=== PATIENT | female | born 1995 | race Caucasian/White ===

== ENCOUNTER 2016-08-13 14:22 | Emergency (ER) | payer OTHER, SELFPAY ==
[~2016-08-13 14:22] MED LIST: /ACETCOD2T PO; ACET50TA PO; ANUS2.5C2 EXT; BACT800T5 PO; DOCU100C PO; IBUP200T2 PO; IRON325T3 PO; MOM30SS PO; PRENTAB74 PO
[2016-08-13 17:35] LABS: BASO % 0.2 % (0.0-1.0); EOS # 0.1 K/mm3 (0.0-0.50); EOS % 2.1 % (0.0-3.0); LARGE UNSTAINED CELL # 0.1 K/mm3 (0.0-0.4); LARGE UNSTAINED CELL % 2.4 % (0.0-4.0); LYMPH # 2.3 K/mm3 (1.5-6.5); MEAN CORPUSCULAR HEMOGLOBIN 26.9 pg (27.0-33.0); MEAN CORPUSCULAR HGB CONC 32.3 g/dl (32.0-36.5); MEAN CORPUSCULAR VOLUME 83.1 fl (80.0-96.0); MONO # 0.2 K/mm3 (0.0-0.8); MONO % 4.2 % (0.0-5.0); NEUTROPHILS # 2.5 K/mm3 (1.8-7.7); PLATELET COUNT, AUTOMATED 227 k/mm3 (150-450); RED CELL DISTRIBUTION WIDTH 13.7 % (11.5-14.5); WHITE BLOOD COUNT 5.2 K/mm3 (4.0-10.0)
--- NOTE | 2016-08-13 18:15 | REP ---
Clinical: Vaginal bleeding and pelvic pain for dating and viability. Technique: Transabdominal first trimester obstetrical ultrasound with color Doppler evaluation. Findings: Single live early intrauterine is appreciated. Gestational sac with yolk sac and pole identified. [place]-rump length of 7 mm corresponds to 6 weeks 4 days gestational age with estimated date of delivery 04/04/2017 . heart rate equals 121 beats per minute. Small subchorionic hemorrhage identified to the right of the gestational sac measuring 29 x 18 x 9 mm. Impression: Single live early intrauterine at 6 weeks 4 days gestational age. Small subchorionic hemorrhage. Complete anatomical assessment should be performed and 19-20 weeks. Signed by Luis A Paniagua MD 08/13/2016 06:07 P
--- NOTE | 2016-08-13 18:52 | EDDOCDS ---
Nurse's Notes [facility] Name: Anne-Marie Williamson Age: 20 yrs Sex: Female : 1995 Arrival Date: 08/13/2016 Time: 14:22 Bed I4 / M4 Private MD: [facility] Diagnosis: Threatened Presentation: 08/13 14:34 Presenting complaint: Patient states: abdominal cramps with vaginal spotting for 3 kr3 days. Home test was positive. Risk factors: The patient reports no loss of conciousness prior to arrival. This patient has not had a hysterectomy. This patient has not begun menopause. Adult Sepsis Screening: The patient does not have new or worsening altered mentation. Patient's respiratory rate is less than 22. Systolic blood pressure is greater than 100. Patient has a qSOFA score of 0- Negative Sepsis Screen. Suicide/Homicide risk assessment- the patient denies having any suicidal and/or homicidal ideations and does not present with any other emotional, behavioral or mental health complaints. Status: Patient is not a pharmacy services representative or dependent. Transition of care: patient was not received from another setting of care. 14:34 Acuity: CHELE Level 3 kr3 14:34 Method Of Arrival: Walkin/Carried/Asstd kr3 Triage Assessment: 14:35 General: Appears in no apparent distress, comfortable, Behavior is cooperative. Pain: kr3 Pain currently is 6 out of 10 on a pain scale. Quality of pain is described as crampy. HIV screening NA for this visit Offered previously. Respiratory: Respiratory effort is even, unlabored. : Reports vaginal bleeding that is spotty. 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 none - PMHx: Anemia; - PSHx: Adenoidectomy; - Social history: Smoking status: Patient uses tobacco products, current every day smoker. No barriers to communication noted, The patient speaks fluent Swedish, Speaks appropriately for age. - Family history: Not pertinent. - : The pt / caregiver states he / she is not on anticoagulants. Home medication list is obtained from the patient. - Exposure Risk Screening:: None identified. Screenin:20 Screening information is obtained from the patient. Fall risk: No risks identified. mcp Assistance ADL's: requires no assistance with activities of daily living. Abuse/DV Screen: The patient / caregiver reports he/she is: not in a situation that causes fear, pain or injury. Nutritional screening: No deficits noted. Advance Directives: Currently, there is no health care proxy. There is no active DNR order. There is no Power of Printing Screen Assembler. home support is adequate. Assessment: 17:19 General: Appears uncomfortable, Behavior is cooperative. Pain: Location: left lower mcp quadrant Pain currently is 4 out of 10 on a pain scale. Quality of pain is described as crampy. Neurological: No deficits noted. Respiratory: Airway is patent Respiratory effort is even, unlabored. : Reports cramping in left lower quadrant(s) vaginal bleeding that is spotty. Derm: Skin is pink, warm & dry. 18:50 General: Appears in no apparent distress, Behavior is cooperative. Pain: Denies pain. mcp Neurological: No deficits noted. Respiratory: Airway is patent Respiratory effort is even, unlabored. Derm: Skin is pink, warm & dry. Vital Signs: 14:24 BP 108 / 60; Pulse 107; Resp 18; Temp 97.2(O); Pulse Ox 100% on R/A; Weight 54.88 kg; ct3 Height 5 ft. 0 in. (152.40 cm) (R); Pain 8/10; 18:51 BP 99 / 57; Pulse 76; Resp 18; Temp 96.9(T); Pulse Ox 100% on R/A; Pain 0/10; mcp 14:24 Body Mass Index 23.63 (54.88 kg, 152.40 cm) ct3 Vitals: 14:24 Log In Time: August 13, 2016 at 14:21. ct3 ED Course: 14:23 Patient visited by Nelsy Merida PCA. ct3 14:23 [facility] is Private Physician. ct3 14:23 Patient moved to Waiting ct3 14:25 Patient moved to Pre RCE ct3 14:35 Triage Initiated kr3 16:13 [facility] Payment Agreement was scanned into [employer] and attached to record. lg 16:26 Lo Mukherjee,RN is Primary Nurse. srm 16:26 Pretty Juarez,PATTIE is Primary Nurse. srm 16:26 Patient moved to Triage 2 srm 16:46 Brad Lemus PA-C is PHCP. ar2 16:46 Zhang Elliott MD is Attending Physician. ar2 16:46 Patient visited by Brad Lemus PA-C. ar2 16:51 Patient moved to I5 / M5 kr3 16:53 Patient moved to I4 / M4 jam1 16:58 Urine Culture Sent. kr3 16:58 UA Sent. kr3 17:11 Rh Only Sent. jam1 17:11 CBC with Diff Sent. jam1 17:17 GC & Chlamydia Amplification Sent. jam1 17:17 Wet Prep Sent. jam1 17:21 The patient / caregiver is instructed regarding the plan of care and ED course. Patient mcp has correct armband on for positive identification. Placed in gown. Bed in low position. Call light in reach. 17:22 Patient visited by Jannet Adamson RN. mcp 17:22 Assist provider with pelvic exam: Set up pelvic tray. Specimens sent to lab. Performed mcp by Brad Lemus PA-C Patient tolerated well. 17:35 Patient moved to Ultrasound br3 17:54 Patient moved to I4 / M4 br3 18:08 PHCP role handed off by Brad Lemus PA-C btw 18:08 Kalpesh Goff PA is PHCP. btw 18:30 US 1st trimester Returned. EDMS 18:43 Prince Vazquez is Referral Physician. btw 18:50 No IV's were initiated during this patient's visit. mcp Point of Care Testing: Urine : 14:45 hCG Reading: Positive; Control Reading: Positive; ar3 Ranges: Order Results: Lab Order: UA; SPEC'M 08/13/16 16:54 Test: APPEARANCE, URINE; Value: CLOUDY; Range: CLEAR; Abnormal: Above high normal; Status: F Test: COLOR, URINE; Value: YELLOW; Range: YELLOW; Status: F Test: PH,URINE; Value: 6.0; Range: 5.0-9.0; Units: UNITS; Status: F Test: SPECIFIC GRAVITY URINE AUTO; Value: 1.017; Range: 1.002-1.035; Status: F Test: PROTEIN, URINE AUTO; Value: NEGATIVE; Range: NEGATIVE; Units: mg/dL; Status: F Test: GLUCOSE, URINE (UA) AUTO; Value: NEGATIVE; Range: NEGATIVE; Units: mg/dL; Status: F Test: KETONE, URINE AUTO; Value: NEGATIVE; Range: NEGATIVE; Units: mg/dL; Status: F Test: UROBILINOGEN, URINE AUTO; Value: 0.2; Range: 0.0-2.0; Units: mg/dL; Status: F Test: BILIRUBIN, URINE AUTO; Value: NEGATIVE; Range: NEGATIVE; Status: F Test: NITRITE, URINE AUTO; Value: NEGATIVE; Range: NEGATIVE; Status: F Test: LEUKOCYTE ESTERASE, URINE AUTO; Value: NEGATIVE; Range: NEGATIVE; Status: F Test: BLOOD, URINE BLOOD; Value: 1+; Range: NEGATIVE; Abnormal: Above high normal; Status: F Test: WBC, URINE AUTO; Value: 1; Range: 0-3; Units: /HPF; Status: F Test: RBC, URINE AUTO; Value: 4; Range: 0-3; Abnormal: Above high normal; Units: /HPF; Status: F Test: BACTERIA, URINE AUTO; Value: 3+; Range: NEGATIVE; Abnormal: Above high normal; Status: F Test: SQUAMOUS EPITHELIAL CELL UR AU; Value: 1; Range: 0-6; Units: /HPF; Status: F Test: MUCUS, URINE; Value: SMALL; Range: NEGATIVE; Status: F Test: HYALINE CAST, URINE AUTO; Value: 0; Range: 0-1; Units: /LPF; Status: F Lab Order: CBC with Diff; SPEC'M 08/13/16 17:06 Test: WHITE BLOOD COUNT; Value: 5.2; Range: 4.0-10.0; Units: K/mm3; Status: F Test: RED BLOOD COUNT; Value: 4.41; Range: 4.00-5.40; Units: M/mm3; Status: F Test: HEMOGLOBIN; Value: 11.8; Range: 12.0-16.0; Abnormal: Below low normal; Units: g/dl; Status: F Test: HEMATOCRIT; Value: 36.6; Range: 36.0-47.0; Units: %; Status: F Test: MEAN CORPUSCULAR VOLUME; Value: 83.1; Range: 80.0-96.0; Units: fl; Status: F Test: MEAN CORPUSCULAR HEMOGLOBIN; Value: 26.9; Range: 27.0-33.0; Abnormal: Below low normal; Units: pg; Status: F Test: MEAN CORPUSCULAR HGB CONC; Value: 32.3; Range: 32.0-36.5; Units: g/dl; Status: F Test: RED CELL DISTRIBUTION WIDTH; Value: 13.7; Range: 11.5-14.5; Units: %; Status: F Test: PLATELET COUNT, AUTOMATED; Value: 227; Range: 150-450; Units: k/mm3; Status: F Test: NEUTROPHILS %; Value: 48.0; Range: 36.0-66.0; Units: %; Status: F Test: LYMPH %; Value: 43.0; Range: 24.0-44.0; Units: %; Status: F Test: MONO %; Value: 4.2; Range: 0.0-5.0; Units: %; Status: F Test: EOS %; Value: 2.1; Range: 0.0-3.0; Units: %; Status: F Test: BASO %; Value: 0.2; Range: 0.0-1.0; Units: %; Status: F Test: LARGE UNSTAINED CELL %; Value: 2.4; Range: 0.0-4.0; Units: %; Status: F Test: NEUTROPHILS #; Value: 2.5; Range: 1.8-7.7; Units: K/mm3; Status: F Test: LYMPH #; Value: 2.3; Range: 1.5-6.5; Units: K/mm3; Status: F Test: MONO #; Value: 0.2; Range: 0.0-0.8; Units: K/mm3; Status: F Test: EOS #; Value: 0.1; Range: 0.0-0.50; Units: K/mm3; Status: F Test: BASO #; Value: 0.0; Range: 0.0-0.2; Units: K/mm3; Status: F Test: LARGE UNSTAINED CELL #; Value: 0.1; Range: 0.0-0.4; Units: K/mm3; Status: F Lab Order: Rh Only; SPEC'M 08/13/16 17:06 Test: RH; Value: POSITIVE; Status: F Lab Order: Wet Prep; SPEC'M 08/13/16 17:06 Test: WET PREP; Value: WET PREP RESULT; Status: F Test: WET PREP; Value: FEW WBC; Status: F Test: WET PREP; Value: FEW RBC; Status: F Test: WET PREP; Value: MODERATE CLUE CELLS PRESENT; Status: F Test: WET PREP; Value: MODERATE SHORT RODS PRESENT; Status: F Test: WET PREP; Value: MANY LONG RODS PRESENT; Status: F Radiology Order: US 1st trimester Test: US 1st trimester REASON FOR EXAMINATION: Bleeding; Clinical: Vaginal bleeding and pelvic pain for dating and viability.; ; Technique: Transabdominal first trimester obstetrical ultrasound with color; Doppler evaluation.; ; Findings:; Single live early intrauterine is appreciated. Gestational sac with; yolk sac and pole identified. [place]-rump length of 7 mm corresponds to 6; weeks 4 days gestational age with estimated date of delivery 04/04/2017 . ; heart rate equals 121 beats per minute. Small subchorionic hemorrhage identified; to the right of the gestational sac measuring 29 x 18 x 9 mm.; ; Impression:; Single live early intrauterine at 6 weeks 4 days gestational age. Small; subchorionic hemorrhage.; Complete anatomical assessment should be performed and 19-20 weeks.; ; ; Signed by; Luis A Paniagua MD 08/13/2016 06:07 P; Outcome: 18:43 Discharge ordered by Provider. btw 18:51 Discharge Assessment: patient administered narcotics - no. The following High Risk [facility] Discharge criteria are identified: None. Discharged to home ambulatory. Condition: stable. Discharge instructions given to patient, Instructed on discharge instructions, follow up and referral plans. Demonstrated understanding of instructions, Pt was receptive of discharge instructions/ teaching. Ultrasound Study completed. Property sent home with patient. 18:52 Patient left the ED. [facility] Signatures: Dispatcher [employer] EDMS Imelda Bello RN RN srm Peters, Mary, RN RN mcp Murphy, Jane, DRAMA PROFESSOR DRAMA PROFESSOR radha1 Сергей Perez Reg Reg lg Robie, Kathleen, RN RN kr3 Brad Lemus, PA-C PA-C ar2 Kylee Patrick br3 Renetta Johns, DRAMA PROFESSOR DRAMA PROFESSOR ar3 Kalpesh Goff PA PA btw Merida, Nelsy, DRAMA PROFESSOR DRAMA PROFESSOR ct3 MTDD
--- NOTE | 2016-08-13 18:52 | EDDOCDS ---
Physician Documentation [facility] Name: Anne-Marie Williamson Age: 20 yrs Sex: Female : 1995 Arrival Date: 08/13/2016 Time: 14:22 Bed I4 / M4 Private MD: [facility] Disposition: 08/13/16 18:43 Discharged to Home/Self Care. Impression: Threatened . - Condition is Stable. - Discharge Instructions: Threatened Miscarriage, [id number]. - Medication Reconciliation, Local Pharmacy Hours form. - Follow up: Prince Vazquez; When: Call to arrange an appointment; Reason: Further diagnostic work-up, Recheck today's complaints, Continuance of care, To establish care. - Problem is new. - Symptoms are unchanged. Historical: - Allergies: no known allergies; - Home Meds: 1. none - PMHx: Anemia; - PSHx: Adenoidectomy; - Social history: Smoking status: Patient uses tobacco products, current every day smoker. No barriers to communication noted, The patient speaks fluent [place], Speaks appropriately for age. - Family history: Not pertinent. - : The pt / caregiver states he / she is not on anticoagulants. Home medication list is obtained from the patient. - Exposure Risk Screening:: None identified. 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 0 in. (152.40 cm) (R); Pain 8/10; 18:51 BP 99 / 57; Pulse 76; Resp 18; Temp 96.9(T); Pulse Ox 100% on R/A; Pain 0/10; mcp 14:24 Body Mass Index 23.63 (54.88 kg, 152.40 cm) ct3 MDM: 14:36 UCG by Nursing ordered. kr3 16:13 [facility] Payment Agreement was scanned into [employer] and attached to record. lg 16:52 Set up pelvic ordered. ar2 16:52 Undress patient appropriately for examination ordered. ar2 16:52 UA Ordered. EDMS 16:52 Urine Culture Ordered. EDMS 16:52 CBC with Diff Ordered. EDMS 16:52 Rh Only Ordered. EDMS 16:52 Wet Prep Ordered. EDMS 16:52 GC & Chlamydia Amplification Ordered. EDMS 16:54 US 1st trimester Ordered. EDMS 17:41 Financial registration complete. gjb 18:36 UA Reviewed. btw 18:36 CBC with Diff Reviewed. btw 18:36 Rh Only Reviewed. btw 18:36 Wet Prep Reviewed. btw 18:36 US 1st trimester Reviewed. btw Point of Care Testing: Urine : 14:45 hCG Reading: Positive; Control Reading: Positive; ar3 Ranges: Signatures: Dispatcher [employer] Jannet Lopez RN RN mcp Сергей Perez Reg Reg lg Pretty Juarez,PATTIE RN kr3 Brad Lemus, PA-Gurjit PA-C ar2 Kalpesh Goff PA PA btw Beck, Gabriela gjb The chart was reviewed and I authenticate all verbal orders and agree with the evaluation and treatment provided.Attachments: 16:13 [facility] Payment Agreement lg MTDD
--- NOTE | 2016-08-15 19:53 | EDDOCDS ---
Physician Documentation [facility] Name: Anne-Marie Williamson Age: 20 yrs Sex: Female : 1995 Arrival Date: 08/13/2016 Time: 14:22 Bed I4 / M4 Private MD: [facility] - [facility] Disposition: 08/13/16 18:43 Discharged to Home/Self Care. Impression: Threatened . - Condition is Stable. - Discharge Instructions: Threatened Miscarriage, Xnkh-[id number]. - Medication Reconciliation, Local Pharmacy Hours form. - Follow up: Prince Vazquez; When: Call to arrange an appointment; Reason: Further diagnostic work-up, Recheck today's complaints, Continuance of care, To establish care. - Problem is new. - Symptoms are unchanged. Historical: - Allergies: no known allergies; - Home Meds: 1. none - PMHx: Anemia; - PSHx: Adenoidectomy; - Social history: Smoking status: Patient uses tobacco products, current every day smoker. No barriers to communication noted, The patient speaks fluent Moldovan, Speaks appropriately for age. - Family history: Not pertinent. - : The pt / caregiver states he / she is not on anticoagulants. Home medication list is obtained from the patient. - Exposure Risk Screening:: None identified. 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 0 in. (152.40 cm) (R); Pain 8/10; 18:51 BP 99 / 57; Pulse 76; Resp 18; Temp 96.9(T); Pulse Ox 100% on R/A; Pain 0/10; mcp 14:24 Body Mass Index 23.63 (54.88 kg, 152.40 cm) ct3 MDM: 14:36 UCG by Nursing ordered. kr3 16:13 [facility] [place] Agreement was scanned into [employer] and attached to record. lg 16:52 Set up pelvic ordered. ar2 16:52 Undress patient appropriately for examination ordered. ar2 16:52 UA Ordered. EDMS 16:52 Urine Culture Ordered. EDMS 16:52 CBC with Diff Ordered. EDMS 16:52 Rh Only Ordered. EDMS 16:52 Wet Prep Ordered. EDMS 16:52 GC & Chlamydia Amplification Ordered. EDMS 16:54 US 1st trimester Ordered. EDMS 17:41 Financial registration complete. gjb 18:36 UA Reviewed. btw 18:36 CBC with Diff Reviewed. btw 18:36 Rh Only Reviewed. btw 18:36 Wet Prep Reviewed. btw 18:36 US 1st trimester Reviewed. btw 08/14 10:17 T-Sheet-- Draft Copy was scanned into [employer] and attached to record. guido Point of Care Testing: Urine : 08/13 14:45 hCG Reading: Positive; Control Reading: Positive; ar3 Ranges: Signatures: Dispatcher [employer] Jannet Lopez, PATTIE BLANKENSHIP mcp Brigitte Robles, Reg Reg gb Сергей Perez, Reg Reg lg Pretty Juarez RN RN kr3 Brad Lemus PA-C PAEma ar2 Kalpesh Goff PA PA btw Beck, Gabriela gjb The chart was reviewed and I authenticate all verbal orders and agree with the evaluation and treatment provided.Attachments: 16:13 [facility] [place] Agreement lg 08/14 10:17 T-Sheet-- Draft Copy Chart Complete [facility]
--- NOTE | 2016-08-15 19:53 | EDDOCDS ---
Nurse's Notes [facility] Name: Anne-Marie Williamson Age: 20 yrs Sex: Female : 1995 Arrival Date: 08/13/2016 Time: 14:22 Bed I4 / M4 Private MD: [facility] Diagnosis: Threatened Presentation: 08/13 14:34 Presenting complaint: Patient states: abdominal cramps with vaginal spotting for 3 kr3 days. Home test was positive. Risk factors: The patient reports no loss of conciousness prior to arrival. This patient has not had a hysterectomy. This patient has not begun menopause. Adult Sepsis Screening: The patient does not have new or worsening altered mentation. Patient's respiratory rate is less than 22. Systolic blood pressure is greater than 100. Patient has a qSOFA score of 0- Negative Sepsis Screen. Suicide/Homicide risk assessment- the patient denies having any suicidal and/or homicidal ideations and does not present with any other emotional, behavioral or mental health complaints. 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 Transition of care: patient was not received from another setting of care. 14:34 Acuity: CHELE Level 3 kr3 14:34 Method Of Arrival: Walkin/Carried/Asstd kr3 Triage Assessment: 14:35 General: Appears in no apparent distress, comfortable, Behavior is cooperative. Pain: kr3 Pain currently is 6 out of 10 on a pain scale. Quality of pain is described as crampy. HIV screening NA for this visit Offered previously. Respiratory: Respiratory effort is even, unlabored. : Reports vaginal bleeding that is spotty. 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 none - PMHx: Anemia; - PSHx: Adenoidectomy; - Social history: Smoking status: Patient uses tobacco products, current every day smoker. No barriers to communication noted, The patient speaks fluent Bengali, Speaks appropriately for age. - Family history: Not pertinent. - : The pt / caregiver states he / she is not on anticoagulants. Home medication list is obtained from the patient. - Exposure Risk Screening:: None identified. Screenin:20 Screening information is obtained from the patient. Fall risk: No risks identified. mcp Assistance ADL's: requires no assistance with activities of daily living. Abuse/DV Screen: The patient / caregiver reports he/she is: not in a situation that causes fear, pain or injury. Nutritional screening: No deficits noted. Advance Directives: Currently, there is no health care proxy. There is no active DNR order. There is no Power of Dehydrogenation Operator. home support is adequate. Assessment: 17:19 General: Appears uncomfortable, Behavior is cooperative. Pain: Location: left lower mcp quadrant Pain currently is 4 out of 10 on a pain scale. Quality of pain is described as crampy. Neurological: No deficits noted. Respiratory: Airway is patent Respiratory effort is even, unlabored. : Reports cramping in left lower quadrant(s) vaginal bleeding that is spotty. Derm: Skin is pink, warm & dry. 18:50 General: Appears in no apparent distress, Behavior is cooperative. Pain: Denies pain. mcp Neurological: No deficits noted. Respiratory: Airway is patent Respiratory effort is even, unlabored. Derm: Skin is pink, warm & dry. Vital Signs: 14:24 BP 108 / 60; Pulse 107; Resp 18; Temp 97.2(O); Pulse Ox 100% on R/A; Weight 54.88 kg; ct3 Height 5 ft. 0 in. (152.40 cm) (R); Pain 8/10; 18:51 BP 99 / 57; Pulse 76; Resp 18; Temp 96.9(T); Pulse Ox 100% on R/A; Pain 0/10; mcp 14:24 Body Mass Index 23.63 (54.88 kg, 152.40 cm) ct3 Vitals: 14:24 Log In Time: August 13, 2016 at 14:21. ct3 ED Course: 14:23 Patient visited by Nelsy Merida PCA. ct3 14:23 [facility] is Private Physician. ct3 14:23 Patient moved to Waiting ct3 14:25 Patient moved to Pre RCE ct3 14:35 Triage Initiated kr3 16:13 [facility] Payment Agreement was scanned into GITR and attached to record. lg 16:26 Lo Mukherjee,RN is Primary Nurse. srm 16:26 Pretty Juarez,PATTIE is Primary Nurse. srm 16:26 Patient moved to Triage 2 srm 16:46 Brad Lemus PA-C is PHCP. ar2 16:46 Zhang Elliott MD is Attending Physician. ar2 16:46 Patient visited by Brad Lemus PA-C. ar2 16:51 Patient moved to I5 / M5 kr3 16:53 Patient moved to I4 / M4 jam1 16:58 Urine Culture Sent. kr3 16:58 UA Sent. kr3 17:11 Rh Only Sent. jam1 17:11 CBC with Diff Sent. jam1 17:17 GC & Chlamydia Amplification Sent. jam1 17:17 Wet Prep Sent. jam1 17:21 The patient / caregiver is instructed regarding the plan of care and ED course. Patient mcp has correct armband on for positive identification. Placed in gown. Bed in low position. Call light in reach. 17:22 Patient visited by Jannet Adamson RN. mcp 17:22 Assist provider with pelvic exam: Set up pelvic tray. Specimens sent to lab. Performed mcp by Brad Lemus PA-C Patient tolerated well. 17:35 Patient moved to Ultrasound br3 17:54 Patient moved to I4 / M4 br3 18:08 PHCP role handed off by Brad Lemus PA-C btw 18:08 Kalpesh Goff PA is PHCP. btw 18:30 US 1st trimester Returned. EDMS 18:43 Prince Vazquez is Referral Physician. btw 18:50 No IV's were initiated during this patient's visit. [facility] 08/14 10:17 T-Sheet-- Draft Copy was scanned into GITR and attached to record. Point of Care Testing: Urine : 08/13 14:45 hCG Reading: Positive; Control Reading: Positive; ar3 Ranges: Order Results: Lab Order: UA; SPEC'M 08/13/16 16:54 Test: APPEARANCE, URINE; Value: CLOUDY; Range: CLEAR; Abnormal: Above high normal; Status: F Test: COLOR, URINE; Value: YELLOW; Range: YELLOW; Status: F Test: PH,URINE; Value: 6.0; Range: 5.0-9.0; Units: UNITS; Status: F Test: SPECIFIC GRAVITY URINE AUTO; Value: 1.017; Range: 1.002-1.035; Status: F Test: PROTEIN, URINE AUTO; Value: NEGATIVE; Range: NEGATIVE; Units: mg/dL; Status: F Test: GLUCOSE, URINE (UA) AUTO; Value: NEGATIVE; Range: NEGATIVE; Units: mg/dL; Status: F Test: KETONE, URINE AUTO; Value: NEGATIVE; Range: NEGATIVE; Units: mg/dL; Status: F Test: UROBILINOGEN, URINE AUTO; Value: 0.2; Range: 0.0-2.0; Units: mg/dL; Status: F Test: BILIRUBIN, URINE AUTO; Value: NEGATIVE; Range: NEGATIVE; Status: F Test: NITRITE, URINE AUTO; Value: NEGATIVE; Range: NEGATIVE; Status: F Test: LEUKOCYTE ESTERASE, URINE AUTO; Value: NEGATIVE; Range: NEGATIVE; Status: F Test: BLOOD, URINE BLOOD; Value: 1+; Range: NEGATIVE; Abnormal: Above high normal; Status: F Test: WBC, URINE AUTO; Value: 1; Range: 0-3; Units: /HPF; Status: F Test: RBC, URINE AUTO; Value: 4; Range: 0-3; Abnormal: Above high normal; Units: /HPF; Status: F Test: BACTERIA, URINE AUTO; Value: 3+; Range: NEGATIVE; Abnormal: Above high normal; Status: F Test: SQUAMOUS EPITHELIAL CELL UR AU; Value: 1; Range: 0-6; Units: /HPF; Status: F Test: MUCUS, URINE; Value: SMALL; Range: NEGATIVE; Status: F Test: HYALINE CAST, URINE AUTO; Value: 0; Range: 0-1; Units: /LPF; Status: F Lab Order: Urine Culture; SPEC'M 08/13/16 16:54 Test: URINE CULTURE; Value: <EXTERNAL COMMENT eCWMed> FULL REPORT IN LAB NOTES (eCW and Medent).; Status: F Test: URINE CULTURE; Value: ORGANISM 1: ESCHERICHIA COLI; Status: F Test: URINE CULTURE; Value: ESCHERICHIA COLI; Status: F Test: URINE CULTURE; Value: COLONY COUNT CFU/ml >100,000; Status: F Test: URINE CULTURE; Value: GRAM NEG SENSI - VITEK 80; Status: F Test: URINE CULTURE; Value: Method: VIT2; Status: F Test: URINE CULTURE; Value: EXTD BRD SPCTRM BETA LACTAMASE -; Status: F Test: URINE CULTURE; Value: TRIMETHOPRIM/SULFAMETHOXAZOLE <=20 S; Status: F Test: URINE CULTURE; Value: AMPICILLIN 4 S; Status: F Test: URINE CULTURE; Value: GENTAMICIN <=1 S; Status: F Test: URINE CULTURE; Value: NITROFURANTOIN <=16 S; Status: F Test: URINE CULTURE; Value: CEFAZOLIN <=4 S; Status: F Test: URINE CULTURE; Value: LEVOFLOXACIN <=0.12 S; Status: F Test: URINE CULTURE; Value: TOBRAMYCIN <=1 S; Status: F Test: URINE CULTURE; Value: CEFTRIAXONE <=1 S; Status: F Test: URINE CULTURE; Value: CEFTAZIDIME <=1 S; Status: F Test: URINE CULTURE; Value: AMPICILLIN/SULBACTAM <=2 S; Status: F Test: URINE CULTURE; Value: PIPERACILLIN/TAZOBACTAM <=4 S; Status: F Test: URINE CULTURE; Value: AZTREONAM <=1 S; Status: F Test: URINE CULTURE; Value: ERTAPENEM <=0.5 S; Status: F Test: URINE CULTURE; Value: MEROPENEM <=0.25 S; Status: F Test: URINE CULTURE; Value: TIGECYCLINE <=0.5 S; Status: F Test: URINE CULTURE; Value: CEFEPIME <=1 S; Status: F Lab Order: CBC with Diff; SPEC'M 08/13/16 17:06 Test: WHITE BLOOD COUNT; Value: 5.2; Range: 4.0-10.0; Units: K/mm3; Status: F Test: RED BLOOD COUNT; Value: 4.41; Range: 4.00-5.40; Units: M/mm3; Status: F Test: HEMOGLOBIN; Value: 11.8; Range: 12.0-16.0; Abnormal: Below low normal; Units: g/dl; Status: F Test: HEMATOCRIT; Value: 36.6; Range: 36.0-47.0; Units: %; Status: F Test: MEAN CORPUSCULAR VOLUME; Value: 83.1; Range: 80.0-96.0; Units: fl; Status: F Test: MEAN CORPUSCULAR HEMOGLOBIN; Value: 26.9; Range: 27.0-33.0; Abnormal: Below low normal; Units: pg; Status: F Test: MEAN CORPUSCULAR HGB CONC; Value: 32.3; Range: 32.0-36.5; Units: g/dl; Status: F Test: RED CELL DISTRIBUTION WIDTH; Value: 13.7; Range: 11.5-14.5; Units: %; Status: F Test: PLATELET COUNT, AUTOMATED; Value: 227; Range: 150-450; Units: k/mm3; Status: F Test: NEUTROPHILS %; Value: 48.0; Range: 36.0-66.0; Units: %; Status: F Test: LYMPH %; Value: 43.0; Range: 24.0-44.0; Units: %; Status: F Test: MONO %; Value: 4.2; Range: 0.0-5.0; Units: %; Status: F Test: EOS %; Value: 2.1; Range: 0.0-3.0; Units: %; Status: F Test: BASO %; Value: 0.2; Range: 0.0-1.0; Units: %; Status: F Test: LARGE UNSTAINED CELL %; Value: 2.4; Range: 0.0-4.0; Units: %; Status: F Test: NEUTROPHILS #; Value: 2.5; Range: 1.8-7.7; Units: K/mm3; Status: F Test: LYMPH #; Value: 2.3; Range: 1.5-6.5; Units: K/mm3; Status: F Test: MONO #; Value: 0.2; Range: 0.0-0.8; Units: K/mm3; Status: F Test: EOS #; Value: 0.1; Range: 0.0-0.50; Units: K/mm3; Status: F Test: BASO #; Value: 0.0; Range: 0.0-0.2; Units: K/mm3; Status: F Test: LARGE UNSTAINED CELL #; Value: 0.1; Range: 0.0-0.4; Units: K/mm3; Status: F Lab Order: Rh Only; SPEC08/13/16 17:06 Test: RH; Value: POSITIVE; Status: F Lab Order: Wet Prep; SPEC'M 08/13/16 17:06 Test: WET PREP; Value: WET PREP RESULT; Status: F Test: WET PREP; Value: FEW WBC; Status: F Test: WET PREP; Value: FEW RBC; Status: F Test: WET PREP; Value: MODERATE CLUE CELLS PRESENT; Status: F Test: WET PREP; Value: MODERATE SHORT RODS PRESENT; Status: F Test: WET PREP; Value: MANY LONG RODS PRESENT; Status: F Lab Order: GC & Chlamydia Amplification; SPEC'M 08/13/16 17:06 Test: CHLAMYDIA DNA AMPLIFICATION; Value: NEGATIVE; Range: NEGATIVE; Status: F Test: GC DNA AMPLIFICATION; Value: NEGATIVE; Range: NEGATIVE; Status: F Radiology Order: US 1st trimester Test: US 1st trimester REASON FOR EXAMINATION: Bleeding; Clinical: Vaginal bleeding and pelvic pain for dating and viability.; ; Technique: Transabdominal first trimester obstetrical ultrasound with color; Doppler evaluation.; ; Findings:; Single live early intrauterine is appreciated. Gestational sac with; yolk sac and pole identified. [place]-rump length of 7 mm corresponds to 6; weeks 4 days gestational age with estimated date of delivery 04/04/2017 . ; heart rate equals 121 beats per minute. Small subchorionic hemorrhage identified; to the right of the gestational sac measuring 29 x 18 x 9 mm.; ; Impression:; Single live early intrauterine at 6 weeks 4 days gestational age. Small; subchorionic hemorrhage.; Complete anatomical assessment should be performed and 19-20 weeks.; ; ; Signed by; Luis A Paniagua MD 08/13/2016 06:07 P; Outcome: 18:43 Discharge ordered by Provider. btw 18:51 Discharge Assessment: patient administered narcotics - no. The following High Risk [facility] Discharge criteria are identified: None. Discharged to home ambulatory. Condition: stable. Discharge instructions given to patient, Instructed on discharge instructions, follow up and referral plans. Demonstrated understanding of instructions, Pt was receptive of discharge instructions/ teaching. Ultrasound Study completed. Property sent home with patient. 18:[address] [facility] Signatures: Dispatcher Med[employer] EDMS Imelda Bello, Jannet Burr RN, RN RN mcp Murphy, Jane, ADORE PROGRAM PLANNER jam1 Brigitte Robles, Reg Reg gb Сергей Perez, Reg Reg lg Pretty Juarez RN RN kr3 Brad Lemus, KIEL-C PA-C ar2 Kylee Patrick br3 Renetta Johns, PROGRAM PLANNER PROGRAM PLANNER ar3 Kalpesh Goff PA PA btw Nelsy Merida, PROGRAM PLANNER PROGRAM PLANNER ct3 Chart Complete MTDD
--- NOTE | 2016-08-15 19:53 | EDDOCDS ---
Physician Documentation [facility] Name: Anne-Marie Williamson Age: 20 yrs Sex: Female : 1995 Arrival Date: 08/13/2016 Time: 14:22 Bed I4 / M4 Private MD: [facility] Disposition: 08/13/16 18:43 Discharged to Home/Self Care. Impression: Threatened . - Condition is Stable. - Discharge Instructions: Threatened Miscarriage, [id number]. - Medication Reconciliation, Local Pharmacy Hours form. - Follow up: Prince Vazquez; When: Call to arrange an appointment; Reason: Further diagnostic work-up, Recheck today's complaints, Continuance of care, To establish care. - Problem is new. - Symptoms are unchanged. Historical: - Allergies: no known allergies; - Home Meds: 1. none - PMHx: Anemia; - PSHx: Adenoidectomy; - Social history: Smoking status: Patient uses tobacco products, current every day smoker. No barriers to communication noted, The patient speaks fluent Moroccan, Speaks appropriately for age. - Family history: Not pertinent. - : The pt / caregiver states he / she is not on anticoagulants. Home medication list is obtained from the patient. - Exposure Risk Screening:: None identified. 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 0 in. (152.40 cm) (R); Pain 8/10; 18:51 BP 99 / 57; Pulse 76; Resp 18; Temp 96.9(T); Pulse Ox 100% on R/A; Pain 0/10; mcp 14:24 Body Mass Index 23.63 (54.88 kg, 152.40 cm) ct3 MDM: 14:36 UCG by Nursing ordered. kr3 16:13 [facility] Payment Agreement was scanned into StormMQ and attached to record. lg 16:52 Set up pelvic ordered. ar2 16:52 Undress patient appropriately for examination ordered. ar2 16:52 UA Ordered. EDMS 16:52 Urine Culture Ordered. EDMS 16:52 CBC with Diff Ordered. EDMS 16:52 Rh Only Ordered. EDMS 16:52 Wet Prep Ordered. EDMS 16:52 GC & Chlamydia Amplification Ordered. EDMS 16:54 US 1st trimester Ordered. EDMS 17:41 Financial registration complete. gjb 18:36 UA Reviewed. btw 18:36 CBC with Diff Reviewed. btw 18:36 Rh Only Reviewed. btw 18:36 Wet Prep Reviewed. btw 18:36 US 1st trimester Reviewed. btw 08/14 10:17 T-Sheet-- Draft Copy was scanned into StormMQ and attached to record. guido Point of Care Testing: Urine : 08/13 14:45 hCG Reading: Positive; Control Reading: Positive; ar3 Ranges: Signatures: Dispatcher [employer]Host Jannet Lopez, PATTIE BLANKENSHIP mcp Brigitte Robles, Reg Reg gb Сергей Perez, Reg Reg lg Pretty Juarez RN RN kr3 Brad Lemus PA-C PAEma ar2 Kalpesh Goff PA PA btw Beck, Gabriela gjb The chart was reviewed and I authenticate all verbal orders and agree with the evaluation and treatment provided.Attachments: 16:13 [facility] Payment Agreement lg 08/14 10:17 T-Sheet-- Draft Copy Chart Complete [facility]
== END 2016-08-13 18:52 | disposition home or self-care (01) ==
LOC: M ED 14:22
DX: O20.0 Threatened abortion (principal); O99.011 Anemia complicating pregnancy, first trimester; O99.331 Smoking (tobacco) complicating pregnancy, first trimester; F17.210 Nicotine dependence, cigarettes, uncomplicated; Z3A.01 Less than 8 weeks gestation of pregnancy

== ENCOUNTER → 2016-08-15 | Outpatient (CLI) | payer OTHER, SELFPAY ==
[2016-08-15 16:41] LABS: BASO % 0.5 % (0.0-1.0); EOS # 0.1 K/mm3 (0.0-0.50); EOS % 2.4 % (0.0-3.0); LARGE UNSTAINED CELL # 0.2 K/mm3 (0.0-0.4); LARGE UNSTAINED CELL % 2.7 % (0.0-4.0); LYMPH # 2.3 K/mm3 (1.5-6.5); LYMPH % 41.6 % (24.0-44.0); MEAN CORPUSCULAR HEMOGLOBIN 27.3 pg (27.0-33.0); MEAN CORPUSCULAR HGB CONC 32.8 g/dl (32.0-36.5); MEAN CORPUSCULAR VOLUME 83.4 fl (80.0-96.0); MONO # 0.3 K/mm3 (0.0-0.8); MONO % 4.9 % (0.0-5.0); NEUTROPHILS # 2.6 K/mm3 (1.8-7.7); NEUTROPHILS % 47.8 % (36.0-66.0); PLATELET COUNT, AUTOMATED 237 k/mm3 (150-450); RED CELL DISTRIBUTION WIDTH 13.4 % (11.5-14.5); WHITE BLOOD COUNT 5.5 K/mm3 (4.0-10.0)
[2016-08-16 11:37] LABS: HBsAg Prenatal NEGATIVE (NEGATIVE)
[2016-08-16 11:43] LABS: CONTROL LINE INT CTR LINE PRESENT; HIV SCRN NEGATIVE (NEGATIVE); HIV SCRN1 NEGATIVE (NEGATIVE)
== END ==
LOC: M LAB 15:31
PROVIDERS: ATTEND Obstetrics & Gynecology
DX: Z34.81 Encounter for supervision of other normal pregnancy, first trimester (principal)

== ENCOUNTER → 2016-09-16 | Outpatient (CLI) | payer SELFPAY ==
[2016-09-16 18:42] LABS: ALBUMIN 3.1 GM/DL (3.2-5.2); ALBUMIN/GLOBULIN RATIO 0.97 (1.00-1.93); ALKALINE PHOSPHATASE 48 U/L (45-117); ALT/SGPT 93 U/L (12-78); AST/SGOT 56 U/L (15-37); BILIRUBIN,DIRECT < 0.1 MG/DL (0.0-0.2); BILIRUBIN,TOTAL 0.2 MG/DL (0.2-1.0); TOTAL PROTEIN 6.3 GM/DL (6.4-8.2)
== END ==
LOC: M SMT 14:19
PROVIDERS: ATTEND Obstetrics & Gynecology
DX: B18.2 Chronic viral hepatitis C (principal)

== ENCOUNTER → 2016-11-14 | Outpatient (CLI) | payer SELFPAY ==
[2016-11-14 17:54] LABS: ALBUMIN 2.7 GM/DL (3.2-5.2); ALBUMIN/GLOBULIN RATIO 0.77 (1.00-1.93); ALKALINE PHOSPHATASE 56 U/L (45-117); ALT/SGPT 69 U/L (12-78); AST/SGOT 42 U/L (15-37); BILIRUBIN,DIRECT < 0.1 MG/DL (0.0-0.2); BILIRUBIN,TOTAL 0.3 MG/DL (0.2-1.0); TOTAL PROTEIN 6.2 GM/DL (6.4-8.2)
== END ==
LOC: M SMT 14:56
PROVIDERS: ATTEND Advanced Practice Midwife
DX: O98.412 Viral hepatitis complicating pregnancy, second trimester (principal); Z3A.00 Weeks of gestation of pregnancy not specified

== ENCOUNTER → 2016-12-11 | Outpatient (CLI) | payer SELFPAY ==
--- NOTE | 2016-12-24 09:44 | REP ---
Clinical: Anatomical evaluation. Comparison: 08/13/2016 . Findings: Examination demonstrates a single live intrauterine in breech presentation. motion is identified by technologist. Placenta is noted posteriorly and grade zero without evidence for placenta previa or abruption. Amniotic fluid volume is normal. Cervix measures 3.9 cm in length and appears closed. No evidence for nuchal cord. Gestational age by LMP 27 weeks 2 days with JAGDISH 03/10/2017 . Gestational age by current measurements 24 weeks 1 day with JAGDISH 04/01/2017 . FHR equals 136 beats per minute. BPD 5.8 cm 23 weeks 6 days HC 21.8 cm 23 weeks 6 days AC 21.3 cm 25 weeks 6 days FL 4.5 cm 24 weeks 5 days HL 4.5 cm 26 weeks 5 days HC/AC ratio 1.02 Estimated weight 772 grams ( 86th percentile based on age by first ultrasound at 23 weeks 5 days ). Anatomical assessment demonstrates normal structures including cranium, choroid plexus, cavum, cerebellum/posterior fossa, facial features, lungs, four-chamber heart/ventricular outflow tracts, diaphragm, stomach, cord insertion/three-vessel cord, kidneys/bladder, spine, and extremities. Impression: 1. Single live intrauterine in breech presentation demonstrating appropriate interval growth compared to first ultrasound. 2. Anatomical assessment is complete and normal. Signed by Luis A Paniagua MD 12/12/2016 06:13 A
== END ==
LOC: M SMT 13:08
PROVIDERS: ATTEND Surgery
DX: Z34.82 Encounter for supervision of other normal pregnancy, second trimester (principal); Z3A.24 24 weeks gestation of pregnancy

== ENCOUNTER → 2016-12-17 | Outpatient (REF) | payer MEDICAID, OTHER ==
[2016-12-17 14:54] LABS: BASO % 0.2 % (0.0-1.0); EOS # 0.1 K/mm3 (0.0-0.50); EOS % 1.1 % (0.0-3.0); LARGE UNSTAINED CELL # 0.1 K/mm3 (0.0-0.4); LARGE UNSTAINED CELL % 1.2 % (0.0-4.0); LYMPH # 1.7 K/mm3 (1.5-6.5); LYMPH % 24.8 % (24.0-44.0); MEAN CORPUSCULAR HEMOGLOBIN 30.3 pg (27.0-33.0); MEAN CORPUSCULAR HGB CONC 33.6 g/dl (32.0-36.5); MONO # 0.4 K/mm3 (0.0-0.8); MONO % 6.5 % (0.0-5.0); NEUTROPHILS # 4.4 K/mm3 (1.8-7.7); NEUTROPHILS % 66.2 % (36.0-66.0); PLATELET COUNT, AUTOMATED 237 k/mm3 (150-450); RED CELL DISTRIBUTION WIDTH 13.4 % (11.5-14.5); WHITE BLOOD COUNT 6.7 K/mm3 (4.0-10.0)
[2016-12-17 15:27] LABS: ALBUMIN 2.9 GM/DL (3.2-5.2); ALBUMIN/GLOBULIN RATIO 0.81 (1.00-1.93); ALKALINE PHOSPHATASE 67 U/L (45-117); ALT/SGPT 42 U/L (12-78); ANION GAP 7 MEQ/L (8-16); AST/SGOT 33 U/L (15-37); BILIRUBIN,TOTAL 0.3 MG/DL (0.2-1.0); BLOOD UREA NITROGEN 8 MG/DL (7-18); CALCIUM LEVEL 8.5 MG/DL (8.5-10.1); CARBON DIOXIDE LEVEL 26 MEQ/L (21-32); CHLORIDE LEVEL 104 MEQ/L (98-107); CREATININE FOR GFR 0.28 MG/DL (0.55-1.02); GLOMERULAR FILTRATION RATE > 60.0 (>60); GLUCOSE, FASTING 52 MG/DL (70-105); POTASSIUM SERUM 4.1 MEQ/L (3.5-5.1); SODIUM LEVEL 137 MEQ/L (136-145); TOTAL PROTEIN 6.5 GM/DL (6.4-8.2)
== END ==
LOC: M SFHCPLAZ 11:03
PROVIDERS: ATTEND Internal Medicine Infectious Disease
DX: B19.20 Unspecified viral hepatitis C without hepatic coma (principal)

== ENCOUNTER → 2017-01-01 | Outpatient (CLI) | payer OTHER ==
[~2017-01-01] MED LIST changes: +IBUP-1114 PO; +PRENTAB9 PO
[2017-01-01 16:24] LABS: BASO % 0.1 % (0.0-1.0); EOS # 0.1 K/mm3 (0.0-0.50); LARGE UNSTAINED CELL # 0.1 K/mm3 (0.0-0.4); LARGE UNSTAINED CELL % 1.5 % (0.0-4.0); LYMPH # 1.7 K/mm3 (1.5-6.5); LYMPH % 26.3 % (24.0-44.0); MEAN CORPUSCULAR HEMOGLOBIN 30.4 pg (27.0-33.0); MEAN CORPUSCULAR HGB CONC 33.1 g/dl (32.0-36.5); MEAN CORPUSCULAR VOLUME 91.9 fl (80.0-96.0); MONO # 0.3 K/mm3 (0.0-0.8); NEUTROPHILS # 4.3 K/mm3 (1.8-7.7); PLATELET COUNT, AUTOMATED 260 k/mm3 (150-450); RED CELL DISTRIBUTION WIDTH 13.1 % (11.5-14.5); WHITE BLOOD COUNT 6.6 K/mm3 (4.0-10.0)
[2017-01-06 14:10] LABS: HEPATITIS C QUANTITATION 261450 IU/mL (.)
== END ==
LOC: M WUC 12:24
PROVIDERS: ATTEND Advanced Practice Midwife
DX: O98.412 Viral hepatitis complicating pregnancy, second trimester (principal)

== ENCOUNTER → 2017-02-20 | Outpatient (REF) | payer MEDICAID, OTHER ==
[2017-02-20 14:02] LABS: ALBUMIN 2.8 GM/DL (3.2-5.2); ALBUMIN/GLOBULIN RATIO 0.82 (1.00-1.93); ALKALINE PHOSPHATASE 93 U/L (45-117); ALT/SGPT 38 U/L (12-78); AST/SGOT 35 U/L (15-37); BILIRUBIN,DIRECT < 0.1 MG/DL (0.0-0.2); BILIRUBIN,TOTAL 0.3 MG/DL (0.2-1.0); TOTAL PROTEIN 6.2 GM/DL (6.4-8.2)
[2017-02-24 10:09] LABS: HEPATITIS C QUANTITATION 333090 IU/mL (.)
== END ==
LOC: M SFHCPLAZ 12:03
PROVIDERS: ATTEND Internal Medicine Infectious Disease
DX: B19.20 Unspecified viral hepatitis C without hepatic coma (principal)

== ENCOUNTER → 2017-02-21 | Outpatient (CLI) | payer OTHER, MEDICAID ==
[2017-02-21 17:12] LABS: AMYLASE 37 U/L (25-115)
== END ==
LOC: M SMT 14:56
PROVIDERS: ATTEND Advanced Practice Midwife
DX: R10.816 Epigastric abdominal tenderness (principal)

== ENCOUNTER → 2017-03-04 | Outpatient (CLI) | payer MEDICAID, OTHER ==
--- NOTE | 2017-03-04 08:40 | REP ---
Clinical: Epigastric and abdominal pain. Technique: Esquivel scale ultrasound using curved array transducer. Findings: The liver and pancreas are normal in contour, size, and echogenicity without focal hepatic or pancreatic lesions identified. The gallbladder is normal without gallstones, wall thickening or pericholecystic fluid. No biliary ductal dilatation is appreciated, and the common bile duct measures 1.7 mm diameter. The right kidney is normal in reniform shape without hydronephrosis and measures 11.1 x 5.9 x 5.1 cm. Rounded echogenic foci within the kidney measuring up to 9 mm suggest small benign angiomyolipomas. No ascites. Visualized portions of the abdominal aorta normal. Impression: Subcentimeter renal angiomyolipomas suggested. Otherwise, normal right upper quadrant and gallbladder abdominal ultrasound. Signed by Luis A Paniagua MD 03/04/2017 08:32 A
== END ==
LOC: M RAD 07:53
PROVIDERS: ATTEND Advanced Practice Midwife
DX: R10.816 Epigastric abdominal tenderness (principal)

== ENCOUNTER → 2017-03-11 | Outpatient (CLI) | payer MEDICAID, OTHER ==
[2017-03-11 20:03] LABS: BASO % 0.2 % (0.0-1.0); EOS # 0.1 K/mm3 (0.0-0.50); EOS % 1.4 % (0.0-3.0); LARGE UNSTAINED CELL # 0.1 K/mm3 (0.0-0.4); LARGE UNSTAINED CELL % 1.1 % (0.0-4.0); LYMPH # 2.5 K/mm3 (1.5-6.5); LYMPH % 27.8 % (24.0-44.0); MEAN CORPUSCULAR HEMOGLOBIN 29.5 pg (27.0-33.0); MEAN CORPUSCULAR HGB CONC 32.8 g/dl (32.0-36.5); MONO # 0.5 K/mm3 (0.0-0.8); MONO % 5.8 % (0.0-5.0); NEUTROPHILS # 5.4 K/mm3 (1.8-7.7); NEUTROPHILS % 63.7 % (36.0-66.0); PLATELET COUNT, AUTOMATED 269 k/mm3 (150-450); RED CELL DISTRIBUTION WIDTH 13.7 % (11.5-14.5); WHITE BLOOD COUNT 8.5 K/mm3 (4.0-10.0)
== END ==
LOC: M SMT 14:38
PROVIDERS: ATTEND Advanced Practice Midwife
DX: Z34.83 Encounter for supervision of other normal pregnancy, third trimester (principal)

== ENCOUNTER 2017-03-12 23:55 | Outpatient (CLI) | payer MEDICAID, OTHER ==
[~2017-03-12] VITALS: Ht 154.9 cm; Wt 71.6 kg
[~2017-03-12 23:55] MED LIST changes: -IBUP-1114 PO; -PRENTAB9 PO
[2017-03-13 00:05] VITALS: BP 116/68
== END 2017-03-13 00:55 | disposition home or self-care (01) ==
LOC: M LDO 23:55
PROVIDERS: ATTEND Specialist
DX: O26.893 Other specified pregnancy related conditions, third trimester (principal); M54.5 Low back pain; Z3A.36 36 weeks gestation of pregnancy

== ENCOUNTER 2017-03-17 11:29 | Emergency (ER) | payer OTHER ==
[~2017-03-17] VITALS: Ht 154.9 cm; Wt 73.6 kg
[2017-03-17 11:30] VITALS: BP 114/67
== END 2017-03-17 13:47 | disposition home or self-care (01) ==
LOC: M ED 11:29
DX: O99.513 Diseases of the respiratory system complicating pregnancy, third trimester (principal); J02.8 Acute pharyngitis due to other specified organisms; O98.513 Other viral diseases complicating pregnancy, third trimester; B34.9 Viral infection, unspecified; Z3A.37 37 weeks gestation of pregnancy; O99.343 Other mental disorders complicating pregnancy, third trimester; F43.10 Post-traumatic stress disorder, unspecified; O99.333 Smoking (tobacco) complicating pregnancy, third trimester; F17.210 Nicotine dependence, cigarettes, uncomplicated

== ENCOUNTER 2017-04-11 19:06 | Inpatient (IN) | payer OTHER ==
[~2017-04-11] VITALS: Ht 154.9 cm; Wt 74.8 kg
[2017-04-11] MEDS ORDERED: LACTATED RINGER'S 1000 ML IV STA (19:34)
[2017-04-11] MEDS: LR 1,000 ML IV SCH (19:34)
[2017-04-11] MEDS ORDERED: miSOPROStol 50 MCG 1/2 TAB (S0191) SL ONE (19:45)
[2017-04-11 20:04] VITALS: BP 105/65
[2017-04-11 20:14] VITALS: BP 97/56
[2017-04-11 20:26] LABS: MEAN CORPUSCULAR HEMOGLOBIN 29.3 pg (27.0-33.0); MEAN CORPUSCULAR VOLUME 86.1 fl (80.0-96.0); RED CELL DISTRIBUTION WIDTH 14.1 % (11.5-14.5); WHITE BLOOD COUNT 9.8 10^3/uL (4.0-10.0)
[2017-04-11 20:44] VITALS: BP 96/57
[2017-04-11 20:58] LABS: ALBUMIN/GLOBULIN RATIO 0.83 (1.00-1.93); ALKALINE PHOSPHATASE 208 U/L (45-117); ALT/SGPT 31 U/L (12-78); ANION GAP 12 MEQ/L (8-16); AST/SGOT 32 U/L (15-37); BILIRUBIN,TOTAL 0.2 MG/DL (0.2-1.0); BLOOD UREA NITROGEN 8 MG/DL (7-18); CALCIUM LEVEL 9.1 MG/DL (8.5-10.1); CARBON DIOXIDE LEVEL 22 MEQ/L (21-32); CHLORIDE LEVEL 103 MEQ/L (98-107); CREATININE FOR GFR 0.35 MG/DL (0.55-1.02); GLOMERULAR FILTRATION RATE > 60.0 (>60); GLUCOSE, FASTING 81 MG/DL (70-105); POTASSIUM SERUM 4.3 MEQ/L (3.5-5.1); SODIUM LEVEL 137 MEQ/L (136-145); TOTAL PROTEIN 6.6 GM/DL (6.4-8.2)
[2017-04-11 21:16] VITALS: BP 99/51
[2017-04-11 21:45] VITALS: BP 100/56
[2017-04-11 23:47] VITALS: BP 96/63
[2017-04-12] VITALS (43 sets, daily range): BP systolic 80–117; BP diastolic 45–72
[2017-04-12] MEDS ORDERED: OXYTOCIN DRIP 30 UNITS in APPROPRIATE DILUENT 1 EA IV SCH ×2 (03:00→17:22)
[2017-04-12] MEDS: LR 1,000 ML IV SCH (14:18)
[2017-04-12] MEDS ORDERED: FENTANYL 2MCG/ML ROPIVACAINE 0.2% IN 0.9% NACL 200ML IVBAG As Ordered ONE (15:39)
[2017-04-12] MEDS ORDERED: ePHEDrine SULFATE 25 MG/5 ML(5MG/ML) SYRINGE As Ordered ONE (16:45)
[2017-04-12] MEDS ORDERED: ePHEDrine SULFATE 25 MG/5 ML(5MG/ML) SYRINGE IV PRN (17:15)
[2017-04-12] MEDS ORDERED: NALOXONE INJ 0.4 MG/1 ML VIAL (J2310) IV PRN (17:15)
[2017-04-12] MEDS ORDERED: EPIDURAL COMMENT XX SCH (17:15)
[2017-04-12] MEDS ORDERED: FENTANYL/ROPIVACAINE/NACL BAG 200 ML EPIDURAL SCH (17:15)
[2017-04-12] MEDS ORDERED: diphenhydrAMINE INJ 50MG/ML VIAL (J1200) IV PRN (17:15)
[2017-04-12] MEDS ORDERED: REFRIGERATOR IV KEYS XX PRN (17:15)
[2017-04-12] MEDS ORDERED: ONDANSETRON 4MG/2ML VIAL (J2405) IV PRN ×2 (17:15→17:30)
[2017-04-12] MEDS ORDERED: EPIDURAL/PCA KEYS XX PRN (17:15)
[2017-04-12] MEDS ORDERED: PROMETHAZINE 25 MG TAB PO PRN (17:30)
[2017-04-12] MEDS ORDERED: DOCUSATE SODIUM 100 MG CAP PO PRN (17:30)
[2017-04-12] MEDS ORDERED: DIBUCAINE 1% OINTMENT 30GM TOP PRN (17:30)
[2017-04-12] MEDS ORDERED: RHOGAM 300 MCG (1500 IU) INJ (J2790) IM SCH (17:30)
[2017-04-12] MEDS ORDERED: MEASLES,MUMPS,RUBELLA VACCINE INJ (MMR-II) (90707) SC SCH (17:30)
[2017-04-13 06:12] VITALS: BP 98/50
[2017-04-13] MEDS: PRENATAL VITAMINS CHEWABLE TABLET PO SCH (09:02)
[2017-04-13] MEDS: IBUPROFEN 800 MG TAB PO PRN ×2 (09:05→17:25)
[2017-04-13 18:00] VITALS: BP 110/56
[2017-04-13] MEDS: ACETAMINOPHEN 500 MG TAB PO PRN (21:32)
[2017-04-14] MEDS: IBUPROFEN 800 MG TAB PO PRN ×2 (01:51→08:35)
[2017-04-14 06:00] VITALS: BP 95/54
[2017-04-14] MEDS: PRENATAL VITAMINS CHEWABLE TABLET PO SCH (08:36)
[2017-04-14] MEDS ORDERED: IBUP-1114 PO (08:40)
[2017-04-14] MEDS ORDERED: ACET50TA PO (08:40)
[2017-04-14] MEDS ORDERED: PRENTAB9 PO (08:40)
[2017-04-14] MEDS: ACETAMINOPHEN 500 MG TAB PO PRN (12:03)
== END 2017-04-14 13:35 | disposition home or self-care (01) | DRG 560 ==
LOC: M LDI 19:06 → M OBS 04-12 19:35
PROVIDERS: ADMIT Obstetrics & Gynecology; ATTEND Obstetrics & Gynecology
PROC: 3E0DXGC Introduction of Other Therapeutic Substance into Mouth and Pharynx, External Approach (ICD-10-PCS; 2017-04-11)
PROC: 10E0XZZ Delivery of Products of Conception, External Approach (ICD-10-PCS; principal; 2017-04-12)
PROC: 10907ZC Drainage of Amniotic Fluid, Therapeutic from Products of Conception, Via Natural or Artificial Opening (ICD-10-PCS; 2017-04-12)
DX: O48.0 Post-term pregnancy (principal); O98.42 Viral hepatitis complicating childbirth; B15.9 Hepatitis A without hepatic coma; Z37.0 Single live birth; Z3A.41 41 weeks gestation of pregnancy; B19.20 Unspecified viral hepatitis C without hepatic coma; Z79.899 Other long term (current) drug therapy; O69.2XX0 Labor and delivery complicated by other cord entanglement, with compression, not applicable or unspecified

== ENCOUNTER 2017-05-25 12:09 | Emergency (ER) | payer OTHER ==
[~2017-05-25] VITALS: Ht 154.9 cm; Wt 66.4 kg
[~2017-05-25 12:09] MED LIST changes: +IBUP-1114 PO; +PRENTAB9 PO
[2017-05-25 13:53] LABS: BASO % 0.7 % (0.0-1.0); EOS # 0.1 10^3/uL (0.0-0.50); EOS % 2.3 % (0.0-3.0); IMMATURE GRANULOCYTE % 0.2 % (0-0); LYMPH # 2.2 10^3/uL (1.5-6.5); MEAN CORPUSCULAR HEMOGLOBIN 29.2 pg (27.0-33.0); MEAN CORPUSCULAR HGB CONC 33.4 g/dl (32.0-36.5); MEAN CORPUSCULAR VOLUME 87.4 fl (80.0-96.0); MONO # 0.4 10^3/uL (0.0-0.8); NEUTROPHILS # 3.2 10^3/uL (1.8-7.7); NEUTROPHILS % 53.8 % (36.0-66.0); PLATELET COUNT, AUTOMATED 259 10^3/uL (150-450); RED CELL DISTRIBUTION WIDTH 13.6 % (11.5-14.5)
[2017-05-25 14:13] LABS: ANION GAP 5 MEQ/L (8-16); BLOOD UREA NITROGEN 10 MG/DL (7-18); CALCIUM LEVEL 8.9 MG/DL (8.5-10.1); CARBON DIOXIDE LEVEL 30 MEQ/L (21-32); CHLORIDE LEVEL 105 MEQ/L (98-107); CREATININE FOR GFR 0.51 MG/DL (0.55-1.02); GLOMERULAR FILTRATION RATE > 60.0 (>60); GLUCOSE, FASTING 85 MG/DL (70-105); POTASSIUM SERUM 3.6 MEQ/L (3.5-5.1); SODIUM LEVEL 140 MEQ/L (136-145)
--- NOTE | 2017-05-25 14:36 | REP ---
Clinical: 6 weeks with pelvic pain and vaginal bleeding. Technique: Transabdominal pelvic ultrasound followed by transvaginal examination for better evaluation of the endometrium and adnexa with color Doppler evaluation of the ovaries. Findings: Bladder is unremarkable and measures 6.6 x 4.5 x 5.2 cm. Normal anteverted uterus measures 9.7 x 5.1 x 6.6 cm . The endometrial complex measures 6.7 mm thickness and a small amount of hemorrhagic debris is suggested. No discrete uterine or endometrial abnormalities are appreciated. Bilateral ovaries are normal in appearance and vascularity without evidence for torsion. Right ovary measures 3.4 x 1.9 x 2.8 cm ; R I = 0.44 . Left ovary measures 3.1 x 2.2 x 2.1 cm ; R I = 0.47 . No pelvic free fluid or adnexal mass lesion . Impression: Small amount of hemorrhagic debris in the endocervical canal. Ovaries are normal without torsion. Signed by Luis A Paniagua MD 05/25/2017 02:28 P
[2017-05-25 15:28] VITALS: BP 100/55
== END 2017-05-25 15:41 | disposition home or self-care (01) ==
LOC: M ED 12:09
DX: N93.9 Abnormal uterine and vaginal bleeding, unspecified (principal); F31.9 Bipolar disorder, unspecified; F41.9 Anxiety disorder, unspecified; R01.1 Cardiac murmur, unspecified; F17.210 Nicotine dependence, cigarettes, uncomplicated

== ENCOUNTER → 2017-06-02 | Outpatient (REF) | payer OTHER ==
[~2017-06-02] MED LIST changes: +EXCETAB80 PO; +MEDR1VL IM; +SUMA50TA2 PO
[2017-06-02 16:39] LABS: ALBUMIN 4.1 GM/DL (3.2-5.2); ALBUMIN/GLOBULIN RATIO 1.11 (1.00-1.93); ALKALINE PHOSPHATASE 79 U/L (45-117); ALT/SGPT 121 U/L (12-78); ANION GAP 7 MEQ/L (8-16); AST/SGOT 74 U/L (7-37); BILIRUBIN,TOTAL 0.5 MG/DL (0.2-1.0); BLOOD UREA NITROGEN 14 MG/DL (7-18); CARBON DIOXIDE LEVEL 26 MEQ/L (21-32); CHLORIDE LEVEL 107 MEQ/L (98-107); GLOMERULAR FILTRATION RATE > 60.0 (>60); GLUCOSE, FASTING 76 MG/DL (70-105); POTASSIUM SERUM 4.2 MEQ/L (3.5-5.1); SODIUM LEVEL 140 MEQ/L (136-145); TOTAL PROTEIN 7.8 GM/DL (6.4-8.2)
[2017-06-02 18:56] LABS: BASO % 0.6 % (0.0-1.0); EOS # 0.2 10^3/uL (0.0-0.50); IMMATURE GRANULOCYTE % 0.2 % (0-0); LYMPH # 2.5 10^3/uL (1.5-6.5); LYMPH % 47.4 % (24.0-44.0); MEAN CORPUSCULAR HEMOGLOBIN 28.5 pg (27.0-33.0); MEAN CORPUSCULAR HGB CONC 32.2 g/dl (32.0-36.5); MEAN CORPUSCULAR VOLUME 88.5 fl (80.0-96.0); MONO # 0.4 10^3/uL (0.0-0.8); MONO % 8.3 % (0.0-5.0); NEUTROPHILS # 2.2 10^3/uL (1.8-7.7); NEUTROPHILS % 40.5 % (36.0-66.0); PLATELET COUNT, AUTOMATED 306 10^3/uL (150-450); WHITE BLOOD COUNT 5.3 10^3/uL (4.0-10.0)
[2017-06-05 14:21] LABS: HEPATITIS C QUANTITATION 177290 IU/mL (.)
== END ==
LOC: M SFHCPLAZ 12:46
PROVIDERS: ATTEND Internal Medicine Infectious Disease
DX: B19.20 Unspecified viral hepatitis C without hepatic coma (principal)

== ENCOUNTER 2017-06-03 18:45 | Emergency (ER) | payer OTHER ==
[~2017-06-03] VITALS: Ht 154.9 cm; Wt 64.1 kg
[~2017-06-03 18:45] MED LIST changes: -EXCETAB80 PO; -MEDR1VL IM; -SUMA50TA2 PO
[2017-06-03] MEDS ORDERED: MEDR1VL IM (18:53)
[2017-06-03] MEDS ORDERED: EXCETAB80 PO (18:53)
[2017-06-03] MEDS ORDERED: SUMAtriptan SUCCINATE 6 MG/0.5 ML VIAL SC ONE (20:15)
[2017-06-03 21:12] VITALS: BP 111/61
[2017-06-03] MEDS ORDERED: SUMA50TA2 PO (21:12)
== END 2017-06-03 21:20 | disposition home or self-care (01) ==
LOC: M ED 18:45
DX: G43.909 Migraine, unspecified, not intractable, without status migrainosus (principal); F17.210 Nicotine dependence, cigarettes, uncomplicated; F41.9 Anxiety disorder, unspecified; F31.9 Bipolar disorder, unspecified; Z79.3 Long term (current) use of hormonal contraceptives; Z87.09 Personal history of other diseases of the respiratory system

== ENCOUNTER → 2017-07-14 | Outpatient (REF) | payer OTHER ==
[2017-07-14 15:44] LABS: BASO % 0.6 % (0.0-1.0); EOS # 0.2 10^3/uL (0.0-0.50); EOS % 3.3 % (0.0-3.0); HEMATOCRIT 34.1 % (36.0-47.0); HEMOGLOBIN 11.1 g/dl (12.0-16.0); IMMATURE GRANULOCYTE % 0.1 % (0-0); LYMPH # 2.8 10^3/uL (1.5-6.5); LYMPH % 39.6 % (24.0-44.0); MEAN CORPUSCULAR HEMOGLOBIN 27.9 pg (27.0-33.0); MEAN CORPUSCULAR HGB CONC 32.6 g/dl (32.0-36.5); MEAN CORPUSCULAR VOLUME 85.7 fl (80.0-96.0); MONO # 0.6 10^3/uL (0.0-0.8); MONO % 8.4 % (0.0-5.0); NEUTROPHILS # 3.4 10^3/uL (1.8-7.7); PLATELET COUNT, AUTOMATED 278 10^3/uL (150-450); RED BLOOD COUNT 3.98 10^6/uL (4.00-5.40); RED CELL DISTRIBUTION WIDTH 12.5 % (11.5-14.5)
[2017-07-14 15:48] LABS: ALBUMIN/GLOBULIN RATIO 1.25 (1.00-1.93); ALKALINE PHOSPHATASE 80 U/L (45-117); ALT/SGPT 90 U/L (12-78); AST/SGOT 43 U/L (7-37); BILIRUBIN,DIRECT < 0.1 MG/DL (0.0-0.2); BILIRUBIN,TOTAL 0.2 MG/DL (0.2-1.0); TOTAL PROTEIN 7.2 GM/DL (6.4-8.2)
[2017-07-17 10:14] LABS: HEPATITIS C QUANTITATION HCV Not Detected IU/mL (.)
== END ==
LOC: M SFHCPLAZ 13:14
DX: B19.20 Unspecified viral hepatitis C without hepatic coma (principal)
CPT/HCPCS: 36415

== ENCOUNTER 2017-08-03 16:04 | Emergency (ER) | payer OTHER ==
[2017-08-03 17:33] LABS: INFLUENZA A AMPLIFICATION NEGATIVE (NEGATIVE); INFLUENZA B AMPLIFICATION NEGATIVE (NEGATIVE)
== END 2017-08-03 18:06 | disposition home or self-care (01) ==
LOC: M ED 16:04
DX: J06.9 Acute upper respiratory infection, unspecified (principal); B18.2 Chronic viral hepatitis C; F31.9 Bipolar disorder, unspecified; F41.9 Anxiety disorder, unspecified; F17.210 Nicotine dependence, cigarettes, uncomplicated; Z79.3 Long term (current) use of hormonal contraceptives; Z98.890 Other specified postprocedural states; Z86.79 Personal history of other diseases of the circulatory system
CPT/HCPCS: 87502

== ENCOUNTER → 2017-11-11 | Outpatient (REF) | payer OTHER ==
[2017-11-11 15:58] LABS: BASO % 0.4 % (0.0-1.0); EOS # 0.2 10^3/uL (0.0-0.50); EOS % 3.4 % (0.0-3.0); HEMATOCRIT 34.9 % (36.0-47.0); HEMOGLOBIN 11.4 g/dl (12.0-15.5); IMMATURE GRANULOCYTE % 0.2 % (0-3.0); LYMPH # 2.3 10^3/uL (1.5-6.5); LYMPH % 43.5 % (24.0-44.0); MEAN CORPUSCULAR HEMOGLOBIN 27.3 pg (27.0-33.0); MEAN CORPUSCULAR HGB CONC 32.7 g/dl (32.0-36.5); MEAN CORPUSCULAR VOLUME 83.7 fl (80.0-96.0); MONO # 0.5 10^3/uL (0.0-0.8); MONO % 8.4 % (0.0-5.0); NEUTROPHILS # 2.4 10^3/uL (1.8-7.7); NEUTROPHILS % 44.1 % (36.0-66.0); PLATELET COUNT, AUTOMATED 252 10^3/uL (150-450); RED BLOOD COUNT 4.17 10^6/uL (4.00-5.40); RED CELL DISTRIBUTION WIDTH 14.6 % (11.5-14.5); WHITE BLOOD COUNT 5.4 10^3/uL (4.0-10.0)
[2017-11-11 16:00] LABS: ALBUMIN 3.7 GM/DL (3.2-5.2); ALBUMIN/GLOBULIN RATIO 1.03 (1.00-1.93); ALKALINE PHOSPHATASE 71 U/L (45-117); ALT/SGPT 19 U/L (12-78); AST/SGOT 14 U/L (7-37); BILIRUBIN,DIRECT < 0.1 MG/DL (0.0-0.2); BILIRUBIN,TOTAL 0.4 MG/DL (0.2-1.0); TOTAL PROTEIN 7.3 GM/DL (6.4-8.2)
== END ==
LOC: M SFHCPLAZ 13:03
DX: B18.2 Chronic viral hepatitis C (principal)
CPT/HCPCS: 80076

== ENCOUNTER 2018-01-13 04:22 | Emergency (ER) | payer OTHER ==
[2018-01-13 05:07] LABS: BASO % 0.4 % (0.0-1.0); EOS # 0.1 10^3/uL (0.0-0.50); EOS % 1.7 % (0.0-3.0); HEMATOCRIT 31.9 % (36.0-47.0); HEMOGLOBIN 10.1 g/dl (12.0-15.5); IMMATURE GRANULOCYTE % 0.4 % (0-3.0); LYMPH % 28.2 % (24.0-44.0); MEAN CORPUSCULAR HGB CONC 31.7 g/dl (32.0-36.5); MEAN CORPUSCULAR VOLUME 82.2 fl (80.0-96.0); MONO # 0.5 10^3/uL (0.0-0.8); MONO % 7.4 % (0.0-5.0); NEUTROPHILS # 4.3 10^3/uL (1.8-7.7); NEUTROPHILS % 61.9 % (36.0-66.0); PLATELET COUNT, AUTOMATED 229 10^3/uL (150-450); RED BLOOD COUNT 3.88 10^6/uL (4.00-5.40)
[2018-01-13 05:21] LABS: CONTROL LINE HCG INT CTR LINE PRESENT; HCG, SERUM QUALITATIVE NEGATIVE (NEGATIVE)
[2018-01-13 05:29] LABS: ACETAMINOPHEN LEVEL < 2.0 UG/ML (10.0-30.0); ALBUMIN 3.2 GM/DL (3.2-5.2); ALBUMIN/GLOBULIN RATIO 0.97 (1.00-1.93); ALKALINE PHOSPHATASE 65 U/L (45-117); ALT/SGPT 94 U/L (12-78); ANION GAP 8 MEQ/L (8-16); AST/SGOT 60 U/L (7-37); BILIRUBIN,DIRECT 0.1 MG/DL (0.0-0.2); BILIRUBIN,TOTAL 0.3 MG/DL (0.2-1.0); BLOOD UREA NITROGEN 11 MG/DL (7-18); CALCIUM LEVEL 8.5 MG/DL (8.5-10.1); CARBON DIOXIDE LEVEL 26 MEQ/L (21-32); CHLORIDE LEVEL 110 MEQ/L (98-107); CPK CREATINE PHOSPHOKINASE 106 U/L (26-192); CREATININE FOR GFR 0.72 MG/DL (0.55-1.30); ETHYL ALCOHOL (ETHANOL) 0.003 % (0.000-0.010); GLOMERULAR FILTRATION RATE > 60.0 (>60); GLUCOSE, FASTING 151 MG/DL (70-100); SALICYLATE LEVEL < 1.7 MG/DL (5.0-30.0); SODIUM LEVEL 144 MEQ/L (136-145); TOTAL PROTEIN 6.5 GM/DL (6.4-8.2)
[2018-01-13] MEDS: NS 1,000 ML IV (07:31)
[2018-01-13] MEDS: POTASSIUM CHLORIDE 10 MEQ SR TABLET PO (08:21)
[2018-01-13 10:16] LABS: AMPHETAMINES LEVEL URINE NEGATIVE (NEGATIVE); BARBITURATES URINE NEGATIVE (NEGATIVE); BENZODIAZEPINES URINE NEGATIVE (NEGATIVE); CANNABINOIDS URINE NEGATIVE (NEGATIVE); COCAINE METABOLITE URINE POSITIVE (NEGATIVE); METHADONE URINE NEGATIVE (NEGATIVE); OPIATES URINE POSITIVE (NEGATIVE); PHENCYCLIDINE URINE NEGATIVE (NEGATIVE)
== END 2018-01-13 12:37 | disposition home or self-care (01) ==
LOC: M ED 04:22
DX: T40.1X1A Poisoning by heroin, accidental (unintentional), initial encounter (principal); X58.XXXA Exposure to other specified factors, initial encounter; Y92.89 Other specified places as the place of occurrence of the external cause; Z79.3 Long term (current) use of hormonal contraceptives; F17.210 Nicotine dependence, cigarettes, uncomplicated; F11.20 Opioid dependence, uncomplicated
CPT/HCPCS: 93005

== ENCOUNTER → 2018-04-06 | Outpatient (CLI) | payer OTHER ==
[2018-04-06 13:50] LABS: HEMATOCRIT 35.5 % (36.0-47.0); HEMOGLOBIN 11.1 g/dl (12.0-15.5); MEAN CORPUSCULAR HEMOGLOBIN 25.9 pg (27.0-33.0); MEAN CORPUSCULAR HGB CONC 31.3 g/dl (32.0-36.5); MEAN CORPUSCULAR VOLUME 82.8 fl (80.0-96.0); PLATELET COUNT, AUTOMATED 280 10^3/uL (150-450); RED BLOOD COUNT 4.29 10^6/uL (4.00-5.40); RED CELL DISTRIBUTION WIDTH 14.7 % (11.5-14.5); WHITE BLOOD COUNT 6.6 10^3/uL (4.0-10.0)
[2018-04-06 14:28] LABS: ALBUMIN 3.9 GM/DL (3.2-5.2); ALBUMIN/GLOBULIN RATIO 1.22 (1.00-1.93); ALKALINE PHOSPHATASE 77 U/L (45-117); ALT/SGPT 73 U/L (12-78); ANION GAP 7 MEQ/L (8-16); AST/SGOT 34 U/L (7-37); BILIRUBIN,TOTAL 0.4 MG/DL (0.2-1.0); BLOOD UREA NITROGEN 11 MG/DL (7-18); CALCIUM LEVEL 8.9 MG/DL (8.5-10.1); CARBON DIOXIDE LEVEL 27 MEQ/L (21-32); CHLORIDE LEVEL 106 MEQ/L (98-107); CREATININE FOR GFR 0.56 MG/DL (0.55-1.30); GLOMERULAR FILTRATION RATE > 60.0 (>60); GLUCOSE, FASTING 77 MG/DL (70-100); POTASSIUM SERUM 4.2 MEQ/L (3.5-5.1); SODIUM LEVEL 140 MEQ/L (136-145); THYROID STIMULATING HORMONE 0.946 uIU/ML (0.358-3.740); TOTAL PROTEIN 7.1 GM/DL (6.4-8.2)
== END ==
LOC: M LAB 12:43
DX: F11.20 Opioid dependence, uncomplicated (principal)
CPT/HCPCS: 84443

== ENCOUNTER → 2018-05-08 | Outpatient (REF) | payer OTHER ==
[2018-05-08 14:05] LABS: HEMATOCRIT 34.4 % (36.0-47.0); HEMOGLOBIN 11.3 g/dl (12.0-15.5); MEAN CORPUSCULAR HGB CONC 32.8 g/dl (32.0-36.5); MEAN CORPUSCULAR VOLUME 82.1 fl (80.0-96.0); PLATELET COUNT, AUTOMATED 231 10^3/uL (150-450); RED BLOOD COUNT 4.19 10^6/uL (4.00-5.40); RED CELL DISTRIBUTION WIDTH 15.2 % (11.5-14.5); WHITE BLOOD COUNT 5.6 10^3/uL (4.0-10.0)
[2018-05-08 14:52] LABS: HCG, SERUM QUANTITATIVE 67227 MIU/ML
[2018-05-08 14:56] LABS: RUBELLA IgG QUALITATIVE IMMUNE (IMMUNE)
[2018-05-08 14:57] LABS: HBsAg Prenatal NEGATIVE (NEGATIVE)
[2018-05-08 15:25] LABS: HIV 1&2 SCREEN CENTAUR NEGATIVE (NEGATIVE)
[2018-05-08 15:26] LABS: HEPATITIS C VIRUS ABY INDEX > 11.0 INDEX (<0.8)
[2018-05-14 11:06] LABS: SUMMARY SEE SEPARATE REPORT
== END ==
LOC: M LAB REF 13:20
DX: O36.80X0 Pregnancy with inconclusive fetal viability, not applicable or unspecified (principal); Z32.01 Encounter for pregnancy test, result positive

== ENCOUNTER → 2018-07-17 | Outpatient (CLI) | payer OTHER ==
[~2018-07-17] MED LIST changes: +EXCETAB80 PO; +MAPA500T2 PO; +MAVY1TAB PO; +MEDR1VL IM; +PREN1CHW6 PO; +PYRI25TA2 PO; +SUMA50TA2 PO; +UNIS25TA3 PO
--- NOTE | 2018-07-17 15:50 | REP ---
Obstetric sonogram: History: Supervision of for anatomy. Findings: Scanning through the gravid uterus demonstrates a viable single intrauterine gestation in a breech lie. motion is observed and heart rate is recorded at 157 beats per minute. An anterior left lateral placenta is seen grade 1 without evidence of previa. Amniotic fluid is subjectively normal. Closed cervical length is viewed transabdominally at 2.8 cm. No extrauterine abnormalities observed. No anomaly is seen. anatomic survey is less than complete regarding visualization of the cerebellum and posterior fossa, four-chamber heart and left and right ventricular outflow tract views due to position. The following additional anatomic structures are identified and felt to be unremarkable today: cranium, choroid plexus, cavum, cerebellum posterior fossa, face and profile, lungs, diaphragm, left-sided stomach, abdominal wall cord insertion, three-vessel umbilical cord, kidneys and bladder, spine, upper and lower extremities. Biometry chart: BPD 3.9 cm = 17 weeks 6 days HC 14.5 cm = 17 weeks 5 days AC 13.6 cm = 19 weeks 0 days FL 2.7 cm = 18 weeks 2 days HL 2.6 cm = 18 weeks 2 days HC/AC ratio normal 1.07. Cephalic index normal 0.75. Estimated weight 245 grams, 0 pounds 8 ounces, 69th percentile for 18 weeks 0 days. Impression: Viable single intrauterine gestation at 18 weeks 2 days by today's composite sonographic criteria. JAGDISH by today's sonography December 16, 2018. Less than optimal visualization of the cerebellum and heart due to position. Breech lie. Electronically Signed by Dragan Loo MD 07/17/2018 08:00 P
== END ==
LOC: M RAD 11:59
PROVIDERS: ATTEND Advanced Practice Midwife
DX: Z36.9 Encounter for antenatal screening, unspecified (principal); Z3A.18 18 weeks gestation of pregnancy

== ENCOUNTER 2018-07-27 13:10 | Emergency (ER) | payer OTHER ==
[~2018-07-27] VITALS: Ht 154.9 cm; Wt 67.3 kg
[2018-07-27 16:39] LABS: BASO % 0.2 % (0.0-1.0); EOS % 0.2 % (0.0-3.0); HEMATOCRIT 32.8 % (36.0-47.0); HEMOGLOBIN 10.8 g/dl (12.0-15.5); LYMPH # 1.3 10^3/uL (1.5-6.5); LYMPH % 30.5 % (24.0-44.0); MEAN CORPUSCULAR HEMOGLOBIN 27.7 pg (27.0-33.0); MEAN CORPUSCULAR HGB CONC 32.9 g/dl (32.0-36.5); MEAN CORPUSCULAR VOLUME 84.1 fl (80.0-96.0); MONO # 0.5 10^3/uL (0.0-0.8); MONO % 11.4 % (0.0-5.0); NEUTROPHILS # 2.4 10^3/uL (1.8-7.7); NEUTROPHILS % 56.8 % (36.0-66.0); PLATELET COUNT, AUTOMATED 172 10^3/uL (150-450); WHITE BLOOD COUNT 4.3 10^3/uL (4.0-10.0)
[2018-07-27 16:51] LABS: INR 0.94; PROTHROMBIN TIME 12.6 SECONDS (12.1-14.4)
[2018-07-27 17:08] LABS: BLOOD UREA NITROGEN 5 MG/DL (7-18); CALCIUM LEVEL 8.4 MG/DL (8.5-10.1); CARBON DIOXIDE LEVEL 25 MEQ/L (21-32); CHLORIDE LEVEL 104 MEQ/L (98-107); CK-MB VALUE MASS < 1.0 NG/ML (<3.6); CPK CREATINE PHOSPHOKINASE 42 U/L (26-192); CREATININE FOR GFR 0.33 MG/DL (0.55-1.30); GLOMERULAR FILTRATION RATE > 60.0 (>60); GLUCOSE, FASTING 78 MG/DL (70-100); MB/CK RELATIVE INDEX 2.38 (< OR =4); POTASSIUM SERUM 3.5 MEQ/L (3.5-5.1); SODIUM LEVEL 137 MEQ/L (136-145); THYROID STIMULATING HORMONE 0.561 uIU/ML (0.358-3.740); TROPONIN I < 0.02 NG/ML (< 0.10)
[2018-07-27 17:48] VITALS: BP 99/51
--- NOTE | 2018-07-28 21:12 | ECGEPIP ---
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
== END 2018-07-27 17:49 | disposition home or self-care (01) ==
LOC: M ED 13:10
DX: O26.812 Pregnancy related exhaustion and fatigue, second trimester (principal); Z33.1 Pregnant state, incidental; O99.419 Diseases of the circulatory system complicating pregnancy, unspecified trimester; O98.419 Viral hepatitis complicating pregnancy, unspecified trimester; O99.330 Smoking (tobacco) complicating pregnancy, unspecified trimester; Z79.899 Other long term (current) drug therapy

== ENCOUNTER → 2018-08-04 | Outpatient (CLI) | payer OTHER ==
--- NOTE | 2018-08-05 05:09 | REP ---
Clinical: Anatomical evaluation. Comparison: 07/17/2018 . Findings: Examination demonstrates a single live intrauterine in cephalic presentation. motion is identified by technologist. Placenta is noted anterior and grade grade 1 without evidence for placenta previa or abruption. Amniotic fluid volume is normal. Cervix measures 3.3 cm in length and appears closed. No evidence for nuchal cord. Gestational age by LMP 20 weeks 4 days with JAGDISH 12/18/2018 . Gestational age by current measurements 20 weeks 3-day with JAGDISH 12/19/2018 . FHR equals 160 beats per minute. Estimated weight 351 grams ( 39th percentile). Anatomical assessment demonstrates normal structures including cranium, choroid plexus, cavum, cerebellum/posterior fossa, facial features, lungs, four-chamber heart/ventricular outflow tracts, diaphragm, stomach, cord insertion/three-vessel cord, kidneys/bladder, spine, and extremities. Impression: 1. Single live intrauterine in cephalic presentation demonstrating appropriate interval growth. Anatomical assessment is complete and normal. No gross abnormalities are identified. 2. Incidental small calcification inseparable from and between in the gallbladder and adjacent liver of uncertain clinical significance. Consider reevaluation on ultrasound. Electronically Signed by Luis A Paniagua MD 08/05/2018 05:00 A
== END ==
LOC: M RAD 14:30
PROVIDERS: ATTEND Specialist
DX: O98.412 Viral hepatitis complicating pregnancy, second trimester (principal); Z3A.20 20 weeks gestation of pregnancy

== ENCOUNTER → 2018-11-18 | Outpatient (REF) | payer OTHER, MEDICAID ==
[~2018-11-18] MED LIST changes: -/ACETCOD2T PO; +ACET1TAB15 PO; -ACET50TA PO; +COLA100C5 PO; +MAPA500T17 PO
== END ==
LOC: M LAB REF 17:27
PROVIDERS: ATTEND Advanced Practice Midwife
DX: O99.89 Other specified diseases and conditions complicating pregnancy, childbirth and the puerperium (principal); Z3A.35 35 weeks gestation of pregnancy

== ENCOUNTER 2018-11-20 21:22 | Inpatient (IN) | payer OTHER, MEDICAID ==
[~2018-11-20] VITALS: Ht 154.9 cm; Wt 77.1 kg
[~2018-11-20 21:22] MED LIST changes: -COLA100C5 PO
[2018-11-20] MEDS ORDERED: LACTATED RINGER'S 1000 ML IV STA (22:09)
[2018-11-20] MEDS ORDERED: OXYTOCIN DRIP 30 UNITS in APPROPRIATE DILUENT 1 EA IV SCH (22:15)
--- NOTE | 2018-11-20 22:31 | HPEPDOC ---
Obstetrical History & Physical General Date of Admission November 20, 2018 at 22:09 History of Present Illness Chief Complaint: LOF, pre-term Information Provided By: Patient Age: 23 : 3 Term: 2 Pre-term: 0 Abortions: 0 Livin Care Care: Good Care Dating Final EDC: Dec 19, 2018 Final EDC by: LMP EGA at Admission: 35 (+6) Antepartum Course Height (inches): 61 Pre- weight (lbs.): 148 Admission Weight (lbs.): 170 Past Medical History Past Obstetrical History #1: Past Obstetrical History: Primgravida (2013) Type of Delivery: Spontaneous Vaginal Del. Sex of Infant: Male (9#5) Complications: No Past Obstetrical History #2: Past Obstetrical History: Multigravida (2017) Type of Delivery: Spontaneous Vaginal Del. Sex of Infant: Male (8#4) Complications: No DIGITAL MEDIA COORDINATOR History: No pertinent history Past Medical History Medical History Hepatitis C, treated Surgical History: Other (adenoids) Family History Significant Family History: Diabetes Social History Marital Status: Single Psychosocial History: No pertinent psych hx * Smoker: current smoker Alcohol: Denies Drugs: other (history heroin use, clean prior to ) Imunizations Tdap status: current Allergies Coded Allergies: MS - No Known Drug Allergy (Verified Allergy, Unknown, 03/17/17) Medications Scheduled Doxylamine Succinate (Unisom Sleep Aid) 25 Mg Tab, 25 MG PO QPM Glecaprevir/Pibrentasvir (Mavyret 100-40 mg Tablet) 1 Tab Tab, 1 TAB PO DAILY Medroxyprogesterone Acetate (Depo-Provera) 1,000 Mg/2.5 Ml Soln, 1,000 MG IM Q3M Vit37/Iron/Folic Acid (Prenata Chewable Tablet) 1 Chw Chw, 1 TAB PO DAILY Pyridoxine HCl (Vitamin B6) (Vitamin B-6) 25 Mg Tab, 1 TAB PO QHS Sumatriptan Succinate (Sumatriptan Succinate) 50 Mg Tab, 50 MG PO ASDIRECTED A single dose 50 mg (taken with fluids). If a satisfactory response has not been obtained at 2 hours, one more. Scheduled PRN Acetaminophen/Aspirin/Caffein (Excedrin Migraine 250-250-65 mg) 1 Tab Tab, 2 TAB PO for PAIN Physical Examination Physical Examination GENERAL: Alert and oriented times three. BREAST: . ABDOMEN: Gravid and non-tender to touch. FETUS: Is vertex (VTX) by sterile vaginal examination (SVE), fetus is vertex (VTX) by Doron. Confirmed by bedside sono HEART RATE: Regular rate and rhythm. LUNGS: Clear to auscultation (CTA). EXTREMITIES: No edema. No clonus. Deep tendon reflexes (DTRs) + 2. Pertinent Laboratoy Data Blood Type: A+ RBC Antibody Screen: Negative HIV: Negative Hepatitis B: Negative Hepatitis C: Positive Rapid Plasma Reagin: Nonreactive Rubella: Immune Chlamydia/Gonorrhea: Negative Group B Streptococcus: Negative Glucose Tolerance Test: 103 Anatomy Ultrasound Ultrasound Date: Jul 17, 2018 Placenta Location: Anterior Normal Anatomy: Yes (incidental note calcification between GB and liver) Placenta Previa: No Estimated Weight (grams): 245 Other Ultrasounds 06/03/18 dating JAGDISH 12/19/18 11w4d Steroid Therapy Steroid Therapy: No Vaginal Examination Dilation: 2cm Effacement: 50% Station: -3 Cervical Consistency: Medium Cervical Position: Posterior Presentation: Cephalic presentation (confirmed by bedside sono) Assessment Heart Rate (FHR): 145 Variability: Moderate Accelerations: Positive Decelerations: None Heart Patterns: Tachycardia (upon initial assessment then resolved) Tocometer Contractions: Yes Frequency: irregular Strength: palpated as mild Multi-drug resistant Organism: No history of MDRO Assessment/Plan Assessment Anne-Marie is a 23-year-old (G)3 para (P)2-0-0-2 at 35+6 weeks by 11-week ultrasound. Presents to Labor and Delivery (L&D) with reports of LOF 2030, clear. Reports backache but no regular UC or bleeding. Fetus is active. Clear fluid draining PV, + nitrazine, + fern Plan Admit and orient. Passenger Screener and consent. Diet: clear liquids. Group B Streptococcus (GBS) negative. Labs and intravenous (IV) per unit protocol. Counseled on Pitocin and induction of labor (IOL). Lactated Ringers (LR): Bolus 500 mL, then at 125 mL/hr. Planning epidural for labor coping Anticipate normal spontaneous delivery (). C-S as appropriate. Kathryn Streeter CNM November 20, 2018 22:31
[2018-11-20] MEDS: LR 1,000 ML IV SCH (22:38)
[2018-11-20 22:52] LABS: HEMOGLOBIN 8.8 g/dl (12.0-15.5); MEAN CORPUSCULAR HEMOGLOBIN 26.3 pg (27.0-33.0); MEAN CORPUSCULAR HGB CONC 32.6 g/dl (32.0-36.5); MEAN CORPUSCULAR VOLUME 80.6 fl (80.0-96.0); PLATELET COUNT, AUTOMATED 321 10^3/uL (150-450); RED BLOOD COUNT 3.35 10^6/uL (4.00-5.40); WHITE BLOOD COUNT 11.3 10^3/uL (4.0-10.0)
[2018-11-20 23:02] LABS: AMORPHOUS SEDIMENT SMALL (NEGATIVE); APPEARANCE, URINE CLOUDY (CLEAR); BACTERIA, URINE AUTO 1+ (NEGATIVE); BILIRUBIN, URINE AUTO NEGATIVE (NEGATIVE); BLOOD, URINE BLOOD NEGATIVE (NEGATIVE); COLOR, URINE YELLOW (YELLOW); GLUCOSE, URINE (UA) AUTO NEGATIVE (NEGATIVE); KETONE, URINE AUTO NEGATIVE (NEGATIVE); LEUKOCYTE ESTERASE, URINE AUTO 1+ (NEGATIVE); MUCUS, URINE SMALL (NEGATIVE); NITRITE, URINE AUTO NEGATIVE (NEGATIVE); PROTEIN, URINE AUTO NEGATIVE (NEGATIVE); RBC, URINE AUTO 3 /HPF (0-3); SPECIFIC GRAVITY URINE AUTO 1.017 (1.002-1.035); SQUAMOUS EPITHELIAL CELL UR AU 2 /HPF (0-6); WBC, URINE AUTO 16 /HPF (0-3)
[2018-11-20 23:14] LABS: AMPHETAMINES URINE REFLEX NEGATIVE (NEGATIVE); BARBITURATES URINE REFLEX NEGATIVE (NEGATIVE); BENZODIAZEPINES URINE REFLEX NEGATIVE (NEGATIVE); CANNABINOIDS URINE REFLEX NEGATIVE (NEGATIVE); COCAINE METABOLITE URINE REFLE NEGATIVE (NEGATIVE); METHADONE URINE REFLEX NEGATIVE (NEGATIVE); OPIATES URINE REFLEX NEGATIVE (NEGATIVE); PHENCYCLIDINE URINE REFLEX NEGATIVE (NEGATIVE)
[2018-11-21] VITALS (49 sets, daily range): BP systolic 83–117; BP diastolic 49–64
[2018-11-21] MEDS: LR 1,000 ML IV SCH ×2 (02:51→08:00)
--- NOTE | 2018-11-21 07:33 | IPNPDOC ---
Text Note Date of Service The patient was seen on 11/21/18. NOTE Uncomfortable. Requesting pain management Cat I tracing UC 3-5 minutes Pitocin @ 10mu SVE /-2 Stadol/pheneragan ordered. Pt is considering epidural later VS,Fishbone, I+O VS, Fishbone, I+O Laboratory Tests 11/20/18 22:43 Red Blood Count 3.35 L, Mean Corpuscular Volume 80.6, Mean Corpuscular Hemoglobin 26.3 L, Mean Corpuscular Hemoglobin Concent 32.6, Red Cell Distribution Width 14.5 Vital Signs Date Time Temp Pulse Resp B/P (MAP) Pulse Ox O2 Delivery O2 Flow Rate FiO2 11/21/18 07:11 81 102/55 (71) 11/21/18 07:10 98.4 20 Kathryn Streeter CNM November 21, 2018 07:33
[2018-11-21] MEDS ORDERED: BUTORPHANOL 2 MG/ML INJ (J0595) IV ONE (07:45)
[2018-11-21] MEDS ORDERED: PROMETHAZINE INJ 25 MG/ML VIAL (J2550) IV ONE (07:45)
[2018-11-21] MEDS ORDERED: FENTANYL 2MCG/ML ROPIVACAINE 0.2% IN 0.9% NACL 100ML IVBAG As Ordered ONE (10:02)
[2018-11-21] MEDS ORDERED: EPIDURAL/PCA KEYS XX PRN (10:30)
[2018-11-21] MEDS ORDERED: FENTANYL/ROPIVACAINE/NACL BAG 100 ML EPIDURAL SCH (10:30)
[2018-11-21] MEDS ORDERED: diphenhydrAMINE INJ 50MG/ML VIAL (J1200) IV PRN (10:30)
[2018-11-21] MEDS ORDERED: ePHEDrine SULFATE 25 MG/5 ML(5MG/ML) SYRINGE IV PRN (10:30)
[2018-11-21] MEDS ORDERED: NALOXONE INJ 0.4 MG/1 ML VIAL (J2310) IV PRN (10:30)
[2018-11-21] MEDS ORDERED: REFRIGERATOR IV KEYS XX PRN (10:30)
[2018-11-21] MEDS ORDERED: ONDANSETRON 4MG/2ML VIAL (J2405) IV PRN (10:30)
[2018-11-21] MEDS ORDERED: EPIDURAL COMMENT XX SCH (10:30)
[2018-11-21] MEDS ORDERED: LACTATED RINGER'S 1000 ML IV PRN (10:30)
[2018-11-21] MEDS ORDERED: RHOGAM 300 MCG (1500 IU) INJ (J2790) IM SCH (14:15)
[2018-11-21] MEDS ORDERED: MEASLES,MUMPS,RUBELLA VACCINE INJ (MMR-II) (90707) SC SCH (14:15)
[2018-11-21] MEDS ORDERED: ACETAMINOPHEN 500 MG TAB PO PRN (14:15)
[2018-11-21] MEDS ORDERED: MOM 30ML SUSPENSION UDC PO PRN (14:15)
[2018-11-21] MEDS ORDERED: METOCLOPRAMIDE INJ 10MG/2ML VIAL (J2765) IV PRN (14:15)
[2018-11-21] MEDS ORDERED: DIBUCAINE 1% OINTMENT 30GM TOP PRN (14:15)
[2018-11-21] MEDS ORDERED: DOCUSATE SODIUM 100 MG CAP PO PRN (14:15)
[2018-11-21] MEDS ORDERED: ACETAMINOPHEN TAB 650MG DOSE (2X325MG) PO PRN (14:15)
[2018-11-21] MEDS ORDERED: ANUSOL HC CREAM 30GM TOP PRN (14:15)
[2018-11-21] MEDS ORDERED: IBUPROFEN 800 MG TAB PO PRN (14:15)
[2018-11-21] MEDS ORDERED: IBUPROFEN 600 MG TAB PO PRN (14:15)
[2018-11-21] MEDS ORDERED: OXYTOCIN DRIP 30 UNITS in APPROPRIATE DILUENT 1 EA IV SCH (14:30)
[2018-11-21] MEDS ORDERED: LR 1,000 ML IV ONE (17:30)
[2018-11-21 18:01] LABS: HEMATOCRIT 24.9 % (36.0-47.0); MEAN CORPUSCULAR HEMOGLOBIN 26.3 pg (27.0-33.0); MEAN CORPUSCULAR HGB CONC 32.1 g/dl (32.0-36.5); MEAN CORPUSCULAR VOLUME 81.9 fl (80.0-96.0); PLATELET COUNT, AUTOMATED 268 10^3/uL (150-450); RED BLOOD COUNT 3.04 10^6/uL (4.00-5.40); WHITE BLOOD COUNT 15.9 10^3/uL (4.0-10.0)
[2018-11-22 06:00] VITALS: BP 98/56
[2018-11-22] MEDS ORDERED: PRENATAL VITAMINS CHEWABLE TABLET PO SCH (09:00)
[2018-11-22 10:30] VITALS: BP 99/56
[2018-11-22] MEDS ORDERED: IBUP-1114 PO (11:10)
[2018-11-22] MEDS ORDERED: COLA100C5 PO (11:12)
[2018-11-22] MEDS ORDERED: MOM30SS PO (11:14)
--- NOTE | 2018-11-22 13:01 | DN ---
DATE OF PROCEDURE: 11/21/2018 TIME OF : 1343 GENDER: Female : 8 and 9 WEIGHT: 2500 grams or 5 pounds 8 ounces. LACERATIONS: None. ANESTHESIA: Epidural. ESTIMATED BLOOD LOSS: 300 mL DELIVERY NOTE: On November 21, 2018, at 1343, Mrs. Williamson had a spontaneous vaginal delivery of a live born female infant, Apgars 8 and 9. Weight was 2500 grams, 5 pounds 8 ounces. Head was delivered OA over intact perineum followed by delivery shoulders and corpus. was handed to mom with good cry. Cord was clamped times two and was cut by support person. Placenta was then drained delivered grossly intact. A premixed bag of 500 mL of normal saline with 30 units of pitocin was then bolused along with uterine massage until the uterus was firm. On inspection the cervix was intact, perineum was grossly intact hemostatic. Mom and baby recovered stable condition.
== END 2018-11-22 11:50 | disposition home or self-care (01) | DRG 560 ==
LOC: M LDO 21:22 → M LDI 22:09 → M OBS 11-21 16:26
PROVIDERS: ADMIT Advanced Practice Midwife; ATTEND Obstetrics & Gynecology
PROC: 10E0XZZ Delivery of Products of Conception, External Approach (ICD-10-PCS; principal; 2018-11-21)
DX: O42.013 Preterm premature rupture of membranes, onset of labor within 24 hours of rupture, third trimester (principal); F17.210 Nicotine dependence, cigarettes, uncomplicated; Z3A.36 36 weeks gestation of pregnancy; Z37.0 Single live birth; O99.334 Smoking (tobacco) complicating childbirth

== ENCOUNTER 2019-05-24 17:47 | Emergency (ER) | payer MEDICAID, OTHER ==
[~2019-05-24] VITALS: Ht 154.9 cm; Wt 59.5 kg
[~2019-05-24 17:47] MED LIST changes: +COLA100C5 PO
[2019-05-24] MEDS ORDERED: MUPI2OI TOP (20:49)
[2019-05-24] MEDS ORDERED: KEFL500C17 PO (20:49)
[2019-05-24 21:03] VITALS: BP 130/68
== END 2019-05-24 21:02 | disposition home or self-care (01) ==
LOC: M ED 17:47
DX: L03.211 Cellulitis of face (principal); B18.2 Chronic viral hepatitis C; I51.9 Heart disease, unspecified; F17.200 Nicotine dependence, unspecified, uncomplicated; Z79.899 Other long term (current) drug therapy

== ENCOUNTER 2019-07-19 12:13 | Emergency (ER) | payer OTHER ==
[~2019-07-19] VITALS: Ht 154.9 cm; Wt 57.6 kg
[~2019-07-19 12:13] MED LIST changes: +KEFL500C17 PO; +MUPI2OI TOP
[2019-07-19] MEDS ORDERED: [UNRECOGNIZED DRUG - OTHER] (12:31)
[2019-07-19 12:59] LABS: BASO % 0.5 % (0.0-1.0); EOS # 0.1 10^3/uL (0.0-0.5); EOS % 2.1 % (0.0-3.0); HEMATOCRIT 39.3 % (36.0-47.0); HEMOGLOBIN 11.7 g/dl (12.0-15.5); LYMPH # 2.6 10^3/uL (1.5-5.0); LYMPH % 39.5 % (24.0-44.0); MEAN CORPUSCULAR HEMOGLOBIN 23.9 pg (27.0-33.0); MEAN CORPUSCULAR HGB CONC 29.8 g/dl (32.0-36.5); MEAN CORPUSCULAR VOLUME 80.4 fl (80.0-96.0); MONO # 0.4 10^3/uL (0.0-0.8); MONO % 6.5 % (0.0-5.0); NEUTROPHILS # 3.4 10^3/uL (1.5-8.5); NEUTROPHILS % 51.1 % (36.0-66.0); PLATELET COUNT, AUTOMATED 308 10^3/uL (150-450); RED BLOOD COUNT 4.89 10^6/uL (4.00-5.40); WHITE BLOOD COUNT 6.7 10^3/uL (4.0-10.0)
[2019-07-19] MEDS ORDERED: ACETAMINOPHEN 325 MG TAB PO ONE (13:30)
[2019-07-19 13:42] LABS: BLOOD UREA NITROGEN 13 MG/DL (7-18); CALCIUM LEVEL 8.7 MG/DL (8.5-10.1); CARBON DIOXIDE LEVEL 31 MEQ/L (21-32); CHLORIDE LEVEL 106 MEQ/L (98-107); CREATININE FOR GFR 0.53 MG/DL (0.55-1.30); GLOMERULAR FILTRATION RATE > 60.0 (>60); GLUCOSE, FASTING 71 MG/DL (70-100); HCG, SERUM QUANTITATIVE 1051 MIU/ML; POTASSIUM SERUM 4.2 MEQ/L (3.5-5.1); SODIUM LEVEL 138 MEQ/L (136-145)
[2019-07-19] MEDS ORDERED: KEFL500C17 PO (15:25)
[2019-07-19 15:40] VITALS: BP 105/57
--- NOTE | 2019-07-19 16:25 | REP ---
Pelvic ultrasound including transabdominal, endovaginal and Doppler ultrasound assessment for pelvic pain in a patient with positive test. The patients HCG measures 1051 units. The uterus is retroverted and slightly enlarged measuring 9.2 x 5.8 x 6.7 cm. There is an intrauterine gestational sac, however there is no identifiable pole. The gestational sac measures 4.0 x 1.6 x 4.7 mm for a mean sac diameter of 3.4 mm. This corresponds to a gestational age of 5 weeks 0 days. There is a tiny volume of free fluid in the posterior cul-de-sac. Right ovary: The right ovary measures 3.9 x 2.1 x 2.6 cm and contains a 2.2 cm hypoechoic lesion, possibly an hemorrhagic corpus luteum. Left ovary: The left ovary measures 2.8 x 122.1 cm and is normal size. There is no dominant mass or cyst. The There is vascular flow in both ovaries with the Doppler resistive index of the parenchymal arteries in the right ovary measuring 0.52 and left ovary measuring 0.47. Impression: There is an intrauterine gestational sac without pole as described. The findings are nonspecific and could represent early gestation with the pole not yet visible, spontaneous or ectopic gestation. Follow-up is recommended. Electronically Signed by Georgi Loyd MD 07/19/2019 04:16 P
== END 2019-07-19 15:40 | disposition home or self-care (01) ==
LOC: M ED 12:13
DX: N39.0 Urinary tract infection, site not specified (principal); F31.9 Bipolar disorder, unspecified; F41.9 Anxiety disorder, unspecified; F17.210 Nicotine dependence, cigarettes, uncomplicated; Z86.19 Personal history of other infectious and parasitic diseases

== ENCOUNTER → 2019-07-22 | Outpatient (CLI) | payer OTHER ==
[~2019-07-22] MED LIST changes: +[UNRECOGNIZED DRUG - OTHER]
== END ==
LOC: M LAB 12:22
PROVIDERS: ATTEND Emergency Medicine
DX: R10.2 Pelvic and perineal pain (principal)

== ENCOUNTER → 2019-09-24 | Outpatient (REF) | payer OTHER | LOC: M SFHCWAGY 09:59 | PROVIDERS: ATTEND Advanced Practice Midwife | DX: B18.9 Chronic viral hepatitis, unspecified (principal) ==

== ENCOUNTER → 2019-10-04 | Outpatient (CLI) | payer OTHER ==
[2019-10-04 14:20] LABS: BASO % 0.3 % (0.0-1.0); EOS # 0.1 10^3/uL (0.0-0.5); HEMATOCRIT 30.5 % (36.0-47.0); HEMOGLOBIN 10.1 g/dl (12.0-15.5); LYMPH # 2.1 10^3/uL (1.5-5.0); LYMPH % 32.1 % (24.0-44.0); MEAN CORPUSCULAR HEMOGLOBIN 26.9 pg (27.0-33.0); MEAN CORPUSCULAR HGB CONC 33.1 g/dl (32.0-36.5); MEAN CORPUSCULAR VOLUME 81.3 fl (80.0-96.0); MONO # 0.4 10^3/uL (0.0-0.8); MONO % 5.7 % (0.0-5.0); NEUTROPHILS % 60.6 % (36.0-66.0); PLATELET COUNT, AUTOMATED 290 10^3/uL (150-450); RED BLOOD COUNT 3.75 10^6/uL (4.00-5.40); WHITE BLOOD COUNT 6.7 10^3/uL (4.0-10.0)
[2019-10-04 14:49] LABS: ALT/SGPT 22 U/L (12-78); BILIRUBIN,TOTAL 0.3 MG/DL (0.2-1.0); BLOOD UREA NITROGEN 11 MG/DL (7-18); CALCIUM LEVEL 8.8 MG/DL (8.5-10.1); CARBON DIOXIDE LEVEL 25 MEQ/L (21-32); CHLORIDE LEVEL 107 MEQ/L (98-107); CREATININE FOR GFR 0.53 MG/DL (0.55-1.30); GLOMERULAR FILTRATION RATE > 60.0 (>60); GLUCOSE, FASTING 83 MG/DL (70-100); POTASSIUM SERUM 3.9 MEQ/L (3.5-5.1); SODIUM LEVEL 138 MEQ/L (136-145); TOTAL PROTEIN 6.5 GM/DL (6.4-8.2)
[2019-10-04 15:08] LABS: RUBELLA IgG QUALITATIVE IMMUNE (IMMUNE)
[2019-10-04 15:09] LABS: HEPATITIS B SURFACE ANTIGEN NEGATIVE (NEGATIVE)
[2019-10-04 15:37] LABS: HIV 1&2 SCREEN CENTAUR NEGATIVE (NEGATIVE)
[2019-10-04 15:46] LABS: HEPATITIS C VIRUS ABY INDEX > 11.0 INDEX (<0.8)
[2019-10-04 16:44] LABS: CHLAMYDIA DNA AMPLIFICATION NEGATIVE (NEGATIVE); GC DNA AMPLIFICATION NEGATIVE (NEGATIVE)
== END ==
LOC: M LAB 13:43
PROVIDERS: ATTEND Advanced Practice Midwife
DX: Z34.91 Encounter for supervision of normal pregnancy, unspecified, first trimester (principal); O98.412 Viral hepatitis complicating pregnancy, second trimester; Z3A.00 Weeks of gestation of pregnancy not specified

== ENCOUNTER → 2019-10-20 | Outpatient (CLI) | payer OTHER ==
--- NOTE | 2019-10-20 18:05 | REP ---
Clinical: Anatomical evaluation. Comparison: 07/19/2019 . Findings: Examination demonstrates a single live intrauterine in cephalic presentation. motion is identified by technologist. Placenta is noted anterior and grade zero without evidence for placenta previa or abruption. Amniotic fluid volume is normal. Cervix measures 3.1 cm in length and appears closed. Nuchal cord cannot be excluded. Gestational age by LMP 18 weeks 0 days with JAGDISH 03/22/2020 . Gestational age by current measurements 18 weeks 2 days with JAGDISH 03/20/2020 . FHR equals 158 beats per minute. Estimated weight 244 grams ( 68th percentile). Anatomical assessment demonstrates normal structures including cranium, choroid plexus, cavum, cerebellum/posterior fossa, lungs, diaphragm, stomach, cord insertion/three-vessel cord, kidneys/bladder, spine, and extremities. Impression: 1. Single live intrauterine in cephalic presentation demonstrating appropriate interval growth. 2. Nuchal cord cannot be excluded. 3. Limited evaluation of the facial features and heart/ventricular outflow tracts due to positioning. Electronically Signed by Luis A Paniagua MD 10/20/2019 05:56 P
== END ==
LOC: M RAD 11:47
PROVIDERS: ATTEND Advanced Practice Midwife
DX: O98.412 Viral hepatitis complicating pregnancy, second trimester (principal)

== ENCOUNTER → 2019-11-04 | Outpatient (CLI) | payer OTHER | LOC: M WHC 15:04 | PROVIDERS: ATTEND Advanced Practice Midwife | DX: Z53.9 Procedure and treatment not carried out, unspecified reason (principal) ==

== ENCOUNTER → 2019-12-23 | Outpatient (REF) | payer OTHER ==
[~2019-12-23] MED LIST changes: +CEPH500C PO; +CYCL-707 PO; +FERR325T18 PO; +NICO14DI24 TOP; +ONDA-83 PO
== END ==
LOC: M SFHCWAGY 10:10
PROVIDERS: ATTEND Advanced Practice Midwife
DX: R30.0 Dysuria (principal)

== ENCOUNTER 2020-01-04 14:53 | Inpatient (IN) | payer OTHER ==
[~2020-01-04] VITALS: Ht 154.9 cm; Wt 63.0 kg
[~2020-01-04 14:53] MED LIST changes: -CEPH500C PO; -CYCL-707 PO; -FERR325T18 PO; -NICO14DI24 TOP; -ONDA-83 PO
[2020-01-04] MEDS ORDERED: CYCL-707 PO (15:16)
[2020-01-04] MEDS ORDERED: ONDA-83 PO (15:16)
[2020-01-04] MEDS ORDERED: FERR325T18 PO (15:16)
[2020-01-04] MEDS ORDERED: NS 1,000 ML IV ONE (15:45)
[2020-01-04 16:09] LABS: BASO % 0.1 % (0.0-1.0); EOS % 0.2 % (0.0-3.0); HEMATOCRIT 21.7 % (36.0-47.0); LYMPH # 1.3 10^3/uL (1.5-5.0); LYMPH % 10.5 % (24.0-44.0); MEAN CORPUSCULAR HEMOGLOBIN 26.9 pg (27.0-33.0); MEAN CORPUSCULAR HGB CONC 32.3 g/dl (32.0-36.5); MEAN CORPUSCULAR VOLUME 83.5 fl (80.0-96.0); MONO # 0.9 10^3/uL (0.0-0.8); MONO % 7.9 % (0.0-5.0); NEUTROPHILS # 9.5 10^3/uL (1.5-8.5); NEUTROPHILS % 80.2 % (36.0-66.0); PLATELET COUNT, AUTOMATED 392 10^3/uL (150-450); WHITE BLOOD COUNT 11.9 10^3/uL (4.0-10.0)
[2020-01-04 16:20] LABS: INR 1.09; PARTIAL THROMBOPLASTIN TIME 32.2 SECONDS (25.0-38.4); PROTHROMBIN TIME 13.8 SECONDS (11.8-14.0)
[2020-01-04 16:36] LABS: ALBUMIN 1.9 GM/DL (3.2-5.2); ALT/SGPT 10 U/L (12-78); BILIRUBIN,DIRECT 0.2 MG/DL (0.0-0.2); BILIRUBIN,TOTAL 0.3 MG/DL (0.2-1.0); LIPASE 30 U/L (73-393); TOTAL PROTEIN 5.6 GM/DL (6.4-8.2)
[2020-01-04 17:33] LABS: BLOOD UREA NITROGEN 3 MG/DL (7-18); CALCIUM LEVEL 7.7 MG/DL (8.5-10.1); CARBON DIOXIDE LEVEL 22 MEQ/L (21-32); CHLORIDE LEVEL 105 MEQ/L (98-107); CREATININE FOR GFR 0.42 MG/DL (0.55-1.30); GLOMERULAR FILTRATION RATE > 60.0 (>60); GLUCOSE, FASTING 84 MG/DL (70-100); POTASSIUM SERUM 3.6 MEQ/L (3.5-5.1); SODIUM LEVEL 136 MEQ/L (136-145)
--- NOTE | 2020-01-04 18:09 | REPVR ---
PROCEDURE INFORMATION: Exam: US Abdomen, Limited; Right Upper Quadrant Exam date and time: 01/04/2020 5:54 PM Age: 24 years old Clinical indication: Abdominal pain; Flank; Right upper quadrant (ruq); ; Additional info: Right flank, ruq pain TECHNIQUE: Imaging protocol: US abdomen. Real time ultrasound with image documentation. Limited exam focused on the right upper quadrant. COMPARISON: GALLBLADDER US 03/04/2017 8:01 AM FINDINGS: Liver: Normal. No masses. Gallbladder: Small echogenic focus demonstrated within the lumen of the gallbladder may represent a small mobile gallstone. No gallbladder wall thickening or pericholecystic fluid. Common bile duct: The common bile duct measures 3 mm. No mass or choledocholithiasis. Pancreas: Visualized pancreas is unremarkable. Right kidney: Right kidney measures 12.1 x 7.4 x 6.5 cm. Moderate proximal hydroureteronephrosis. Distal ureter not visualized. Considering the gravid status of the patient finding likely represents compression of the distal ureter by the gravid uterus. Nonshadowing echogenic foci demonstrated in the upper pole of the right kidney measuring up to 7.5 mm. Finding may represent angiomyolipomas. Inferior vena cava: Incidental note is made of a gravid uterus containing a single fetus. heart rate 170 bpm. IMPRESSION: 1. Right kidney measures 12.1 x 7.4 x 6.5 cm. Moderate proximal hydroureteronephrosis. Distal ureter not visualized. Considering the gravid status of the patient finding likely represents compression of the distal ureter by the gravid uterus. 2. Nonshadowing echogenic foci demonstrated in the upper pole of the right kidney measuring up to 7.5 mm. Finding may represent angiomyolipomas. 3. Small echogenic focus demonstrated within the lumen of the gallbladder may represent a small mobile gallstone. No gallbladder wall thickening or pericholecystic fluid. Electronically signed by: Kristopher Diaz On 01/04/2020 18:09:33 PM
[2020-01-04] MEDS ORDERED: ACETAMINOPHEN TAB 650MG DOSE (2X325MG) As Ordered ONE (18:14)
[2020-01-04] MEDS ORDERED: ACETAMINOPHEN TAB 650MG DOSE (2X325MG) PO ONE (18:15)
[2020-01-04] MEDS ORDERED: cefTRIAXone SOD 2 GM in D5W MINI-BAG PLUS 50 ML IV ONE (19:30)
[2020-01-04] MEDS ORDERED: NICO14DI24 TOP (19:44)
[2020-01-04] MEDS ORDERED: CEPH500C PO (19:44)
[2020-01-04] MEDS ORDERED: ONDANSETRON 4 MG TAB PO PRN ×2 (21:45→23:30)
--- NOTE | 2020-01-04 21:58 | HPE ---
DATE OF ADMISSION: 01/04/2020 She is a 24-year-old 4, para 2-1-0-3 female at 28-6/7 weeks gestation by a 9 week ultrasound, estimated date of confinement (EDC) 03/22/2020, presents with fevers as high as 104 at home. She had right flank pain that rotated into the right subcostal area anteriorly. She denies vomiting. Pain is intermittent. OBSTETRICAL HISTORY: 1. 2013, 42 week vaginal delivery, 9 pound 5 ounce male infant. 2. 2016, 41 week vaginal delivery, 8 pound 4 ounce male . 3. 2018, 36 week vaginal delivery, 5 pound 8 ounce female infant. MEDICAL HISTORY: 1. Chronic hepatitis C. 2. 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 SURGICAL HISTORY: 1. Adenoidectomy. ALLERGIES: No known drug allergies. SOCIAL HISTORY: The patient lives in [place]. She smokes cigarettes. She has a history of drug abuse but has been clean for 2 years. FAMILY HISTORY: Noncontributory. PHYSICAL EXAMINATION: Temperature 101.8, pulse 119, blood pressure 124/64. She is a pale appearing female, no apparent distress. HEAD/NECK: Exam normal. LUNGS: Clear. HEART: Regular. ABDOMEN: Nontender, gravid, minimal CVA tenderness on the right. heart tones present. EXTREMITIES: Nontender. Abdominal ultrasound reveals moderate hydronephrosis to the right. No other suspicious findings. Gallbladder is normal. Urinalysis reveals numerous white blood cells. ASSESSMENT: 24-year-old, 4, para 2-1-0-3 female at 28-6/7 weeks gestation presents with probable right-sided pyelonephritis. PLAN: Patient is admitted on 01/04/2020. She will be given ceftriaxone IV. Previous urine culture from 12/23/2019 did reveal Escherichia (E) coli. She was sensitive to ceftriaxone. Of note, patient also has severe anemia with a hemoglobin of 7.0. Will consider blood transfusion during this hospitalization.
[2020-01-04 22:19] VITALS: BP 103/57
[2020-01-04 23:12] LABS: AMPHETAMINES URINE REFLEX NEGATIVE (NEGATIVE); BARBITURATES URINE REFLEX NEGATIVE (NEGATIVE); BENZODIAZEPINES URINE REFLEX NEGATIVE (NEGATIVE); CANNABINOIDS URINE REFLEX NEGATIVE (NEGATIVE); COCAINE METABOLITE URINE REFLE NEGATIVE (NEGATIVE); METHADONE URINE REFLEX NEGATIVE (NEGATIVE); OPIATES URINE REFLEX NEGATIVE (NEGATIVE); PHENCYCLIDINE URINE REFLEX NEGATIVE (NEGATIVE)
[2020-01-04] MEDS ORDERED: ACETAMINOPHEN 500 MG TAB PO PRN (23:30)
[2020-01-04] MEDS ORDERED: ONDANSETRON 4MG/2ML VIAL IV PRN (23:45)
[2020-01-05] VITALS (16 sets, daily range): BP systolic 91–111; BP diastolic 50–62
[2020-01-05] MEDS: NS 1,000 ML IV SCH (04:33)
--- NOTE | 2020-01-05 07:28 | REP ---
CHEST, SINGLE VIEW: There is no evidence of acute infiltrate. No pleural effusion is seen. The heart is normal in size. The mediastinal silhouette is unremarkable. The visualized osseous structures are intact. IMPRESSION: No acute pulmonary disease. Electronically Signed by Georgi Esquivel MD 01/06/2020 09:15 A
[2020-01-05 08:33] LABS: HEMATOCRIT 27.5 % (36.0-47.0); HEMOGLOBIN 8.9 g/dl (12.0-15.5); MEAN CORPUSCULAR HEMOGLOBIN 27.2 pg (27.0-33.0); MEAN CORPUSCULAR HGB CONC 32.4 g/dl (32.0-36.5); MEAN CORPUSCULAR VOLUME 84.1 fl (80.0-96.0); RED BLOOD COUNT 3.27 10^6/uL (4.00-5.40); WHITE BLOOD COUNT 8.9 10^3/uL (4.0-10.0)
[2020-01-05 08:41] LABS: PLATELET COUNT, AUTOMATED 234 10^3/uL (150-450)
[2020-01-05] MEDS: PRENATAL VITAMINS CHEWABLE TABLET PO SCH (08:56)
[2020-01-05] MEDS: FERROUS SULFATE 325MG TAB PO SCH (08:56)
[2020-01-05] MEDS: cefTRIAXone SOD 1 GM in D5W MINI-BAG PLUS 50 ML IV SCH (08:57)
[2020-01-05] MEDS: NICOTINE 14 MG/24 HR TRANSDERMAL TOP SCH (08:57)
[2020-01-05 09:09] LABS: ALBUMIN 1.8 GM/DL (3.2-5.2); ALT/SGPT 11 U/L (12-78); BILIRUBIN,TOTAL 0.4 MG/DL (0.2-1.0); BLOOD UREA NITROGEN 6 MG/DL (7-18); CALCIUM LEVEL 7.8 MG/DL (8.5-10.1); CARBON DIOXIDE LEVEL 23 MEQ/L (21-32); CHLORIDE LEVEL 108 MEQ/L (98-107); CREATININE FOR GFR 0.37 MG/DL (0.55-1.30); GLOMERULAR FILTRATION RATE > 60.0 (>60); GLUCOSE, FASTING 98 MG/DL (70-100); POTASSIUM SERUM 3.3 MEQ/L (3.5-5.1); SODIUM LEVEL 139 MEQ/L (136-145); TOTAL PROTEIN 5.6 GM/DL (6.4-8.2)
[2020-01-05] MEDS ORDERED: CYCLOBENZAPRINE 10MG TABLET PO PRN (20:15)
[2020-01-06] VITALS: BP 94/52
[2020-01-06] MEDS: NS 1,000 ML IV SCH (02:03)
[2020-01-06 04:00] VITALS: BP 95/52
[2020-01-06 06:55] VITALS: BP 98/56
[2020-01-06] MEDS: FERROUS SULFATE 325MG TAB PO SCH (08:37)
[2020-01-06] MEDS: cefTRIAXone SOD 1 GM in D5W MINI-BAG PLUS 50 ML IV SCH (08:37)
[2020-01-06] MEDS: NICOTINE 14 MG/24 HR TRANSDERMAL TOP SCH (08:37)
[2020-01-06 12:00] VITALS: BP 110/58
[2020-01-06] MEDS: PRENATAL VITAMINS CHEWABLE TABLET PO SCH (12:23)
--- NOTE | 2020-01-15 12:08 | DSES ---
DATE OF ADMISSION: 01/04/2020 DATE OF DISCHARGE: 01/06/2020 24-year-old, (G) 4, para (P) 3 female at 28 and 6/7 weeks gestation by 9 week ultrasound who presented with fevers as high as 104 at home. She had right flank pain that rotated to the right subcostal area. She denied vomiting. She had been treated for a urinary tract infection (UTI) with E. Coli. However, she did not cotton picker the antibiotics and had not started them. HOSPITAL COURSE: The patient was noted to be febrile with symptoms consistent with possible pyelonephritis. She had ultrasound imaging of her abdomen. She had cultures performed. She was admitted with a diagnosis of probable pyelonephritis in . She received IV Rocephin. Due to tachycardia and need for cardiac monitoring, she was maintained in the intensive care unit (ICU) initially. She made rapid improvement. Her fever subsided. Her pain improved significantly. She was afebrile for greater than 36 hours at the time of discharge. Urine culture came back with E. Coli. She was seen today before discharge on hospital day #3. ADMISSION DIAGNOSES: 1. at 29 weeks. 2. Pyelonephritis on the right. DISCHARGE DIAGNOSES: 1. at 29 weeks. 2. Pyelonephritis on the right. DISPOSITION: The patient will continue Keflex to finish 7 more days. She will followup in the office in one week. Instructions were reviewed.
== END 2020-01-06 14:52 | disposition home or self-care (01) | DRG 566 ==
LOC: EDBD 14:53 → M ED 14:53 → M ED INP 19:47 → ENRESERV 21:02 → M ICU 22:11 → M PCU 01-05 17:43
PROVIDERS: ADMIT Specialist; ATTEND Specialist
DX: O23.02 Infections of kidney in pregnancy, second trimester (principal); B96.20 Unspecified Escherichia coli [E. coli] as the cause of diseases classified elsewhere; Z3A.24 24 weeks gestation of pregnancy; Z11.59 Encounter for screening for other viral diseases; N13.6 Pyonephrosis

== ENCOUNTER → 2020-03-03 | Outpatient (REF) | payer OTHER ==
[~2020-03-03] MED LIST changes: +ACET-683 PO; +CEPH500C PO; +CYCL-707 PO; +FERR325T18 PO; +FERR325T3 PO; +IBUP80TA PO; +NICO14DI24 TOP; +ONDA-83 PO
== END ==
LOC: M SFHCWAGY 17:01
PROVIDERS: ATTEND Obstetrics & Gynecology
DX: Z34.83 Encounter for supervision of other normal pregnancy, third trimester (principal); Z3A.00 Weeks of gestation of pregnancy not specified

== ENCOUNTER 2020-03-05 13:29 | Inpatient (IN) | payer OTHER ==
[2020-03-05] VITALS (8 sets, daily range): BP systolic 97–118; BP diastolic 56–84
[~2020-03-05] VITALS: Ht 154.9 cm; Wt 60.3 kg
[~2020-03-05 13:29] MED LIST changes: -ACET-683 PO; -FERR325T3 PO; -IBUP80TA PO
[2020-03-05 14:55] LABS: HEMATOCRIT 32.7 % (36.0-47.0); HEMOGLOBIN 10.3 g/dl (12.0-15.5); MEAN CORPUSCULAR HEMOGLOBIN 25.5 pg (27.0-33.0); MEAN CORPUSCULAR HGB CONC 31.5 g/dl (32.0-36.5); MEAN CORPUSCULAR VOLUME 80.9 fl (80.0-96.0); PLATELET COUNT, AUTOMATED 391 10^3/uL (150-450); RED BLOOD COUNT 4.04 10^6/uL (4.00-5.40); WHITE BLOOD COUNT 11.7 10^3/uL (4.0-10.0)
[2020-03-05] MEDS ORDERED: PRENTAB9 PO (15:04)
[2020-03-05] MEDS ORDERED: FERR325T3 PO (15:25)
[2020-03-05 15:26] LABS: ALBUMIN 2.3 GM/DL (3.2-5.2); ALT/SGPT 55 U/L (12-78); BILIRUBIN,TOTAL 0.6 MG/DL (0.2-1.0); BLOOD UREA NITROGEN 7 MG/DL (7-18); CALCIUM LEVEL 8.5 MG/DL (8.5-10.1); CARBON DIOXIDE LEVEL 23 MEQ/L (21-32); CHLORIDE LEVEL 107 MEQ/L (98-107); CREATININE FOR GFR 0.44 MG/DL (0.55-1.30); GLOMERULAR FILTRATION RATE > 60.0 (>60); GLUCOSE, FASTING 71 MG/DL (70-100); POTASSIUM SERUM 4.2 MEQ/L (3.5-5.1); SODIUM LEVEL 137 MEQ/L (136-145); TOTAL PROTEIN 6.2 GM/DL (6.4-8.2)
[2020-03-05 15:30] LABS: APPEARANCE, URINE CLEAR (CLEAR); BACTERIA, URINE AUTO NEGATIVE (NEGATIVE); BILIRUBIN, URINE AUTO 1+ (NEGATIVE); BLOOD, URINE BLOOD NEGATIVE (NEGATIVE); CALCIUM OXALATE CRYSTALS SMALL; COLOR, URINE AMBER (YELLOW); GLUCOSE, URINE (UA) AUTO NEGATIVE (NEGATIVE); KETONE, URINE AUTO TRACE mg/dL (NEGATIVE); LEUKOCYTE ESTERASE, URINE AUTO NEGATIVE (NEGATIVE); MUCUS, URINE SMALL (NEGATIVE); NITRITE, URINE AUTO NEGATIVE (NEGATIVE); PROTEIN, URINE AUTO NEGATIVE (NEGATIVE); RBC, URINE AUTO 1 /HPF (0-3); SPECIFIC GRAVITY URINE AUTO 1.021 (1.002-1.035); SQUAMOUS EPITHELIAL CELL UR AU 3 /HPF (0-6); WBC, URINE AUTO 2 /HPF (0-3)
[2020-03-05] MEDS ORDERED: PENICILLIN G POTASSIUM IV 5 MU in D5W MINI-BAG PLUS 100 ML IV STA (15:48)
[2020-03-05] MEDS ORDERED: LACTATED RINGER'S 1000 ML IV STA (15:48)
[2020-03-05 15:52] LABS: AMPHETAMINES URINE REFLEX NEGATIVE (NEGATIVE); BARBITURATES URINE REFLEX NEGATIVE (NEGATIVE); BENZODIAZEPINES URINE REFLEX NEGATIVE (NEGATIVE); CANNABINOIDS URINE REFLEX NEGATIVE (NEGATIVE); COCAINE METABOLITE URINE REFLE NEGATIVE (NEGATIVE); METHADONE URINE REFLEX NEGATIVE (NEGATIVE); OPIATES URINE REFLEX NEGATIVE (NEGATIVE); PHENCYCLIDINE URINE REFLEX NEGATIVE (NEGATIVE)
[2020-03-05] MEDS ORDERED: OXYTOCIN DRIP 30 UNITS in IV 1 EA IV SCH (16:15)
[2020-03-05] MEDS: LR 1,000 ML IV SCH ×3 (16:22→22:20)
[2020-03-05] MEDS ORDERED: ePHEDrine SULFATE 25 MG/5 ML(5MG/ML) SYRINGE IV PRN (19:45)
[2020-03-05] MEDS ORDERED: ONDANSETRON 4MG/2ML VIAL IV PRN (19:45)
[2020-03-05] MEDS ORDERED: LACTATED RINGER'S 1000 ML IV PRN (19:45)
[2020-03-05] MEDS ORDERED: EPIDURAL COMMENT XX SCH (19:45)
[2020-03-05] MEDS ORDERED: REFRIGERATOR IV KEYS XX PRN (19:45)
[2020-03-05] MEDS ORDERED: diphenhydrAMINE 50MG/ML VIAL (J1200) IV PRN (19:45)
[2020-03-05] MEDS ORDERED: EPIDURAL/PCA KEYS XX PRN (19:45)
[2020-03-05] MEDS ORDERED: FENTANYL/ROPIVACAINE/NACL BAG 100 ML EPIDURAL SCH (19:45)
[2020-03-05] MEDS ORDERED: NALOXONE INJ 0.4MG/1ML VIAL (J2310 PER 1MG) IV PRN (19:45)
[2020-03-05] MEDS ORDERED: FENTANYL 2MCG/ML ROPIVACAINE 0.2% IN 0.9% NACL 100ML IVBAG As Ordered ONE (19:48)
[2020-03-05] MEDS: PENICILLIN G POTASSIUM IV 2.5 MU in IV 1 EA IV SCH (20:28)
[2020-03-06] MEDS: PENICILLIN G POTASSIUM IV 2.5 MU in IV 1 EA IV SCH (00:38)
[2020-03-06] MEDS ORDERED: PROMETHAZINE 25 MG TAB PO PRN (01:15)
[2020-03-06] MEDS ORDERED: IBUPROFEN 600MG TAB PO PRN (01:15)
[2020-03-06] MEDS ORDERED: ONDANSETRON 4MG/2ML VIAL IV PRN (01:15)
[2020-03-06] MEDS ORDERED: DIBUCAINE 1% OINTMENT 30GM TOP PRN (01:15)
[2020-03-06] MEDS ORDERED: OXYTOCIN DRIP 30 UNITS in IV 1 EA IV SCH (01:15)
[2020-03-06] MEDS ORDERED: DOCUSATE SODIUM 100 MG CAP PO PRN (01:15)
[2020-03-06] MEDS ORDERED: MEASLES,MUMPS,RUBELLA VACCINE INJ (MMR-II) (90707) SC SCH (01:15)
[2020-03-06] MEDS ORDERED: RHOGAM 300 MCG (1500 IU) INJ (J2790) IM SCH (01:15)
[2020-03-06] MEDS ORDERED: ACETAMINOPHEN TAB 650MG DOSE (2X325MG) PO PRN (01:15)
[2020-03-06 02:45] VITALS: BP 96/55
[2020-03-06] MEDS ORDERED: diphenhydrAMINE 50MG/ML VIAL (J1200) IV ONE (03:00)
[2020-03-06 06:00] VITALS: BP 106/58
[2020-03-06] MEDS ORDERED: INFLUENZA QUADRIVALENT PF VACCINE 0.5ML SYRINGE IM ONE (09:00)
[2020-03-06] MEDS ORDERED: BOOSTRIX/ADACEL VACCINE (DIPHTH/PERTUSS/ACELL/TETANUS) 0.5ML SYR IM ONE (09:00)
[2020-03-06] MEDS: PRENATAL VITAMINS CHEWABLE TABLET PO SCH (09:00)
[2020-03-06] MEDS: IBUPROFEN 800 MG TAB PO PRN (10:30)
[2020-03-06 18:00] VITALS: BP 112/57
[2020-03-06] MEDS: ACETAMINOPHEN 500 MG TAB PO PRN (18:19)
[2020-03-07] MEDS: IBUPROFEN 800 MG TAB PO PRN (02:16)
[2020-03-07 05:51] VITALS: BP 96/58
[2020-03-07] MEDS ORDERED: BOOSTRIX/ADACEL VACCINE (DIPHTH/PERTUSS/ACELL/TETANUS) 0.5ML SYR IM ONE (09:00)
[2020-03-07] MEDS ORDERED: INFLUENZA QUADRIVALENT PF VACCINE 0.5ML SYRINGE IM ONE (09:00)
[2020-03-07] MEDS: ACETAMINOPHEN 500 MG TAB PO PRN (10:06)
[2020-03-07] MEDS ORDERED: IBUP80TA PO (10:44)
[2020-03-07] MEDS ORDERED: ACET-683 PO (10:44)
[2020-03-07] MEDS: PRENATAL VITAMINS CHEWABLE TABLET PO SCH (10:54)
--- NOTE | 2020-03-07 11:01 | IPNPDOC ---
Progress Note Date of Service: Mar 07, 2020 Day#: 1 Progress Note PPD 1 SUBJECT: Anne-Marie is a 24yo [id number] s/p uncomplicated after undergoing IOL at term for IHCP. PNC is significant for Chronic Hepatitis C, Hx of IV heroin use several years ago and pyelonephritis treated earlier in this . She is doing well day # 1. She has been ambulating, voiding spontaneously without issue and tolerating regular diet. Formula feeding without issue. Reports lochia is like a normal period. No f/c/n/v/CP/SOB. OBJECTIVE: VITAL SIGNS: Within normal limits, afebrile. Alert and oriented times three. Abdomen: Fundus firm at U-2. Soft, NTTP. Extremities: no pain with palpation of calves ASSESSMENT: Anne-Marie is a 24yo [id number] s/p uncomplicated after undergoing IOL at term for IHCP. PNC is significant for Chronic Hepatitis C, Hx of IV heroin use several years ago and pyelonephritis treated earlier in this . She is doing well day # 1. Vitals within normal limits, afebrile, hemodynamically stable with no evidence of infection. PLAN: 1. Discharge to home today. 2. Tylenol and Motrin for pain. 3. Regular diet 4. OCP to start at 6 weeks patient desires tubal ligation which we discussed and will readdress at PP visit 5. Routine PP visit in 6 weeks in clinic. 6. Discussed return precautions at length. Narda Wright MD VS, I&O, 24H, Fishbone Vital Signs/I&O Vital Signs Date Time Temp Pulse Resp B/P (MAP) Pulse Ox O2 Delivery O2 Flow Rate FiO2 03/07/20 05:51 98.3 72 18 96/58 (71) 03/06/20 18:00 97 Room Air I&O- Last 24 Hours up to 6 AM 03/07/20 06:00 Output Total 300 ml Balance -300 ml Laboratory Data Microbiology Microbiology 03/05/20 Urine Culture - Final, Complete Narda Wright MD Mar 07, 2020 11:01
--- NOTE | 2020-03-07 11:04 | DS.PDOC ---
Discharge Summary General Date of Admission Mar 05, 2020 at 15:32 Date of Discharge Mar 07, 2020 Discharge Summary PROCEDURES PERFORMED DURING STAY: spontaneous vaginal delivery ADMITTING DIAGNOSES: 1. Term , IHCP 2. Chronic Hepatitis C 3. Hx of pyelonephritis treated in this 4. Hx of heroin use several years ago DISCHARGE DIAGNOSES: 1. Term , IHCP- delivered 2. Chronic Hepatitis C 3. Hx of pyelonephritis treated in this 4. Hx of heroin use several years ago COMPLICATIONS/CHIEF COMPLAINT: Cholestasis. HISTORY OF PRESENT ILLNESS/HOSPITAL COURSE: Anne-Marie is a 24yo [id number] s/p uncomplicated after undergoing IOL at term for IHCP. PNC is significant for Chronic Hepatitis C, Hx of IV heroin use several years ago and pyelonephritis treated earlier in this . She is doing well day # 1. At time of discharge, vitals were within normal limits, she was afebrile, hemodynamically stable with no evidence of infection. DISCHARGE MEDICATIONS: Please see below. ALLERGIES: Please see below. PHYSICAL EXAMINATION ON DISCHARGE: VITAL SIGNS: Within normal limits, afebrile. Alert and oriented times three. Abdomen: Fundus firm at U-2. Soft, NTTP. Extremities: no pain with palpation of calves LABORATORY DATA: Please see below. ACTIVITY: As tolerated, vaginal rest 6 weeks no heavy lifting DIET: regular DISPOSITION: home DISCHARGE INSTRUCTIONS: 1. Discharge to home today. 2. Tylenol and Motrin for pain. 3. Regular diet 4. OCP to start at 6 weeks patient desires tubal ligation which we discussed and will readdress at PP visit 5. Routine PP visit in 6 weeks in clinic. 6. Discussed return precautions at length. DISCHARGE CONDITION: Stable TIME SPENT ON DISCHARGE: Greater than 20 minutes. Narda Wright MD Vital Signs/I&Os Vital Signs Date Time Temp Pulse Resp B/P (MAP) Pulse Ox O2 Delivery O2 Flow Rate FiO2 03/07/20 05:51 98.3 72 18 96/58 (71) 03/06/20 18:00 97 Room Air I&O- Last 24 Hours up to 6 AM 03/07/20 06:00 Output Total 300 ml Balance -300 ml Microbiology Microbiology 03/05/20 Urine Culture - Final, Complete Discharge Medications Scheduled Ferrous Sulfate (Ferrous Sulfate) 325 Mg Tablet., 325 MG PO DAILY, (Reported) No.137/Iron/Folic Acd ( Vitamin Tablet) 1 Each Tablet, 1 TAB PO DAILY, (Reported) Scheduled PRN Acetaminophen (Acetaminophen) 500 Mg Tablet, 1,000 MG PO Q6HP PRN for PAIN LEVEL 6-10 Ibuprofen (Ibuprofen) 800 Mg Tablet, 800 MG PO Q8HP PRN for PAIN LEVEL 6-10 Allergies Coded Allergies: soap (Verified Allergy, Unknown, TIDE: RASH, 03/05/20) Narda Wright MD Mar 07, 2020 11:04
== END 2020-03-07 17:45 | disposition home or self-care (01) | DRG 560 ==
LOC: M LDO 13:29 → M LDI 15:32 → M OBS 03-06 02:38
PROVIDERS: ADMIT Obstetrics & Gynecology; ATTEND Obstetrics & Gynecology
PROC: 10907ZC Drainage of Amniotic Fluid, Therapeutic from Products of Conception, Via Natural or Artificial Opening (ICD-10-PCS; 2020-03-05)
PROC: 3E033VJ Introduction of Other Hormone into Peripheral Vein, Percutaneous Approach (ICD-10-PCS; 2020-03-05)
PROC: 10E0XZZ Delivery of Products of Conception, External Approach (ICD-10-PCS; principal; 2020-03-06)
DX: O98.42 Viral hepatitis complicating childbirth (principal); B18.2 Chronic viral hepatitis C; Z37.0 Single live birth; Z3A.37 37 weeks gestation of pregnancy

== ENCOUNTER 2020-07-24 00:16 | Emergency (ER) | payer OTHER ==
[~2020-07-24] VITALS: Ht 154.9 cm; Wt 49.7 kg
[~2020-07-24 00:16] MED LIST changes: +ACET-683 PO; +FERR325T3 PO; +IBUP80TA PO
--- NOTE | 2020-07-24 01:04 | REPVR ---
PROCEDURE INFORMATION: Exam: CT Head Without Contrast Exam date and time: 07/24/2020 12:54 AM Age: 24 years old Clinical indication: Pain; Headache; Additional info: Head injury TECHNIQUE: Imaging protocol: Computed tomography of the head without contrast. Radiation optimization: All CT scans at this facility use at least one of these dose optimization techniques: automated exposure control; mA and/or kV adjustment per patient size (includes targeted exams where dose is matched to clinical indication); or iterative reconstruction. COMPARISON: CT Head without contrast 03/10/2015 3:15 PM FINDINGS: Brain: Normal. No hemorrhage. Unremarkable white matter. No mass effect. Cerebral ventricles: No ventriculomegaly. Bones/joints: Unremarkable. No acute fracture. Paranasal sinuses: Visualized sinuses are unremarkable. No fluid levels. Mastoid air cells: Visualized mastoid air cells are well aerated. Soft tissues: Unremarkable. IMPRESSION: No acute intracranial abnormality. Electronically signed by: Mo Juarez On 07/24/2020 01:03:52 AM
[2020-07-24] MEDS ORDERED: NS 1,000 ML IV ONE ×2 (01:30→03:15)
[2020-07-24 01:32] LABS: BASO % 0.4 % (0.0-1.0); EOS % 0.6 % (0.0-3.0); HEMATOCRIT 31.3 % (36.0-47.0); HEMOGLOBIN 9.8 g/dl (12.0-15.5); LYMPH # 0.1 10^3/uL (1.5-5.0); LYMPH % 2.8 % (24.0-44.0); MEAN CORPUSCULAR HEMOGLOBIN 26.4 pg (27.0-33.0); MEAN CORPUSCULAR HGB CONC 31.3 g/dl (32.0-36.5); MEAN CORPUSCULAR VOLUME 84.4 fl (80.0-96.0); MONO # 0.1 10^3/uL (0.0-0.8); NEUTROPHILS # 4.6 10^3/uL (1.5-8.5); NEUTROPHILS % 93.8 % (36.0-66.0); PLATELET COUNT, AUTOMATED 160 10^3/uL (150-450); RED BLOOD COUNT 3.71 10^6/uL (4.00-5.40); WHITE BLOOD COUNT 4.9 10^3/uL (4.0-10.0)
[2020-07-24 01:45] LABS: INR 1.05; PROTHROMBIN TIME 13.9 SECONDS (12.5-14.3)
[2020-07-24 01:57] LABS: BLOOD UREA NITROGEN 21 MG/DL (7-18); CARBON DIOXIDE LEVEL 27 MEQ/L (21-32); CHLORIDE LEVEL 107 MEQ/L (98-107); CREATININE FOR GFR 0.74 MG/DL (0.55-1.30); GLOMERULAR FILTRATION RATE > 60.0 (>60); GLUCOSE, FASTING 164 MG/DL (70-100); POTASSIUM SERUM 3.5 MEQ/L (3.5-5.1); SODIUM LEVEL 139 MEQ/L (136-145)
[2020-07-24] MEDS ORDERED: diphenhydrAMINE 50MG/ML VIAL (J1200) IV STA (03:04)
[2020-07-24] MEDS ORDERED: KETOROLAC 30 MG/ML 1ML VIAL IV ONE (03:15)
[2020-07-24] MEDS ORDERED: METOCLOPRAMIDE INJ 10MG/2ML VIAL (J2765 PER 1) IV ONE (03:15)
[2020-07-24 03:17] LABS: RSV AMPLIFICATION NEGATIVE (NEGATIVE)
[2020-07-24 03:47] LABS: CK-MB VALUE MASS < 1.0 NG/ML (<3.6); CPK CREATINE PHOSPHOKINASE 59 U/L (26-192); MB/CK RELATIVE INDEX 1.69 (< OR =4); TROPONIN I < 0.02 NG/ML (< 0.10)
[2020-07-24 05:03] LABS: AMPHETAMINES LEVEL URINE NEGATIVE (NEGATIVE); BARBITURATES URINE NEGATIVE (NEGATIVE); BENZODIAZEPINES URINE NEGATIVE (NEGATIVE); CANNABINOIDS URINE NEGATIVE (NEGATIVE); COCAINE METABOLITE URINE POSITIVE (NEGATIVE); METHADONE URINE NEGATIVE (NEGATIVE); OPIATES URINE NEGATIVE (NEGATIVE); PHENCYCLIDINE URINE NEGATIVE (NEGATIVE)
[2020-07-24] MEDS ORDERED: CEPH500C PO (05:10)
[2020-07-24] MEDS ORDERED: CEPHALEXIN 500 MG CAP PO ONE (05:15)
[2020-07-24 06:00] VITALS: BP 101/51
--- NOTE | 2020-07-24 07:07 | ECGEPIP ---
[facility] - ED Test Date: 2020-07-24 Pat Name: KRYSTINA HORNE Department: Room: - Gender: Female Degreaser: : 1995 Requested By: MONTANA MANCILLA Order Number: [id number] Reading MD: Zhang Elliott Measurements Intervals [place] Rate: 107 P: 58 AK: 126 QRS: 77 QRSD: 91 T: 58 QT: 319 QTc: 426 Interpretive Statements SINUS TACHYCARDIA RATE CHANGE COMPARED TO 07/27/18 Electronically Signed on 07-24-2020 7:07:36 EST by Zhang Elliott
== END 2020-07-24 06:18 | disposition home or self-care (01) ==
LOC: M ED 00:16
DX: F14.10 Cocaine abuse, uncomplicated (principal); N39.0 Urinary tract infection, site not specified; D64.9 Anemia, unspecified; Z91.048 Other nonmedicinal substance allergy status; Z79.899 Other long term (current) drug therapy
CPT/HCPCS: 70450; 80048; 80307; 81001; 82550; 82553; 85025; 85610; 86850; 86900; 86901; 87088; 87186; 87631; 93005; 96361; 96374; 96375; 99285; J1200; J1885; J2765

== ENCOUNTER 2020-07-26 13:25 | Emergency (ER) | payer OTHER ==
[~2020-07-26] VITALS: Ht 154.9 cm; Wt 53.1 kg
[2020-07-26 13:25] VITALS: BP 129/80
--- OUTSIDE RECORDS SUMMARY | 2020-07-26 13:32 | CCD ---
Author Author [facility] Organization [facility] Address Unknown Phone Unavailable Care Team Providers Care Work Environment Safety Inspector Name Role Phone Radha Flores MD Unavailable Unavailable ANH, M BRITTANY CNM Unavailable Unavailable ANH, M BRITTANY CNM Unavailable Unavailable ANH, M BRITTANY CNM Unavailable Unavailable ANH, M BRITTANY CNM Unavailable Unavailable ANH, M BRITTANY CNM Unavailable Unavailable ANH, M BRITTANY CNM Unavailable Unavailable ANH, M BRITTANY CNM Unavailable Unavailable ANH, M BRITTANY CNM Unavailable Unavailable ANH, M BRITTANY CNM Unavailable Unavailable ANH, M BRITTANY CNM Unavailable Unavailable ANH, M BRITTANY CNM Unavailable Unavailable ANH, M BRITTANY CNM Unavailable Unavailable ANH, M BRITTANY CNM Unavailable Unavailable ANH, M BRITTANY CNM Unavailable Unavailable ANH, M BRITTANY CNM Unavailable Unavailable ANH, M BRITTANY CNM Unavailable Unavailable ANH, M BRITTANY CNM Unavailable Unavailable Patricia Sargent MD Unavailable Unavailable Patricia Sargent MD Unavailable Unavailable Patricia Sargent MD Unavailable Unavailable Patricia Sargent MD Unavailable Unavailable Patricia Sargent MD Unavailable Unavailable Patricia Sargent MD Unavailable Unavailable Patricia Sargent MD Unavailable Unavailable Patricia Sargent MD Unavailable Unavailable Patricia Sargent MD Unavailable Unavailable Patricia Sargent MD Unavailable Unavailable Patricia Sargent MD Unavailable Unavailable Patricia Sargent MD Unavailable Unavailable Patricia Sargent MD Unavailable Unavailable Patricia Sargent MD Unavailable Unavailable Patricia Sargent MD Unavailable Unavailable Patricia Sargent MD Unavailable Unavailable Patricia Sargent MD Unavailable Unavailable Patricia Sargent MD Unavailable Unavailable Patricia Sargent MD Unavailable Unavailable Patricia Sargent MD Unavailable Unavailable Patricia Sargent MD Unavailable Unavailable Patricia Sargent MD Unavailable Unavailable Patricia Sargent MD Unavailable Unavailable Patricia Sargent MD Unavailable Unavailable Patricia Sargent MD Unavailable Unavailable Patricia Sargent MD Unavailable Unavailable Patricia Sargent MD Unavailable Unavailable Patricia Sargent MD Unavailable Unavailable Patricia Sargent MD Unavailable Unavailable Patricia Sargent MD Unavailable Unavailable Patricia Sargent MD Unavailable Unavailable Patricia Sargent MD Unavailable Unavailable Patricia Sargent MD Unavailable Unavailable Patricia Sargent MD Unavailable Unavailable Patricia Sargent MD Unavailable Unavailable Patricia Sargent MD Unavailable Unavailable Patricia Sargent MD Unavailable Unavailable Patricia Sargent MD Unavailable Unavailable Patricia Sargent MD Unavailable Unavailable Patricia Sargent MD Unavailable Unavailable Patricia Sargent MD Unavailable Unavailable Patricia Sargent MD Unavailable Unavailable Patricia Sargent MD Unavailable Unavailable Patricia Sargent MD Unavailable Unavailable Patricia Sargent MD Unavailable Unavailable Patricia Sargent MD Unavailable Unavailable Patricia Sargent MD Unavailable Unavailable Patricia Sargent MD Unavailable Unavailable Patricia Sargent MD Unavailable Unavailable Patricia Sargent MD Unavailable Unavailable Sargent, Patricia Moise MD Unavailable Unavailable Sargent, Patricia Moise MD Unavailable Unavailable Sargent, Patricia Moise MD Unavailable Unavailable Sargent, Patricia Moise MD Unavailable Unavailable Sargent, Patricia Moise MD Unavailable Unavailable Sargent, Patricia Moise MD Unavailable Unavailable Sargent, D Jose Maria MD Unavailable Unavailable Sargent, D Jose Maria MD Unavailable Unavailable Sargent, D Jose Maria MD Unavailable Unavailable Sargent, D Jose Maria MD Unavailable Unavailable Sargent, D Jose Maria MD Unavailable Unavailable Sargent, Patricia Moise MD Unavailable Unavailable Sargent, Patricia Moise MD Unavailable Unavailable Sargent, Patricia Moise MD Unavailable Unavailable Sargent, D Jose Maria MD Unavailable Unavailable Sargent, D Jose Maria MD Unavailable Unavailable Sargent, Patricia Moise MD Unavailable Unavailable Sargent, Patricia Moise MD Unavailable Unavailable Sargent, Patricia Moise MD Unavailable Unavailable Sargent, Patricia Moise MD Unavailable Unavailable Sargent, Patricia Moise MD Unavailable Unavailable Sargent, Patricia Moise MD Unavailable Unavailable Sargent, Patricia Moise MD Unavailable Unavailable Sargent, Patricia Moise MD Unavailable Unavailable Sargent, Patricia Moise MD Unavailable Unavailable Sargent, Patricia Moise MD Unavailable Unavailable Sargent, Patricia Moise MD Unavailable Unavailable Sargent, Patricia Moise MD Unavailable Unavailable Sargent, Patricia Moise MD Unavailable Unavailable Sargent, Patricia Moise MD Unavailable Unavailable Sargent, Patricia Moise MD Unavailable Unavailable Sargent, Patricia Moise MD Unavailable Unavailable Sargent, Patricia Moise MD Unavailable Unavailable Sargent, Patricia Moise MD Unavailable Unavailable Sargent, Patricia Moise MD Unavailable Unavailable Sargent, Patricia Moise MD Unavailable Unavailable Sargent, Patricia Moise MD Unavailable Unavailable Sargent, Patricia Moise MD Unavailable Unavailable Sargent, Patricia Moise MD Unavailable Unavailable TYLER FLORES MD Unavailable Unavailable TYLER FLORES MD Unavailable Unavailable TYLER FLORES MD Unavailable Unavailable TYLER FLORES MD Unavailable Unavailable Re-disclosure Warning The records that you are about to access may contain information from federally-assisted alcohol or drug abuse programs. If such information is present, then the following federally mandated warning applies: This information has been disclosed to you from records protected by federal confidentiality rules (42 CFR part 2). The federal rules prohibit you from making any further disclosure of this information unless further disclosure is expressly permitted by the written consent of the person to whom it pertains or as otherwise permitted by 42 CFR part 2. A general authorization for the release of medical or other information is NOT sufficient for this purpose. The Federal rules restrict any use of the information to criminally investigate or prosecute any alcohol or drug abuse patient.The records that you are about to access may contain highly sensitive health information, the redisclosure of which is protected by Article 27-F of the [place] State Public Health law. If you continue you may have access to information: Regarding HIV / AIDS; Provided by facilities licensed or operated by the [facility] Office of Mental Health; or Provided by the [facility] Office for People With Developmental Disabilities. If such information is present, then the following [facility] mandated warning applies: This information has been disclosed to you from confidential records which are protected by state law. State law prohibits you from making any further disclosure of this information without the specific written consent of the person to whom it pertains, or as otherwise permitted by law. Any unauthorized further disclosure in violation of state law may result in a fine or assisted sentence or both. A general authorization for the release of medical or other information is NOT sufficient authorization for further disc losure. Encounters Encounter Providers Location Date Indications Data Source(s ) Outpatient [facility] 06/04/2020 02:19:00 PM [facility] Outpatient [facility] 06/02/2020 10:11:00 AM [facility] Outpatient [facility] 06/01/2020 07:55:00 PM [facility] Inpatient Attender: Tyler Flores MDAt tender: TYLER FLORES MDAdmitter: TYLER LFORES MD [facility] 06/01/2020 03:25:00 PM EST - 06/04/2020 08:06:00 AM [facility] F1920 [facility] F1920 Patient discharged. Unknown [address] [facility] [address] 04/20/2020 12:00:00 AM EDT eCW1 ([facility]) ( ESTOB) [facility] OB [address] [place] [address] 01/17/2020 12:00:00 AM EDT eCW1 ([facility]) Outpatient Attender: Jose Maria Sargent MD FP 01/11/2020 04:30:04 PM EDT [facility] ( ESTOB) [facility] OB [address] [place] [address] 12/23/2019 12:00:00 AM EDT eCW1 ([facility]) Outpatient Attender: Jose Maria Sargent MD FP 12/07/2019 07:37:45 PM EDT [facility] [address] [place] [address] 12/03/2019 12:00:00 AM EDT eCW1 ([facility]) Outpatient Attender: Jose Maria TOLEDO 11/27/2019 12:11:18 AM EDT [facility] Unknown [address] [facility] [address] 11/20/2019 12:00:00 AM EDT eCW1 ([facility]) [facility] [address] [place] [address] 11/20/2019 12:00:00 AM EDT eCW1 ([facility]) [facility] [address] [place] [address] 11/20/2019 12:00:00 AM EDT eCW1 ([facility]) Outpatient Referrer: BRITTANY SOLANO CNM 11/16/2019 01:36:00 PM EDT [facility] Outpatient Referrer: BRITTANY SOLANO CNM 11/16/2019 01:17:00 PM EDT [facility] Unknown [address] [facility] [address] 11/13/2019 12:00:00 AM EDT eCW1 ([facility]) [facility] [address] [place] [address] 11/13/2019 12:00:00 AM EDT eCW1 ([facility]) Outpatient Referrer: BRITTANY SOLANO CNM 11/10/2019 03:32:00 PM EDT [facility] Outpatient Referrer: BRITTANY SOLANO CNM 11/10/2019 01:31:00 PM EDT [facility] Outpatient Referrer: BRITTANY SOLANO CNM 11/08/2019 11:50:00 AM EDT [facility] Outpatient 11/08/2019 11:47:00 AM EDT [facility] ([facility] ESTOB) [facility] [address] [place] [address] 11/05/2019 12:00:00 AM EDT eCW1 ([facility]) [facility] [address] [place] [address] 10/05/2019 12:00:00 AM EDT eCW1 ([facility]) [facility] [address] [place] [address] 09/24/2019 12:00:00 AM EDT eCW1 ([facility]) [facility] [address] [place] [address] 08/24/2019 12:00:00 AM EST eCW1 ([facility]) Outpatient 07/23/2019 01:49:00 PM EST [facility] Medications Medication Brand Name Start Date Product Form Dose Route Admi nistrative Instructions Pharmacy Instructions Status Indications Reaction Description Data Source(s) Cyclobenzaprine hydrochloride 10 MG Oral Tablet Cyclob enzaprine HCl 10 MG Cyclobenzaprine HCl 10 MG 12/23/2019 12:00:00 AM EDT 1.0 {tablet} active Cyclobenzaprine HCl 10 MG eCW1 ( [facility]) Cyclobenzaprine hydrochloride 10 MG Oral Tablet Cyclob enzaprine HCl 10 MG Cyclobenzaprine HCl 10 MG 12/23/2019 12:00:00 AM EDT 1.0 {tablet} active Cyclobenzaprine HCl 10 MG eCW1 ( [facility]) Cyclobenzaprine hydrochloride 10 MG Oral Tablet Cyclob enzaprine HCl 10 MG Cyclobenzaprine HCl 10 MG 12/23/2019 12:00:00 AM EDT 1.0 {tablet} active Cyclobenzaprine HCl 10 MG eCW1 ( [facility]) ferrous sulfate 325 MG Oral Tablet Ferrous Sulfate 325 (65 Fe) MG Ferrous Sulfate 325 (65 Fe) MG 10/05/2019 12:00:00 AM EDT 1.0 {tablet} suspended Ferrous Sulfate 325 (65 Fe) MG e CW1 ([facility]) ferrous sulfate 325 MG Oral Tablet Ferrous Sulfate 325 (65 Fe) MG Ferrous Sulfate 325 (65 Fe) MG 10/05/2019 12:00:00 AM EDT 1.0 {tablet} active Ferrous Sulfate 325 (65 Fe) MG eCW1 ([facility]) ferrous sulfate 325 MG Oral Tablet Ferrous Sulfate 325 (65 Fe) MG Ferrous Sulfate 325 (65 Fe) MG 10/05/2019 12:00:00 AM EDT 1.0 {tablet} suspended Ferrous Sulfate 325 (65 Fe) MG e CW1 ([facility]) ferrous sulfate 325 MG Oral Tablet Ferrous Sulfate 325 (65 Fe) MG Ferrous Sulfate 325 (65 Fe) MG 10/05/2019 12:00:00 AM EDT 1.0 {tablet} active Ferrous Sulfate 325 (65 Fe) MG eCW1 ([facility]) ferrous sulfate 325 MG Oral Tablet Ferrous Sulfate 325 (65 Fe) MG Ferrous Sulfate 325 (65 Fe) MG 10/05/2019 12:00:00 AM EDT 1.0 {tablet} suspended Ferrous Sulfate 325 (65 Fe) MG e CW1 ([facility]) ferrous sulfate 325 MG Oral Tablet Ferrous Sulfate 325 (65 Fe) MG Ferrous Sulfate 325 (65 Fe) MG 10/05/2019 12:00:00 AM EDT 1.0 {tablet} active Ferrous Sulfate 325 (65 Fe) MG eCW1 ([facility]) ferrous sulfate 325 MG Oral Tablet Ferrous Sulfate 325 (65 Fe) MG Ferrous Sulfate 325 (65 Fe) MG 10/05/2019 12:00:00 AM EDT 1.0 {tablet} active Ferrous Sulfate 325 (65 Fe) MG eCW1 ([facility]) Ondansetron 4 MG Oral Tablet [Zofran] Zofran 4 MG Zofran 4 M G 09/24/2019 12:00:00 AM EDT 1.0 {tablet} active Zo mery 4 MG eCW1 ([facility]) Ondansetron 4 MG Oral Tablet [Zofran] Zofran 4 MG Zofran 4 M G 09/24/2019 12:00:00 AM EDT 1.0 {tablet} active Zo mery 4 MG eCW1 ([facility]) Ondansetron 4 MG Oral Tablet [Zofran] Zofran 4 MG Zofran 4 M G 09/24/2019 12:00:00 AM EDT 1.0 {tablet} active Zo mery 4 MG eCW1 ([facility]) Ondansetron 4 MG Oral Tablet [Zofran] Zofran 4 MG Zofran 4 M G 09/24/2019 12:00:00 AM EDT 1.0 {tablet} active Zo mery 4 MG eCW1 ([facility]) Ondansetron 4 MG Oral Tablet [Zofran] Zofran 4 MG Zofran 4 M G 09/24/2019 12:00:00 AM EDT 1.0 {tablet} active Zo mery 4 MG eCW1 ([facility]) Ondansetron 4 MG Oral Tablet [Zofran] Zofran 4 MG Zofran 4 M G 09/24/2019 12:00:00 AM EDT active 1 tablet eCW1 ([facility]) Ondansetron 4 MG Oral Tablet [Zofran] Zofran 4 MG Zofran 4 M G 09/24/2019 12:00:00 AM EDT 1.0 {tablet} active Zo mery 4 MG eCW1 ([facility]) Ondansetron 4 MG Oral Tablet [Zofran] Zofran 4 MG Zofran 4 M G 09/24/2019 12:00:00 AM EDT 1.0 {tablet} active Zo mery 4 MG eCW1 ([facility]) Insurance Providers Payer name Policy type / Coverage type Policy ID Covered alliance party ID Covered alliance party's relationship to roth Policy Roth Plan Information SHRADDHA [id number] SP [id number] SHRADDHA [place] [id number] S [id number] SHRADDHA [facility] [id number] Unemployed [id number] Medicaid P [id number] S [id number] [place] [id number] S [id number] MEDICAID [id number] SP [id number] ANSI-Medicaid [id number] ANSI-Commercial [id number] SHRADDHA [id number] SP [id number] SHRADDHA [id number] SP [id number] SHRADDHA [id number] SP [id number] ANSI-Medicaid [id number] ANSI-Commercial [id number] SHRADDHA [id number] SP [id number] MEDICAID [id number] SP [id number] SHRADDHA [id number] SP [id number] Medicaid P [id number] S [id number] MEDICAID M [id number] S [id number] SELF PAY ONLY [id number] SP [id number] [place] [id number] S [id number] Medicaid S [id number] S [id number] Managed Care - Community Plan [facility] P [id number] S [id number] D Managed Care [facility] O [id number] S [id number] Medicaid Dental S [id number] S [id number] [facility](MCAID) O [id number] S [id number] UN COMMUNITY PLAN [facility] [id number] SP [id number] SELF PAY UNAVAILABLE SP UNAVAILA BLE Self Pay P na S na [employer] BCBS P [id number] S [id number] [facility] 0000 SP [id number] Medicaid S [id number] S [id number] Managed Care BCBS O na S na Managed Care BCBS S [id number] S [id number] Medicaid S UNAVAILABLE S UNAVAILA BLE Self Pay P UNAVAILABLE S UNAVAILA BLE SELF PAY [id number] SP [id number] HMO BLUE [id number] SP [id number] Problems, Conditions, and Diagnoses Code Display Name Description Problem Type Effective Dates Data Source(s) O99.012 Anemia of Anemia complicating pregnanc y, second trimester Problem 10/05/2019 12:00:00 AM EDT eCW1 ([facility]) O99.012 Anemia of Anemia complicating pregnanc y, second trimester Problem 10/05/2019 12:00:00 AM EDT eCW1 ([facility]) B18.9 [id number] Chronic viral hepatitis, unspecified Prob lenin 09/23/2019 12:00:00 AM EDT eCW1 ([facility]) B18.9 [id number] Chronic viral hepatitis, unspecified Prob lenin 09/23/2019 12:00:00 AM EDT eCW1 ([facility]) Z34.80 care Supervision of other normal P roblem 08/23/2019 12:00:00 AM EST eCW1 ([facility]) Z34.80 care Supervision of other normal P roblem 08/23/2019 12:00:00 AM EST eCW1 ([facility]) Z68.20 Body mass index (BMI) 20.0-20.9, adult B JONATAN MASS INDEX [BMI] 20.0-20.9, ADULT Diagnosis 06/01/2020 03:25:00 PM [facility] E46 Unspecified protein-calorie malnutrition UNSPECIFIED PROTEIN-CALORIE MALNUTRITION Diagnosis 06/01/2020 03:25:00 PM [facility] D64.9 Anemia, unspecified ANEMIA, UNSPECIFIED Diagnosis 1 08/02/2019 03:25:00 PM [facility] F19.10 Other psychoactive substance abuse, unco mplicated OTHER PSYCHOACTIVE SUBSTANCE ABUSE, UNCOMPLICATED Diagnosis 06/01/2020 03:25:00 PM [facility] 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 STIMULANT DEPENDENCE WITH WITHDRAWAL Diagnosis 06/01/2020 03:25:00 PM [facility] B18.2 Chronic viral hepatitis C CHRONIC VIRAL HEPATITIS C Di agnosis 06/01/2020 03:25:00 PM [facility] F43.10 Post-traumatic stress disorder, unspecif ied POST-TRAUMATIC STRESS DISORDER, UNSPECIFIED Diagnosis 06/01/2020 03:25:00 PM [facility] F41.9 Anxiety disorder, unspecified ANXIETY DISORDER, UNSPEC IFIED Diagnosis 06/01/2020 03:25:00 PM [facility] F17.210 Nicotine dependence, cigarettes, uncompl icated NICOTINE DEPENDENCE, CIGARETTES, UNCOMPLICATED Diagnosis 06/01/2020 03:25:00 PM [facility] F32.9 Major depressive disorder, single episod e, unspecified MAJOR DEPRESSIVE DISORDER, SINGLE EPISODE, UNSPECIFIED Diagnosis 06/01/2020 03:25:00 PM [facility] Z53.29 Procedure and treatment not carried out because of patient's decision for other reasons PROC/TRTMT NOT CRD OUT BEC PT DECISION FOR OTH REASONS Diagn osis 06/01/2020 03:25:00 PM [facility] F11.23 Opioid dependence with withdrawal OPIOID DEPENDE NCE WITH WITHDRAWAL Diagnosis 06/01/2020 03:25:00 PM [facility] Surgeries/Procedures Procedure Description Date Indications Data Source(s) Medication Management for Substance Abuse Treatment, N aloxone MEDS MGMT FOR SUBSTANCE ABUSE TREATMENT, NALOXONE 06/01/2020 12:00:00 AM [facility] Individual Counseling for Substance Abuse Treatment, C ontinuing Care INDIV DIRECTOR BROADCAST FOR SUBSTANCE ABUSE TREATMENT, CONTINUING CARE 06/01/2020 12:00:00 AM [facility] Detoxification Services for Substance Abuse Treatment DETOXIFICATION SERVICES FOR SUBSTANCE ABUSE TREATMENT 06/01/2020 12:00:00 AM [facility] OB Visit 09/24/2019 12:00:00 AM EDT e CW1 ([facility]) Results ID Date Data Source [id number] 07/24/2020 02:27:00 AM EST [facility] Name Value Range Interpretation Code Description Data Kena rce(s) Supporting Document(s) SARS coronavirus 2 RNA [Presence] in Res piratory specimen by LAVON with probe detection NEGATIVE [place] This lab was ordered by [facility] a nd reported by [facility]. ID Date Data Source [id number] 07/03/2020 10:13:00 AM [facility] Name Value Range Interpretation Code Description Data Kena rce(s) Supporting Document(s) Respiratory specimen severe acute respir atory syndrome coronavirus 2 (SARS-CoV-2) RNA [place] This lab was ordered by [facility] and reported by . ID Date Data Source [id number] 06/13/2020 08:36:00 AM EST [facility] Name Value Range Interpretation Code Description Data Kena rce(s) Supporting Document(s) Urine Culture [facility]ital ID Date Data Source [id number] 06/13/2020 08:36:00 AM EST [facility] Name Value Range Interpretation Code Description Data Kena rce(s) Supporting Document(s) Amoxicillin/Clavulanic Acid Susc eptible. Indicates for microbiology susceptibilities only. [facility] Cefazolin Susceptible. Indicates for microbiol ogy susceptibilities only. [facility] Cefepime Susceptible. Indicates for microbiol ogy susceptibilities only. [facility] Ceftri[facility] Sus[facility]. Indicates for m icrobiology susceptibilities only. [facility] Ciprofloxacin Susceptible. Ind icates for microbiology susceptibilities only. [facility] Ertapenem Susceptible. Indicates for microbiol ogy susceptibilities only. [facility] Gentamicin Susceptible. Indicates for microbiol ogy susceptibilities only. [facility] Imipenem Susceptible. Indicates for microbiol ogy susceptibilities only. [facility] Meropenem Susceptible. Indicates for microbiol ogy susceptibilities only. [facility] Levofloxacin Susceptible. Indicates for m icrobiology susceptibilities only. [facility] Nitrofurantoin 128 Results entered -- not verified [facility] Pipercillin/Tazobactam Susceptib le. Indicates for microbiology susceptibilities only. [facility] Trimeth/Sulfamethoxazole Suscept ible. Indicates for microbiology susceptibilities only. [facility] ID Date Data Source [id number] 06/06/2020 09:20:00 AM EST [facility] Procedure Performed By: [facility] Laboratory [address] [place] [address] Director: Harsh Wooten MD Procedure Performed By: [facility] Laboratory [address] [place] [address] Director: Harsh Wooten MD QUANTITY: >100,000/mL {KLEBSIELLA PNEUMONIAE} [facility] PNEUMON[facility]ESCT Name Value Range Interpretation Code Description Data Kena rce(s) Supporting Document(s) ID Date Data Source [id number] 06/06/2020 09:20:00 AM EST [facility] Procedure Performed By: [facility] Laboratory [address] [place] [address] Director: Harsh Wooten MD Procedure Performed By: [facility] Laboratory [address] [place] [address] Director: Harsh Wooten MD QUANTITY: >100,000/mL {KLEBSIELLA PNEUMONIAE} KLEBSIELLA PNEUMONIAESCT Name Value Range Interpretation Code Description Data Kena rce(s) Supporting Document(s) Amoxicillin/Clavulanic Acid Susc eptible. Indicates for microbiology susceptibilities only. [facility] Cefazolin Susceptible. Indicates for microbiol ogy susceptibilities only. [facility] Cefepime Susceptible. Indicates for microbiol ogy susceptibilities only. [facility] - [facility] Ceftriaxone Susceptible. Indicates for m icrobiology susceptibilities only. [facility] Ciprofloxacin Susceptible. Ind icates for microbiology susceptibilities only. [facility] Ertapenem Susceptible. Indicates for microbiol ogy susceptibilities only. [facility] Gentamicin Susceptible. Indicates for microbiol ogy susceptibilities only. [facility] Imipenem Susceptible. Indicates for microbiol ogy susceptibilities only. [facility] Meropenem Susceptible. Indicates for microbiol ogy susceptibilities only. [facility] Levofloxacin Susceptible. Indicates for m icrobiology susceptibilities only. [facility] Nitrofurantoin 128 Results entered -- not verified [facility] Pipercillin/Tazobactam Susceptib le. Indicates for microbiology susceptibilities only. [facility] Trimeth/Sulfamethoxazole Suscept ible. Indicates for microbiology susceptibilities only. [facility] ID Date Data Source [id number] 06/03/2020 10:39:00 PM EST [facility] Collected By: Nurse Initials: Time Collected: 0 Name Value Range Interpretation Code Description Data Kena rce(s) Supporting Document(s) Color,Urine Colorl-Dk Y Normal (applies to non-numeric res ults) [facility] Clarity,Urine Clear [facility] Specific [place],Urine 1.005-1.030 Normal (applies to non- numeric results) [facility] pH,Urine 5.0-8.0 Normal (applies to non-numeric resul ts) [facility] Protein,Urine Negative [facility] Glucose,Urine Negative Normal (applies to non-numeric re sults) [facility] Ketones,Urine Negative Normal (applies to non-numeric re sults) [facility] Blood,Urine Negative [facility] Bilirubin,Urine Negative Normal (applies to non-numeric results) [facility] Urobilinogen,Urine 0.2-1.0 Normal (applies to non-numer ic results) [facility] Leukocyte Esterase,Urine Negative Normal (applies to non -numeric results) [facility] Nitrite,Urine Negative [facility] RBC,Urine None Seen [facility] WBC,Urine None Seen [facility] Squamous Cells,Urine None Seen [facility] Bacteria,Urine None Seen [facility] ital ID Date Data Source [id number] 06/13/2020 07:23:00 AM EST [facility] Name Value Range Interpretation Code Description Data Kena rce(s) Supporting Document(s) Urine Culture [facility] ospital ID Date Data Source [id number] 06/13/2020 07:23:00 AM [facility] Name Value Range Interpretation Code Description Data Kena rce(s) Supporting Document(s) Amoxicillin/Clavulanic Acid Susc eptible. Indicates for microbiology susceptibilities only. [facility] Cefazolin Susceptible. Indicates for microbiol ogy susceptibilities only. [facility] Cefepime Susceptible. Indicates for microbiol ogy susceptibilities only. [facility] Ceftriaxone Susceptible. Indicates for m icrobiology susceptibilities only. [facility] Ciprofloxacin Susceptible. Ind icates for microbiology susceptibilities only. [facility] Ertapenem Susceptible. Indicates for microbiol ogy susceptibilities only. [facility] Gentamicin Susceptible. Indicates for microbiol ogy susceptibilities only. [facility] Imipenem Susceptible. Indicates for microbiol ogy susceptibilities only. [facility] Meropenem Susceptible. Indicates for microbiol ogy susceptibilities only. [facility] Levofloxacin Susceptible. Indicates for m icrobiology susceptibilities only. [facility] Nitrofurantoin 128 Results entered -- not verified [facility] Pipercillin/Tazobactam Susceptib le. Indicates for microbiology susceptibilities only. [facility] Trimeth/Sulfamethoxazole Suscept ible. Indicates for microbiology susceptibilities only. [facility] ID Date Data Source [id number] 06/04/2020 10:50:00 AM [facility] Procedure Performed By: [facility] Laboratory [address] [place] [address] Director: Harsh Wooten MD . QUANTITY: >100,000/mL {KLEBSIELLA PNEUMONIAE} KLEBSIELLA PNEUMONIAESCT Name Value Range Interpretation Code Description Data Kena rce(s) Supporting Document(s) ID Date Data Source [id number] 06/04/2020 10:50:00 AM EST [facility] Procedure Performed By: [facility] Laboratory [address] [place] [address] Director: Harsh Wooten MD . QUANTITY: >100,000/mL {KLEBSIELLA PNEUMONIAE} KLEBSIELLA PNEUMONIAESCT Name Value Range Interpretation Code Description Data Kena rce(s) Supporting Document(s) Amoxicillin/Clavulanic Acid Susc eptible. Indicates for microbiology susceptibilities only. [facility] Cefazolin Susceptible. Indicates for microbiol ogy susceptibilities only. [facility] Cefepime Susceptible. Indicates for microbiol ogy susceptibilities only. [facility] ESBL - [facility] Ceftriaxone Susceptible. Indicates for m icrobiology susceptibilities only. [facility] Ciprofloxacin Susceptible. Ind icates for microbiology susceptibilities only. [facility] Ertapenem Susceptible. Indicates for microbiol ogy susceptibilities only. [facility] Gentamicin Susceptible. Indicates for microbiol ogy susceptibilities only. [facility] Imipenem Susceptible. Indicates for microbiol ogy susceptibilities only. [facility] Meropenem Susceptible. Indicates for microbiol ogy susceptibilities only. [facility] Levofloxacin Susceptible. Indicates for m icrobiology susceptibilities only. [facility] Nitrofurantoin 128 Results entered -- not verified [facility] Pipercillin/Tazobactam Susceptib le. Indicates for microbiology susceptibilities only. [facility] Trimeth/Sulfamethoxazole Suscept ible. Indicates for microbiology susceptibilities only. [facility] ID Date Data Source [id number] 06/13/2020 07:23:00 AM [facility] Name Value Range Interpretation Code Description Data Kena rce(s) Supporting Document(s) Chlamydia,Urine Negative Normal (applies to non-numeric results) [facility] Test Performed By: [facility] [address] [place] [address] Director: Yanick Wooten MD . GC Urine Negative Normal (applies to non-numeric resul ts) [facility] Test Performed By: [facility] [address] [place] [address] Director: Yanick Wooten MD . Methodology: Second generation nucleic acid amplification. ID Date Data Source [id number] 06/06/2020 03:19:00 PM [facility] Name Value Range Interpretation Code Description Data Kena rce(s) Supporting Document(s) Chlamydia,Urine result Negative Normal (applies to non-n umeric results) [facility] Test Performed By: [facility] [address] [place] [address] Director: Yanick Wooten MD . GC Urine result Negative Normal (applies to non-numeric results) [facility] Test Performed By: [facility] [address] [place] [address] Director: Yanick Wooten MD . Methodology: Second generation nucleic acid amplification. ID Date Data Source [id number] 06/01/2020 10:55:00 PM [facility] Collected By: Nurse Initials: KT Time Collected: 2054 Collected By: Nurse Initials: KT Time Collected: 2054 Name Value Range Interpretation Code Description Data Kena rce(s) Supporting Document(s) Color,Urine Colorl-Dk Y Normal (applies to non-numeric res ults) [facility] Clarity,Urine Clear Normal (applies to non-numeric re sults) [facility] Specific [place],Urine 1.005-1.030 Normal (applies to non- numeric results) [facility] pH,Urine 5.0-8.0 Normal (applies to non-numeric resul ts) [facility] Protein,Urine Negative Normal (applies to non-numeric re sults) [facility] Glucose,Urine Negative Normal (applies to non-numeric re sults) [facility] Ketones,Urine Negative Normal (applies to non-numeric re sults) [facility] Blood,Urine Negative [facility] Bilirubin,Urine Negative Normal (applies to non-numeric results) [facility] Urobilinogen,Urine 0.2-1.0 Normal (applies to non-numer ic results) [facility] Leukocyte Esterase,Urine Negative Normal (applies to non -numeric results) [facility] Nitrite,Urine Negative Normal (applies to non-numeric re sults) [facility] ID Date Data Source [id number] 06/01/2020 10:55:00 PM [facility] Collected By: Nurse Initials: KT Time Collected: 2054 Collected By: Nurse Initials: KT Time Collected: 2054 Name Value Range Interpretation Code Description Data Kena rce(s) Supporting Document(s) WBC,Urine None Seen [facility] Squamous Cells,Urine None Seen [facility] Bacteria,Urine None Seen [facility] ital ID Date Data Source [id number] 06/01/2020 10:52:00 PM [facility] Name Value Range Interpretation Code Description Data Kena rce(s) Supporting Document(s) UDS Benzodiazepines Screen Negative Normal (applies to n on-numeric results) [facility] UDS Cocaine Screen Negative Normal (applies to non-numer ic results) [facility] UDS Ampetamine Screen Negative [facility] UDS Cannabinoids Screen Negative Normal (applies to non- numeric results) [facility] UDS Opiates Screen Negative Normal (applies to non-numer ic results) [facility] UDS Barbiturates Screen Negative Normal (applies to non- numeric results) [facility] ID Date Data Source [id number] 06/13/2020 07:21:00 AM EST [facility] Test Performed By: [facility] [address] [place] [address] Director: Yanick Wooten MD Test Performed By: [place] [address] Director: Yanick Wooten MD Name Value Range Interpretation Code Description Data Kena rce(s) Supporting Document(s) Hep C Ab-T Test Nonreactive Vaughn [facility] Test Performed By: [place] [address] Director: Yanick Wooten MD Results called 06/01/20 Divina, JAMES MORENO read back information to Nadia Bharat THIS IS A STATE REPORTABLE COMMUNICABLE DISEASE. Note: This patient's sample tests reactive with a high Index >/= 11.00. Samples with high indexes have been shown to repeat positive using a different methodology 95% of the time or greater but <5 of every 100 samples might be false positives. Additional testing for verification of the result can be requested by the physician if necessary. ([facility] [place]NOTE 2[place] MMWR No RR-3. 2003). ID Date Data Source [id number] 06/13/2020 07:21:00 AM [facility] Test Performed By: [facility] [address] [place] [address] Director: Yanick Wooten MD Test Performed By: [place] [address] Director: Yanick Wooten MD Name Value Range Interpretation Code Description Data Kena rce(s) Supporting Document(s) ID Date Data Source [id number] 06/13/2020 07:21:00 AM EST [facility] Test Performed By: [facility] [address] [place] [address] Director: Yanick Wooten MD Test Performed By: [place] [address] Director: Yanick Wooten MD Name Value Range Interpretation Code Description Data Kena rce(s) Supporting Document(s) ID Date Data Source [id number] 06/13/2020 07:21:00 AM [facility] Name Value Range Interpretation Code Description Data Kena rce(s) Supporting Document(s) Hepatitis A Ab,IgG result Normal (applies to no n-numeric results) [facility] Result indicates immunity to hepatitis A infection from either vaccination or past exposure to hepatitis A. False-positive results may be observed in patients with CMV antibodies or heterophilic antibodies. REFERENCE VALUE Unvaccinated: Negative Vaccinated: Positive Test Performed by: [place] [address] Contribution Solicitor: Johnson Davies M.D. Ph.D.; CLIA# [id number] ID Date Data Source [id number] 06/13/2020 07:21:00 AM [facility] Value Range Interpretation Code Description Data Kena rce(s) Supporting Document(s) CPK 72 U/L 26-192 Normal (applies to non-numeric resul ts) [facility] Test Performed By: [facility] Laboratory [address] [place] [address] Director: Yanick Wooten MD ID Date Data Source [id number] 06/03/2020 07:16:00 PM [facility] Name Value Range Interpretation Code Description Data Kena rce(s) Supporting Document(s) Hepatitis A Ab,IgG result Normal (applies to no n-numeric results) [facility] Result indicates immunity to hepatitis A infection from either vaccination or past exposure to hepatitis A. False-positive results may be observed in patients with CMV antibodies or heterophilic antibodies. REFERENCE VALUE Unvaccinated: Negative Vaccinated: Positive Test Performed by: [place] [address] Contribution Solicitor: Johnson Davies M.D. Ph.D.; CLIA# [id number] ID Date Data Source [id number] 06/01/2020 05:00:00 PM EST [facility] Name Value Range Interpretation Code Description Data Kena rce(s) Supporting Document(s) Sodium 138 mmol/L 136-145 Normal (applies to non-numeric resul ts) [facility] Potassium 3.5-5.1 Normal (applies to non-numeric resul ts) [facility] Chloride 103 mmol/L 98-107 Normal (applies to non-numeric resul ts) [facility] Carbon Dioxide CO2 21-32 Normal (applies to non-numer ic results) [facility] Anion Gap 5.0-16.0 Normal (applies to non-numeric resul ts) [facility] BUN 18 mg/dL 7-18 Normal (applies to non-numeric results) [facility] Creatinine,Serum 0.7-1.2 Normal (applies to non-numeric results) [facility] GFR >60 Normal (applies to non-numeric results) [facility] Glucose Level 93 mg/dL 60-99 Normal (applies to non-numeric re sults) [facility] Reference range is only applicable when patient is fasting Note the following drug interference: Sulfasalazine Sulfapyridine Can see falsely depressed Can see falsely elevated result with up to 17% results with up to 11% decrease in measurement increase in measurement Recommend patients be collected for this test prior to administration of either drug. Calcium 8.5-10.1 Normal (applies to non-numeric resul ts) [facility] Bilirubin,Total 0.1-1.9 Normal (applies to non-numeric results) [facility] SGOT(AST) 24 U/L 15-37 Normal (applies to non-numeric resul ts) [facility] Note the following drug interference: Sulfasalazine Sulfapyridine Can see falsely depressed Can see falsely elevated result with up to 10% results with up to 10% decrease in measurement increase in measurement Recommend patients be collected for this test prior to administration of either drug. SGPT(ALT) 29 U/L 12-78 Normal (applies to non-numeric resul ts) [facility] Note the following drug interference: Sulfasalazine Sulfapyridine Can see falsely depressed Can see falsely elevated result with up to 29% results with up to 10% decrease in measurement increase in measurement Recommend patients be collected for this test prior to administration of either drug. Alkaline Phosphatase 75 U/L 38-126 Normal (applies to non-num roseann results) [facility] can increase Alkaline Phosp le vels up to 2 times the normal adult value. Normal values for children and adolescents are 2 to 3 times the normal adult value. Total Protein 6.0-8.2 Normal (applies to non-numeric re sults) [facility] Albumin Level 3.4-5.0 Below low normal [facility] ID Date Data Source [id number] 06/01/2020 05:00:00 PM [facility] Value Range Interpretation Code Description Data Kena rce(s) Supporting Document(s) Bilirubin,Direct 0.05-0.20 Normal (applies to non-numeric results) [facility] ID Date Data Source [id number] 06/01/2020 05:00:00 PM [facility] Value Range Interpretation Code Description Data Kena rce(s) Supporting Document(s) Phosphorus 2.5-4.9 Normal (applies to non-numeric resul ts) [facility] ID Date Data Source [id number] 06/01/2020 05:00:00 PM [facility] Value Range Interpretation Code Description Data Kena rce(s) Supporting Document(s) Magnesium 1.8-2.4 Normal (applies to non-numeric resul ts) [facility] ID Date Data Source [id number] 06/01/2020 05:00:00 PM [facility] Value Range Interpretation Code Description Data Kena rce(s) Supporting Document(s) Thyroid Stimulate Hormone TSH 0.358-3.74 No rmal (applies to non-numeric results) [facility] ID Date Data Source [id number] 06/02/2020 01:27:00 AM [facility] Value Range Interpretation Code Description Data Kena rce(s) Supporting Document(s) CPK result 72 U/L 26-192 Normal (applies to non-numeric resul ts) [facility] Test Performed By: [place] [address] Director: Yanick Wooten MD ID Date Data Source [id number] 06/02/2020 01:27:00 AM [facility] Name Value Range Interpretation Code Description Data Kena rce(s) Supporting Document(s) Hepatitis C Virus Ab result Nonreactive Very abnormal (applies to non-numeric units [facility] Test Performed By: [place] [address] Director: Yanick Wooten MD Results called 06/01/20JAMES Conteh read back information to Nadia Bharat THIS IS A STATE REPORTABLE COMMUNICABLE DISEASE. Note: This patient's sample tests reactive with a high Index >/= 11.00. Samples with high indexes have been shown to repeat positive using a different methodology 95% of the time or greater but <5 of every 100 samples might be false positives. Additional testing for verification of the result can be requested by the physician if necessary. ([facility] [place]NOTE 2] MMWR No RR-3. 2003). called to PATTIE FARR ID Date Data Source [id number] 06/02/2020 01:27:00 AM [facility] Value Range Interpretation Code Description Data Kena rce(s) Supporting Document(s) Hep Bs Ag result T-Test Nonreactive Normal (applies to non -numeric results) [facility] Test Performed By: [place] [address] Director: Yanick Wooten MD ID Date Data Source [id number] 06/02/2020 01:27:00 AM [facility] Value Range Interpretation Code Description Data Kena rce(s) Supporting Document(s) Syphilis Serology result Nonreactive Normal (applies to non-numeric results) [facility] Test Performed By: [place] [address] Director: Yanick Wooten MD ID Date Data Source [id number] 06/01/2020 05:09:00 PM EST [facility] Name Value Range Interpretation Code Description Data Kena rce(s) Supporting Document(s) Ethanol Less than 10.0 Normal (applies to non-numeric r esults) [facility] ID Date Data Source [id number] 06/01/2020 04:40:00 PM EST [facility] Name Value Range Interpretation Code Description Data Kena rce(s) Supporting Document(s) White Blood Count 3.5-10.5 Normal (applies to non-numeri c results) [facility] Red Blood Count 3.90-5.00 Below low normal [facility] Hemoglobin 12.0-15.5 Below low normal [facility]spital Hematocrit 34.9-44.5 Below low normal [facility] Mean Corpuscular Volume 81.2-95.1 Normal (applies to non- numeric results) [facility] Mean Corpuscular Hgb 25.6-32.2 Normal (applies to non-num roseann results) [facility] Mean Corpuscular Hgb Conc 32.0-36.0 Normal (applies to no n-numeric results) [facility] Red Cell Distribution Width 11.9-15.5 Above high normal [facility] Platelet Count 329 x10 3/uL 150-450 Normal (applies to non-numeric results) [facility] Mean Platelet Volume 9.4-12.4 Normal (applies to non-num roseann results) [facility] Neutrophils% (Auto) 31.0-71.0 Normal (applies to non-nume erlinda results) [facility] Lymphocytes% (Auto) 20.0-55.0 Above high normal [facility] Monocytes% (Auto) 4.0-12.0 Normal (applies to non-numeri c results) [facility] Eosinophils% (Auto) 1.0-8.0 Normal (applies to non-nume erlinda results) [facility] Basophils% (Auto) 0.0-2.0 Normal (applies to non-numeri c results) [facility] Immature Granulocytes% (Auto) 0.0-2.0 Normal (wendy lies to non-numeric results) [facility] Neutrophils# (Auto) 1.50-6.20 Normal (applies to non-nume erlinda results) [facility] Lymphocytes# (Auto) 1.20-4.00 Normal (applies to non-nume erlinda results) [facility] Monocytes# (Auto) 0.00-0.90 Normal (applies to non-numeri c results) [facility] Eosinophils# (Auto) 0.00-0.50 Normal (applies to non-nume erlinda results) [facility] Basophils# (Auto) 0.00-0.20 Normal (applies to non-numeri c results) [facility] Immature Granulocytes# (Auto) 0.00-7.00 No rmal (applies to non-numeric results) [facility] ID Date Data Source [id number] 06/01/2020 03:36:00 PM EST [facility] First test? NOEmployed in healthcare? NOSymptomatic per CDC? NOHospitalized? YESICU? NOResident in congregated care? ex usp, [facility] NO? NO Name Value Range Interpretation Code Description Data Kena rce(s) Supporting Document(s) RP Internal Control Passed Normal (applies to non-nume erlinda results) [facility] Adenovirus None Detect Normal (applies to non-numeric resu lts) [facility] Coronavirus 229E None Detect Normal (applies to non-numeri c results) [facility] Coronavirus HKU1 None Detect Normal (applies to non-numeri c results) [facility] Coronavirus NL63 None Detect Normal (applies to non-numeri c results) [facility] Coronavirus OC43 None Detect Normal (applies to non-numeri c results) [facility] SARS-CoV-2 Not Detect Normal (applies to non-numeric resul ts) [facility] Negative results do not preclude SARS-Co V-2 infection and should not be used as the sole basis for treatment or other patient management decisions. Negative results must be combined with clinical observations, patient history, and epidemiological information. Testing was performed using the [employer] real-time nested multiplexed PCR Respiratory Panel 2.1 This test has not been FDA cleared or approved. This test has been authorized by FDA under an (Emergency Use Authorization) EUA for use by authorized laboratories. This test is only authorized for the duration of the declaration that circumstances exist justifying the authorization of emergency use of in vitro diagnostic tests for detection and/or diagnosis of SARS-CoV-2. Fact sheets for this EUA assay can be found at the following links: General: https://www.cdc.gov/COVID19 Healthcare Professionals: https://www.cdc.gov/coronavirus/2019-nCoV/guidance-hcp.html THIS IS A STATE REPORTABLE COMMUNICABLE DISEASE. Human Metapneumovirus None Detect Normal (applies to non-n umeric results) [facility] Rhino/Enterovirus None Detect Normal (applies to non-numer ic results) [facility] Influenza A None Detect Normal (applies to non-numeric res ults) [facility] Influenza B None Detect Normal (applies to non-numeric res ults) [facility] Parainfluenza Virus 1 None Detect Normal (applies to non-n umeric results) [facility] Parainfluenza Virus 2 None Detect Normal (applies to non-n umeric results) [facility] Parainfluenza Virus 3 None Detect Normal (applies to non-n umeric results) [facility] Parainfluenza Virus 4 None Detect Normal (applies to non-n umeric results) [facility] Respiratory Syncytial Virus None Detect Norm al (applies to non-numeric results) [facility] Bordetella Parapertussis None Detect Normal (applies to non-numeric results) [facility] Bordetella Pertussis None Detect Normal (applies to non-nu meric results) [facility] Chlamydia Pneumoniae None Detect Normal (applies to non-nu meric results) [facility] Mycoplasma Pneumoniae None Detect Normal (applies to non-n umeric results) [facility] Methodology: Multiplexed PCR Refer ence Range: None detected ID Date Data Source [id number] 11/16/2019 12:00:00 AM EDT [facility] Brittany Solano Cnm Patient Name: RICARDA [id number] Ibeth Burns [facility] 1995[facility] [place] [address] Date of Exam: 11/16/2019PH#: Fax: [phone] EXAM: US OB, FOLLOW-UP (GROWTH, ORGAN SYSTEMS)/FETUSCLINICAL INFORMATION: Followup anatomy.LMP: 06/16/2019GA by LMP: 21 weeks 6 days, JAGDISH: 03/22/2020Cervical Length: 3.9 cmFetal Heart Rate: 159 BPMType of Gestation: SingletonIntrauterine in vertex presentation.Placental location: Anterior, Grade 1Placental maturity: Grade 1Amniotic fluid volume: NormalFetal heart and facial profile are well seen on today's exam.Accredited by the [employer] in Obstetrical Ultrasound.JACK Winn/Violette ramos for referring KRYSTINA HORNE to our office. Electronically Signed - TYSON IRENE DO 11/16/19 16:58 Name Value Range Interpretation Code Description Data Kena rce(s) Supporting Document(s) Procedure Social History Code Duration Value Status Description Data Source(s ) Smoking 01/17/2020 12:00:00 AM EDT Current Smoker completed Curre nt Smoker eCW1 ([facility]) Smoking 01/17/2020 12:00:00 AM EDT Current Smoker completed Curre nt Smoker eCW1 ([facility]) Smoking 01/17/2020 12:00:00 AM EDT Current Smoker completed Curre nt Smoker eCW1 ([facility]) Smoking 12/03/2019 12:00:00 AM EDT Current Smoker completed Curre nt Smoker eCW1 ([facility]) Smoking 12/03/2019 12:00:00 AM EDT Current Smoker completed Curre nt Smoker eCW1 ([facility]) Smoking 12/03/2019 12:00:00 AM EDT Current Smoker completed Curre nt Smoker eCW1 ([facility]) Smoking 12/03/2019 12:00:00 AM EDT Current Smoker completed Curre nt Smoker eCW1 ([facility]) Vital Signs ID Date Data Source UNK Name Value Range Interpretation Code Description Data Source(s) Diastolic blood pressure 58 mm[Hg] 58 mm[Hg] eCW1 ([facility]) Systolic blood pressure 108 mm[Hg] 108 mm[Hg] e CW1 ([facility]) Body mass index (BMI) [Ratio] 24.714 kg/m2 24.7 14 kg/m2 W1 ([facility]) Body height 61 [in_i] 61 [in_i] eCW1 ([facility]) Body weight 130.8 [lb_av] 130.8 [lb_av] eCW1 ([facility]) Diastolic blood pressure 54 mm[Hg] 54 mm[Hg] eCW1 ([facility]) Systolic blood pressure 114 mm[Hg] 114 mm[Hg] e CW1 ([facility]) Body mass index (BMI) [Ratio] 24.563 kg/m2 24.5 63 kg/m2 eCW1 ([facility]) Body height 61 [in_i] 61 [in_i] eCW1 ([facility]) Body weight 130 [lb_av] 130 [lb_av] eCW1 ([facility]) Diastolic blood pressure 60 mm[Hg] 60 mm[Hg] eCW1 ([facility]) Systolic blood pressure 102 mm[Hg] 102 mm[Hg] e CW1 ([facility]) Body mass index (BMI) [Ratio] 24.79 kg/m2 24.79 kg/m2 eCW1 ([facility]) Body height 61 [in_i] 61 [in_i] eCW1 ([facility]) Body weight 131.2 [lb_av] 131.2 [lb_av] eCW1 ([facility]) Diastolic blood pressure 68 mm[Hg] 68 mm[Hg] eCW1 ([facility]) Systolic blood pressure 102 mm[Hg] 102 mm[Hg] e CW1 ([facility]) Body mass index (BMI) [Ratio] 23.052 kg/m2 23.0 52 kg/m2 W1 ([facility]) Body height 61 [in_i] 61 [in_i] eCW1 ([facility]) Body weight 122.0 [lb_av] 122.0 [lb_av] eCW1 ([facility]) Diastolic blood pressure 60 mm[Hg] 60 mm[Hg] eCW1 ([facility]) Systolic blood pressure 100 mm[Hg] 100 mm[Hg] e CW1 ([facility]) Body mass index (BMI) [Ratio] 22.371 kg/m2 22.3 71 kg/m2 W1 ([facility]) Body height 61 [in_us] 61 [in_us] eCW1 ([facility]) Body weight Measured 118.4 [lb_av] 118.4 [lb_av ] eCW1 ([facility]) Diastolic blood pressure 66 mm[Hg] 66 mm[Hg] eCW1 ([facility]) Systolic blood pressure 108 mm[Hg] 108 mm[Hg] e CW1 ([facility]) Body mass index (BMI) [Ratio] 23.052 kg/m2 23.0 52 kg/m2 W1 ([facility]) Body height 61 [in_us] 61 [in_us] eCW1 ([facility]) Body weight Measured 122 [lb_av] 122 [lb_av] eC W1 ([facility]) ID Date Data Source [id number] 06/13/2020 08:36:00 AM [facility] Name Value Range Interpretation Code Description Data Source(s) Weight (Calculated Kilograms) 67.59 67.59 [facility] Height (Calculated Centimeters) 154.94 154. 94 [facility] Body Mass Index (BMI) 28.1 28.1 [facility] ID Date Data Source [id number] 06/13/2020 07:23:00 AM [facility] Name Value Range Interpretation Code Description Data Source(s) Weight (Calculated Kilograms) 67.59 67.59 [facility] Height (Calculated Centimeters) 154.94 154. 94 [facility] Body Mass Index (BMI) 28.1 28.1 [facility] ID Date Data Source [id number] 06/13/2020 07:21:00 AM [facility] Name Value Range Interpretation Code Description Data Source(s) Weight (Calculated Kilograms) 67.59 67.59 [facility] Height (Calculated Centimeters) 154.94 154. 94 [facility] Body Mass Index (BMI) 28.1 28.1 [facility] ID Date Data Source [id number] 06/05/2020 07:53:00 AM EST [facility] Name Value Range Interpretation Code Description Data Source(s) Weight Measurement Method 1 1 [facility] Weight (Calculated Kilograms) 48.99 48.99 [facility] Weight 1728 1728 [facility] pital Temperature Source 7 7 [facility] Temperature 97.4 97.4 [facility] Respiratory Effort 1 1 [facility] Respiratory Rate 16 16 [facility] Pulse Assessment Method 1 1 [facility] 84 [facility] Height (Calculated Centimeters) 156.21 156. 21 [facility] Height 61.5 61.5 [facility] Blood Pressure 112/64 112/64 [facility] Body Mass Index (BMI) 20.0 20.0 [facility] Weight Measurement Method 1 1 [facility] Weight (Calculated Kilograms) 48.99 48.99 [facility] Weight 1728 1728 [facility] pital Temperature Source 7 7 [facility] Temperature 97.4 97.4 [facility] Res[facility] Effort 1 1 [facility] Respiratory Rate 16 16 [facility] Pulse Assessment Method 1 1 [facility] Pulse Rate 84 84 [facility] pital Height (Calculated Centimeters) 156.21 156. 21 [facility] Height 61.5 61.5 [facility] Blood Pressure 112/64 112/64 [facility] Body Mass Index (BMI) 20.0 20.0 [facility] Weight Measurement Method 1 1 [facility] Weight (Calculated Kilograms) 48.99 48.99 [facility] Weight 1728 1728 [facility] pital Temperature Source 7 7 [facility] Temperature 97.4 97.4 [facility] Respiratory Effort 1 1 [facility] Respiratory Rate 16 16 [facility] Pulse Assessment Method 1 1 [facility] Pulse Rate 84 84 [facility] pital Height (Calculated Centimeters) 156.21 156. 21 [facility] Height 61.5 61.5 [facility] Blood Pressure 112/64 112/64 [facility] Body Mass Index (BMI) 20.0 20.0 [facility] Weight Measurement Method 1 1 [facility] Weight (Calculated Kilograms) 48.99 48.99 [facility] Weight 1728 1728 [facility] pital Temperature Source 7 7 [facility] Temperature 97.4 97.4 [facility] Respiratory Effort 1 1 [facility] Respiratory Rate 16 16 [facility] Pulse Assessment Method 1 1 [facility] Pulse Rate 84 84 [facility] pital Height (Calculated Centimeters) 156.21 156. 21 [facility] Height 61.5 61.5 [facility] Blood Pressure 112/64 112/64 [facility] Body Mass Index (BMI) 20.0 20.0 [facility] Weight Measurement Method 1 1 [facility] Weight (Calculated Kilograms) 48.99 48.99 [facility] Weight 1728 1728 [facility] pital Temperature Source 1 1 [facility] Temperature 98.9 98.9 [facility] sp[facility] Respiratory Effort 1 1 [facility] Respiratory Rate 17 17 [facility] Pulse Assessment Method 4 4 [facility] Pulse Rate 83 83 [facility] pital Height (Calculated Centimeters) 156.21 156. 21 [facility] Height 61.5 61.5 [facility] pital Blood Pressure 103/62 103/62 [facility] Body Mass Index (BMI) 20.0 20.0 [facility] Weight Measurement Method 1 1 [facility] Weight (Calculated Kilograms) 48.99 48.99 [facility] Weight 1728 1728 [facility] pital Temperature Source 7 7 [facility] Temperature 97.8 97.8 [facility] spital Respiratory Effort 1 1 [facility] Respiratory Rate 18 18 [facility] Pulse Assessment Method 4 4 [facility] Pulse Rate 88 88 [facility] pital Height (Calculated Centimeters) 156.21 156. 21 [facility].5 [facility].5 [facility] 99/67 99/67 [facility] Body Mass Index (BMI) 20.0 20.0 [facility] Weight (Calculated Kilograms) 65.50 65.50 [facility] Height (Calculated Centimeters) 154.94 154. 94 [facility] Body Mass Index (BMI) 27.3 27.3 [facility] Patient Treatment Plan of Care Planned Activity Planned Date Details Description Data Source (s) Ondansetron 4 MG Oral Tablet [Zofran] 09/24/2019 12:00:00 AM EDT eCW1 ([facility])
--- OUTSIDE RECORDS SUMMARY | 2020-07-26 13:54 | CCD ---
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 Name Role Phone Radha Flores MD Unavailable [...] Unavailable Unavailable Patricia Sargent MD Unavailable Unavailable Patrciia Sargent MD Unavailable Unavailable Patricia Sargent MD [...] Unavailable Sargent, Patricia Moise MD Unavailable Unavailable Saregnt, Patricia Moise MD Unavailable Unavailable Sargent, Patricia Moise MD Unavailable Unavailable Sargent, Patricia Mosie MD Unavailable Unavailable Sargent, Patricia Moise MD Unavailable Unavailable Sargent, Patricia Moise MD Unavailable Unavailable Sargent, Patricia Moise MD Unavailable Unavailable Sargent, Patricia Moise MD Unavailable Unavailable Sargent, Patricia Moise MD Unavailable Unavailable Sargent, Patricia Moies MD Unavailable Unavailable Sargent, Patricia Moise MD [...] is protected by Article 27-F of the [place] Public Health law. If you continue you may have access to information: Regarding HIV / AIDS; Provided by facilities licensed or operated by the [facility] Office of Mental Health; or Provided by the [facility] Office for People With Developmental Disabilities. If such information is present, then the following [facility] mandated warning applies: This information has [...] law may result in a fine or mcc sentence or both. A general authorization for the release of medical or other information is NOT sufficient authorization for further disc losure. Encounters Encounter Providers Location Date Indications Data Source(s ) Outpatient [facility] 06/04/2020 02:19:00 PM [facility] Outpatient [facility] 06/02/2020 10:11:00 AM [facility] Outpatient [facility] 06/01/2020 07:55:00 PM [facility] Inpatient Attender: Tyler Flores MDAt tender: TYLER FLORES MDAdmitter: TYLER FLORES MD [facility] 06/01/2020 03:25:00 PM EST - 06/04/2020 08:06:00 AM [facility] F1920 [facility] F1920 Patient discharged. Unknown [address] [facility] [address] 04/20/2020 12:00:00 AM EDT eCW1 ([facility]) ( ESTOB) [facility] OB [address] [place] [address] 01/17/2020 12:00:00 AM EDT eCW1 ([facility]) Outpatient Attender: Jose Maria Sargent MD FP 01/11/2020 04:30:04 PM EDT [facility] ( ESTOB) [facility] OB [address] [place] [address] 12/23/2019 12:00:00 AM EDT eCW1 ([facility]) Outpatient Attender: Jose Maria Sargent MD FP 12/07/2019 07:37:45 PM EDT [facility] [address] [place] [address] 12/03/2019 12:00:00 AM EDT eCW1 ([facility]) Outpatient Attender: Jose Maria TOLEDO 11/27/2019 12:11:18 AM EDT [facility] Unknown [address] [facility] [address] 11/20/2019 12:00:00 AM EDT eCW1 ([facility]) [facility] [address] [place] [address] 11/20/2019 12:00:00 AM EDT eCW1 (Critical access hospital) [facility] [address] [place] [address] 11/20/2019 12:00:00 AM EDT eCW1 (Critical access hospital) Outpatient Referrer: BRITTANY SOLANO CNM 11/16/2019 01:36:00 PM EDT [facility] Outpatient Referrer: BRITTANY SOLANO CNM 11/16/2019 01:17:00 PM EDT [facility] [place] [address] [facility] [address] 11/13/2019 12:00:00 AM EDT eCW1 ([facility]) [facility] [address] [place] [address] 11/13/2019 12:00:00 AM EDT eCW1 (Critical access hospital) Outpatient Referrer: BRITTANY SOLANO CNM 11/10/2019 03:32:00 PM EDT [facility] Outpatient Referrer: BRITTANY SOLANO CNM 11/10/2019 01:31:00 PM EDT [facility] Outpatient Referrer: BRITTANY SOLANO CNM 11/08/2019 11:50:00 AM EDT [facility] Outpatient 11/08/2019 11:47:00 AM EDT [facility] ([facility] ESTOB) [facility] [address] [place] [address] 11/05/2019 12:00:00 AM EDT eCW1 ([facility]) [facility] [address] [place] [address] 10/05/2019 12:00:00 AM EDT eCW1 (Critical access hospital) [facility] [address] [place] [address] 09/24/2019 12:00:00 AM EDT eCW1 (Critical access hospital) [facility] [address] [place] [address] 08/24/2019 12:00:00 AM EST eCW1 (Critical access hospital) Outpatient 07/23/2019 01:49:00 PM EST [facility] Medications Medication Brand Name Start Date Product Form Dose Route Admi nistrative Instructions Pharmacy Instructions Status Indications Reaction Description Data Source(s) Cyclobenzaprine hydrochloride 10 MG Oral Tablet Cyclob enzaprine HCl 10 MG Cyclobenzaprine HCl 10 MG 12/23/2019 12:00:00 AM EDT 1.0 {tablet} active Cyclobenzaprine HCl 10 MG eCW1 ( [facility]) Cyclobenzaprine hydrochloride 10 MG Oral Tablet Cyclob enzaprine HCl 10 MG Cyclobenzaprine HCl 10 MG 12/23/2019 12:00:00 AM EDT 1.0 {tablet} active Cyclobenzaprine HCl 10 MG eCW1 ( [facility]) Cyclobenzaprine hydrochloride 10 MG Oral Tablet Cyclob enzaprine HCl 10 MG Cyclobenzaprine HCl 10 MG 12/23/2019 12:00:00 AM EDT 1.0 {tablet} active Cyclobenzaprine HCl 10 MG eCW1 ( [facility]) ferrous sulfate 325 MG Oral Tablet Ferrous Sulfate 325 (65 Fe) MG Ferrous Sulfate 325 (65 Fe) MG 10/05/2019 12:00:00 AM EDT 1.0 {tablet} suspended Ferrous Sulfate 325 (65 Fe) MG e CW1 ([facility]) ferrous sulfate 325 MG Oral Tablet Ferrous Sulfate 325 (65 Fe) MG Ferrous Sulfate 325 (65 Fe) MG 10/05/2019 12:00:00 AM EDT 1.0 {tablet} active Ferrous Sulfate 325 (65 Fe) MG eCW1 ([facility]) ferrous sulfate 325 MG Oral Tablet Ferrous Sulfate 325 (65 Fe) MG Ferrous Sulfate 325 (65 Fe) MG 10/05/2019 12:00:00 AM EDT 1.0 {tablet} suspended Ferrous Sulfate 325 (65 Fe) MG e CW1 ([facility]) ferrous sulfate 325 MG Oral Tablet Ferrous Sulfate 325 (65 Fe) MG Ferrous Sulfate 325 (65 Fe) MG 10/05/2019 12:00:00 AM EDT 1.0 {tablet} active Ferrous Sulfate 325 (65 Fe) MG eCW1 ([facility]) ferrous sulfate 325 MG Oral Tablet Ferrous Sulfate 325 (65 Fe) MG Ferrous Sulfate 325 (65 Fe) MG 10/05/2019 12:00:00 AM EDT 1.0 {tablet} suspended Ferrous Sulfate 325 (65 Fe) MG e CW1 ([facility]) ferrous sulfate 325 MG Oral Tablet Ferrous Sulfate 325 (65 Fe) MG Ferrous Sulfate 325 (65 Fe) MG 10/05/2019 12:00:00 AM EDT 1.0 {tablet} active Ferrous Sulfate 325 (65 Fe) MG eCW1 ([facility]) ferrous sulfate 325 MG Oral Tablet Ferrous Sulfate 325 (65 Fe) MG Ferrous Sulfate 325 (65 Fe) MG 10/05/2019 12:00:00 AM EDT 1.0 {tablet} active Ferrous Sulfate 325 (65 Fe) MG eCW1 ([facility]) Ondansetron 4 MG Oral Tablet [Zofran] Zofran 4 MG Zofran 4 M G 09/24/2019 12:00:00 AM EDT 1.0 {tablet} active Zo mery 4 MG eCW1 ([facility]) Ondansetron 4 MG Oral Tablet [Zofran] Zofran 4 MG Zofran 4 M G 09/24/2019 12:00:00 AM EDT 1.0 {tablet} active Zo mery 4 MG eCW1 ([facility]) Ondansetron 4 MG Oral Tablet [Zofran] Zofran 4 MG Zofran 4 M G 09/24/2019 12:00:00 AM EDT 1.0 {tablet} active Zo mery 4 MG eCW1 ([facility]) Ondansetron 4 MG Oral Tablet [Zofran] Zofran 4 MG Zofran 4 M G 09/24/2019 12:00:00 AM EDT 1.0 {tablet} active Zo mery 4 MG eCW1 ([facility]) Ondansetron 4 MG Oral Tablet [Zofran] Zofran 4 MG Zofran 4 M G 09/24/2019 12:00:00 AM EDT 1.0 {tablet} active Zo mery 4 MG eCW1 ([facility]) Ondansetron 4 MG Oral Tablet [Zofran] Zofran 4 MG Zofran 4 M G 09/24/2019 12:00:00 AM EDT active 1 tablet eCW1 ([facility]) Ondansetron 4 MG Oral Tablet [Zofran] Zofran 4 MG Zofran 4 M G 09/24/2019 12:00:00 AM EDT 1.0 {tablet} active Zo mery 4 MG eCW1 ([facility]) Ondansetron 4 MG Oral Tablet [Zofran] Zofran 4 MG Zofran 4 M G 09/24/2019 12:00:00 AM EDT 1.0 {tablet} active Zo mery 4 MG eCW1 ([facility]) Insurance Providers Payer name Policy type / Coverage type Policy ID Covered libertarian ID Covered libertarian's relationship to roth Policy Roth Plan Information SHRADDHA [id number] SP [id number] [place] [id number] S [id number] SHRADDHA [facility] [id number] Unemployed [id number] Medicaid P [id number] S [id number] [place] [id number] S [id number] MEDICAID [id number] SP [id number] ANSI-Medicaid [id number] ANSI-Commercial [id number] SHRADDHA [id number] SP [id number] SHRADDHA [id number] SP [id number] SHRADDHA [id number] SP [id number] ANSI-Medicaid [id number] ANSI-Commercial [id number] SHRADDHA [id number] SP [id number] MEDICAID [id number] SP [id number] SHRADDHA [id number] SP [id number] Medicaid P [id number] S [id number] MEDICAID M [id number] SELF PAY ONLY [id number] SP [id number] [place] [id number] S [id number] Medicaid S [id number] S [id number] Managed Care - Community Plan [facility] P [id number] S [id number] D Managed Care [facility] O [id number] S [id number] Medicaid Dental S [id number] S [id number] [facility](MCAID) O [id number] S [id number] UN COMMUNITY PLAN [facility] [id number] SP [id number] SELF PAY UNAVAILABLE SP UNAVAILA BLE Self Pay P na S na EXCELLUS BCBS P [id number] S [id number] [facility] DEP 0000 SP 0000 Medicaid S [id number] S [id number] Managed Care BCBS O na S na Managed Care BCBS S [id number] S [id number] Medicaid S UNAVAILABLE S UNAVAILA BLE Self Pay P UNAVAILABLE S UNAVAILA BLE SELF PAY [id number] SP [id number] HMO BLUE [id number] SP [id number] Problems, Conditions, and Diagnoses Code Display Name Description Problem Type Effective Dates Data Source(s) O99.012 Anemia of Anemia complicating pregnanc y, second trimester Problem 10/05/2019 12:00:00 AM EDT eCW1 ([facility]) O99.012 Anemia of Anemia complicating pregnanc y, second trimester Problem 10/05/2019 12:00:00 AM EDT eCW1 ([facility]) B18.9 [id number] Chronic viral hepatitis, unspecified Prob lenin 09/23/2019 12:00:00 AM EDT eCW1 ([facility]) B18.9 [id number] Chronic viral hepatitis, unspecified Prob lenin 09/23/2019 12:00:00 AM EDT eCW1 ([facility]) Z34.80 care Supervision of other normal P roblem 08/23/2019 12:00:00 AM EST eCW1 ([facility]) Z34.80 care Supervision of other normal P roblem 08/23/2019 12:00:00 AM EST eCW1 ([facility]) Z68.20 Body mass index (BMI) 20.0-20.9, adult B JON[place]AN M[place] INDEX [BMI] 20.0-20.9, ADULT Diagnosis 06/01/2020 03:25:00 PM [facility] spital E46 Unspecified protein-calorie malnutrition UNSPECIFIED PROTEIN-CALORIE MALNUTRITION Diagnosis 06/[facility] Anemia, unspecified ANEMIA, UNSPECIFIED Diagnosis 1 08/02/2019 03:25:00 PM [facility] F19.10 Other psychoactive substance abuse, unco mplicated OTHER PSYCHOACTIVE SUBSTANCE ABUSE, UNCOMPLICATED Diagnosis 06/01/2020 03:25:00 PM [facility] 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 STIMULANT DEPENDENCE WITH WITHDRAWAL Diagnosis 06/01/2020 03:25:00 PM [facility] spital B18.2 Chronic viral hepatitis C CHRONIC VIRAL HEPATITIS C Di agnosis 06/01/2020 03:25:00 PM [facility] F43.10 Post-traumatic stress disorder, unspecif ied POST-TRAUMATIC STRESS DISORDER, UNSPECIFIED Diagnosis 06/01/2020 03:25:00 PM [facility] F41.9 Anxiety disorder, unspecified ANXIETY DISORDER, UNSPEC IFIED Diagnosis 06/01/2020 03:25:00 PM [facility] F17.210 Nicotine dependence, cigarettes, uncompl icated NICOTINE DEPENDENCE, CIGARETTES, UNCOMPLICATED Diagnosis 06/01/2020 03:25:00 PM [facility] F32.9 Major depressive disorder, single episod e, unspecified MAJOR DEPRESSIVE DISORDER, SINGLE EPISODE, UNSPECIFIED Diagnosis 06/01/2020 03:25:00 PM [facility] Z53.29 Procedure and treatment not carried out because of patient's decision for other reasons PROC/TRTMT NOT CRD OUT BEC PT DECISION FOR OTH REASONS Diagn osis 06/01/2020 03:25:00 PM [facility] F11.23 Opioid dependence with withdrawal OPIOID DEPENDE NCE WITH WITHDRAWAL Diagnosis 06/01/2020 03:25:00 PM [facility] Surgeries/Procedures Procedure Description Date Indications Data Source(s) Medication Management for Substance Abuse Treatment, N aloxone MEDS MGMT FOR SUBSTANCE ABUSE TREATMENT, NALOXONE 06/01/2020 12:00:00 AM [facility] Individual Counseling for Substance Abuse Treatment, C ontinuing Care INDIV DINING CAR STEWARD FOR SUBSTANCE ABUSE TREATMENT, CONTINUING CARE 06/01/2020 12:00:00 AM [facility] Detoxification Services for Substance Abuse Treatment DETOXIFICATION SERVICES FOR SUBSTANCE ABUSE TREATMENT 06/01/2020 12:00:00 AM [facility] OB Visit 09/24/2019 12:00:00 AM EDT e CW1 ([facility]) Results ID Date Data Source [id number] 07/24/2020 02:27:00 AM EST [facility] Name Value Range Interpretation Code Description Data Kena rce(s) Supporting Document(s) SARS coronavirus 2 RNA [Presence] in Res piratory specimen by LAVON with probe detection NEGATIVE [place] This lab was ordered by [facility] a nd reported by [facility]. ID Date Data Source [id number] 07/03/2020 10:13:00 AM EST [facility] Name Value Range Interpretation Code Description Data Kena rce(s) Supporting Document(s) Respiratory specimen severe acute respir atory syndrome coronavirus 2 (SARS-CoV-2) RNA [place]OH This lab was ordered by [facility] and reported by . ID Date Data Source [id number] 06/13/2020 08:36:00 AM EST [facility] Name Value Range Interpretation Code Description Data Kena rce(s) Supporting Document(s) Urine Culture [facility] ospital ID Date Data Source [id number] 06/13/2020 08:36:00 AM EST [facility] Name Value Range Interpretation Code Description Data Kena rce(s) Supporting Document(s) Amoxicillin/Clavulanic Acid Susc eptible. Indicates for microbiology susceptibilities only. [facility] Cefazolin Susceptible. Indicates for microbiol ogy susceptibilities only. [facility] Cefepime Susceptible. Indicates for microbiol ogy susceptibilities only. [facility] Ceftriaxone Susceptible. Indicates for m icrobiology susceptibilities only. [facility] Ciprofloxacin Susceptible. Ind icates for microbiology susceptibilities only. [facility] Ertapenem Susceptible. Indicates for microbiol ogy susceptibilities only. [facility] Gentamicin Susceptible. Indicates for microbiol ogy susceptibilities only. [facility] Imipenem Susceptible. Indicates for microbiol ogy susceptibilities only. [facility] Meropenem Susceptible. Indicates for microbiol ogy susceptibilities only. [facility] Levofloxacin Susceptible. Indicates for m icrobiology susceptibilities only. [facility] Nitrofurantoin 128 Results entered -- not verified [facility] Pipercillin/Tazobactam Susceptib le. Indicates for microbiology susceptibilities only. [facility] Trimeth/Sulfamethoxazole Suscept ible. Indicates for microbiology susceptibilities only. [facility] ID Date Data Source [id number] 06/06/2020 09:20:00 AM EST [facility] Procedure Performed By: [facility] [address] [place] [address] Director: Harsh Wooten MD Procedure Performed By: [facility] [address] [place] [address] Director: Harsh Wooten MD QUANTITY: >100,000/mL {KLEBSIELLA PNEUMONIAE} [facility] Name Value Range Interpretation Code Description Data Kena rce(s) Supporting Document(s) ID Date Data Source [id number] 06/06/2020 09:20:00 AM EST [facility] Procedure Performed By: [facility] [address] [place] [address] Director: Harsh Wooten MD Procedure Performed By: [facility] [address] [place] [address] Director: Harsh Wooten MD QUANTITY: >100,000/mL {KLEBSIELLA PNEUMONIAE} [facility] Name Value Range Interpretation Code Description Data Kena rce(s) Supporting Document(s) Amoxicillin/Clavulanic Acid Susc eptible. Indicates for microbiology susceptibilities only. [facility] Cefazolin Susceptible. Indicates for microbiol ogy susceptibilities only. [facility] Cefepime Susceptible. Indicates for microbiol ogy susceptibilities only. [facility] ESBL - [facility] Ceftriaxone Susceptible. Indicates for m icrobiology susceptibilities only. [facility] Ciprofloxacin Susceptible. Ind icates for microbiology susceptibilities only. [facility] Ertapenem Susceptible. Indicates for microbiol ogy susceptibilities only. [facility] Gentamicin Susceptible. Indicates for microbiol ogy susceptibilities only. [facility] Imipenem Susceptible. Indicates for microbiol ogy susceptibilities only. [facility] Meropenem Susceptible. Indicates for microbiol ogy susceptibilities only. [facility] Levofloxacin Susceptible. Indicates for m icrobiology susceptibilities only. [facility] Nitrofurantoin 128 Results entered -- not verified [facility] Pipercillin/Tazobactam Susceptib le. Indicates for microbiology susceptibilities only. [facility] Trimeth/Sulfamethoxazole Suscept ible. Indicates for microbiology susceptibilities only. [facility] ID Date Data Source [id number] 06/03/2020 10:39:00 PM EST [facility] Collected By: Nurse Initials: Time Collected: 0 Name Value Range Interpretation Code Description Data Kena rce(s) Supporting Document(s) Color,Urine Colorl-Dk Y Normal (applies to non-numeric res ults) [facility] Clarity,Urine Clear [facility] Specific [facility],Urine 1.005-1.030 Normal (applies to non- numeric results) [facility] pH,Urine 5.0-8.0 Normal (applies to non-numeric resul ts) [facility] Protein,[facility] Negative [facility] Glucose,Urine Negative Normal (applies to non-numeric re sults) [facility] Ketones,Urine Negative Normal (applies to non-numeric re sults) [facility] Blood,Urine Negative [facility] Bilirubin,Urine Negative Normal (applies to non-numeric results) [facility] Urobilinogen,Urine 0.2-1.0 Normal (applies to non-numer ic results) [facility] Leukocyte Esterase,Urine Negative Normal (applies to non -numeric results) [facility] Nitrite,Urine Negative [facility] RBC,Urine None Seen [facility] WBC,Urine None Seen [facility] Squamous Cells,Urine None Seen [facility] Bacteria,Urine None Seen [facility] ital ID Date Data Source [id number] 06/13/2020 07:23:00 AM EST [facility] Hospital Name Value Range Interpretation Code Description Data Kena rce(s) Supporting Document(s) Urine Culture [facility] ospital ID Date Data Source [id number] 06/13/2020 07:23:00 AM [facility] Name Value Range Interpretation Code Description Data Kena rce(s) Supporting Document(s) Amoxicillin/Clavulanic Acid Susc eptible. Indicates for microbiology susceptibilities only. [facility] Cefazolin Susceptible. Indicates for microbiol ogy susceptibilities only. [facility] Cefepime Susceptible. Indicates for microbiol ogy susceptibilities only. [facility] Ceftriaxone Susceptible. Indicates for m icrobiology susceptibilities only. [facility] Ciprofloxacin Susceptible. Ind icates for microbiology susceptibilities only. [facility] Ertapenem Susceptible. Indicates for microbiol ogy susceptibilities only. [facility] Gentamicin Susceptible. Indicates for microbiol ogy susceptibilities only. [facility] Imipenem Susceptible. Indicates for microbiol ogy susceptibilities only. [facility] Meropenem Susceptible. Indicates for microbiol ogy susceptibilities only. [facility] Levofloxacin Susceptible. Indicates for m icrobiology susceptibilities only. [facility] Nitrofurantoin 128 Results entered -- not verified [facility] Pipercillin/Tazobactam Susceptib le. Indicates for microbiology susceptibilities only. [facility] Trimeth/Sulfamethoxazole Suscept ible. Indicates for microbiology susceptibilities only. [facility] ID Date Data Source [id number] 06/04/2020 10:50:00 AM EST [facility] Procedure Performed By: [facility] [address] [place] [address] Director: Harsh Wooten MD . QUANTITY: >100,000/mL {KLEBSIELLA PNEUMONIAE} [facility] Name Value Range Interpretation Code Description Data Kena rce(s) Supporting Document(s) ID Date Data Source [id number] 06/04/2020 10:50:00 AM EST [facility] Procedure Performed By: [facility] [address] [place] [address] Director: Harsh Wooten MD . QUANTITY: >100,000/mL {KLEBSIELLA PNEUMONIAE} [facility] Name Value Range Interpretation Code Description Data Kena rce(s) Supporting Document(s) Amoxicillin/Clavulanic Acid Susc eptible. Indicates for microbiology susceptibilities only. [facility] Cefazolin Susceptible. Indicates for microbiol ogy susceptibilities only. [facility] Cefepime Susceptible. Indicates for microbiol ogy susceptibilities only. [facility] ESBL - [facility] Ceftriaxone Susceptible. Indicates for m icrobiology susceptibilities only. [facility] Ciprofloxacin Susceptible. Ind icates for microbiology susceptibilities only. [facility] Ertapenem Susceptible. Indicates for microbiol ogy susceptibilities only. [facility] Gentamicin Susceptible. Indicates for microbiol ogy susceptibilities only. [facility] Imipenem Susceptible. Indicates for microbiol ogy susceptibilities only. [facility] Meropenem Susceptible. Indicates for microbiol ogy susceptibilities only. [facility] Levofloxacin Susceptible. Indicates for m icrobiology susceptibilities only. [facility] Nitrofurantoin 128 Results entered -- not verified [facility] Pipercillin/Tazobactam Susceptib le. Indicates for microbiology susceptibilities only. [facility] Trimeth/Sulfamethoxazole Suscept ible. Indicates for microbiology susceptibilities only. [facility] ID Date Data Source [id number] 06/13/2020 07:23:00 AM [facility] Name Value Range Interpretation Code Description Data Kena rce(s) Supporting Document(s) Chlamydia,Urine Negative Normal (applies to non-numeric results) [facility] Test Performed By: [facility] [address] [place] [address] Director: Yanick Wooten MD . GC Urine Negative Normal (applies to non-numeric resul ts) [facility] Test Performed By: [facility] [address] [place] [address] Director: Yanick Wooten MD . Methodology: Second generation nucleic acid amplification. ID Date Data Source [id number] 06/06/2020 03:19:00 PM [facility] Name Value Range Interpretation Code Description Data Kena rce(s) Supporting Document(s) Chlamydia,Urine result Negative Normal (applies to non-n umeric results) [facility] Test Performed By: [facility] [address] [place] [address] Director: Yanick Wooten MD . GC Urine result Negative Normal (applies to non-numeric results) [facility] Test Performed By: [facility] [address] [place] [address] Director: Yanick Wooten MD . Methodology: Second generation nucleic acid amplification. ID Date Data Source [id number] 06/01/2020 10:55:00 PM [facility] Collected By: Nurse Initials: KT Time Collected: 2054 Collected By: Nurse Initials: KT Time Collected: 2054 Name Value Range Interpretation Code Description Data Kena rce(s) Supporting Document(s) Color,Urine Colorl-Dk Y Normal (applies to non-numeric res ults) [facility] Clarity,Urine Clear Normal (applies to non-numeric re sults) [facility] Specific [facility],Urine 1.005-1.030 Normal (applies to non- numeric results) [facility] pH,Urine 5.0-8.0 Normal (applies to non-numeric resul ts) [facility] Protein,Urine Negative Normal (applies to non-numeric re sults) [facility] Glucose,Urine Negative Normal (applies to non-numeric re sults) [facility] Ketones,Urine Negative Normal (applies to non-numeric re sults) [facility] Negative [facility] Bil[facility],U[facility] Negative Normal (applies to non-numeric results) [facility] Urobilinogen,Urine 0.2-1.0 Normal (applies to non-numer ic results) [facility] Leukocyte Esterase,Urine Negative Normal (applies to non -numeric results) [facility] Nitrite,Urine Negative Normal (applies to non-numeric re sults) [facility] ID Date Data Source [id number] 06/01/2020 10:55:00 PM [facility] Collected By: Nurse Initials: KT Time Collected: 2054 Collected By: Nurse Initials: KT Time Collected: 2054 Name Value Range Interpretation Code Description Data Kena rce(s) Supporting Document(s) WBC,Urine None Seen [facility] Squamous Cells,Urine None Seen [facility] Bacteria,Urine None Seen [facility] ital ID Date Data Source [id number] 06/01/2020 10:52:00 PM [facility] Name Value Range Interpretation Code Description Data Kena rce(s) Supporting Document(s) UDS Benzodiazepines Screen Negative Normal (applies to n on-numeric results) [facility] UDS Cocaine Screen Negative Normal (applies to non-numer ic results) [facility] UDS Ampetamine Screen Negative [facility] UDS Cannabinoids Screen Negative Normal (applies to non- numeric results) [facility] UDS Opiates Screen Negative Normal (applies to non-numer ic results) [facility] UDS Barbiturates Screen Negative Normal (applies to non- numeric results) [facility] ID Date Data Source [id number] 06/13/2020 07:21:00 AM EST [facility] Test Performed By: [facility] [address] [place] [address] Director: Yanick Wooten MD Test Performed By: [place] [address] Director: Yanick Wooten MD Name Value Range Interpretation Code Description Data Kena rce(s) Supporting Document(s) Hep C Ab-T Test Nonreactive [facility] Test Performed By: [place] [address] Director: Yanick Wooten MD Results called 06/01/20 [...] be requested by the physician if necessary. ([facility] MMWR No RR-3. 2003). ID Date Data Source [id number] 06/13/2020 07:21:00 AM [facility] Test Performed By: [facility] [address] [place] [address] Director: Yanick Wooten MD Test Performed By: [place] [address] Director: Yanick Wooten MD Name Value Range Interpretation Code Description Data Kena rce(s) Supporting Document(s) ID Date Data Source [id number] 06/13/2020 07:21:00 AM EST [facility] Test Performed By: [facility] [address] [place] [address] Director: Yanick Wooten MD Test Performed By: [place] [address] Director: Yanick Wooten MD Name Value Range Interpretation Code Description Data Kena rce(s) Supporting Document(s) ID Date Data Source [id number] 06/13/2020 07:21:00 AM [facility] Name Value Range Interpretation Code Description Data Kena rce(s) Supporting Document(s) Hepatitis A Ab,IgG result Normal (applies to no n-numeric results) [facility] Result indicates immunity to hepatitis A infection from either vaccination or past exposure to hepatitis A. False-positive results may be observed in patients with CMV antibodies or heterophilic antibodies. REFERENCE VALUE Unvaccinated: Negative Vaccinated: Positive Test Performed by: [place] [address] Java Lead Developer: Johnson Davies M.D. Ph.D.; CLIA# [id number] ID Date Data Source [id number] 06/13/2020 07:21:00 AM [facility] Value Range Interpretation Code Description Data Kena rce(s) Supporting Document(s) CPK 72 U/L 26-192 Normal (applies to non-numeric resul ts) [facility] [address] [place] [address] Director: Yanick Wooten MD ID Date Data Source [id number] 06/03/2020 07:16:00 PM [facility] Name Value Range Interpretation Code Description Data Kena rce(s) Supporting Document(s) Hepatitis A Ab,IgG result Normal (applies to no n-numeric results) [facility] Result indicates immunity to hepatitis A infection from either vaccination or past exposure to hepatitis A. False-positive results may be observed in patients with CMV antibodies or heterophilic antibodies. REFERENCE VALUE Unvaccinated: Negative Vaccinated: Positive Test Performed by: [place] [address] Java Lead Developer: Johnson Davies M.D. Ph.D.; CLIA# [id number] ID Date Data Source [id number] 06/01/2020 05:00:00 PM EST [facility] Name Value Range Interpretation Code Description Data Kena rce(s) Supporting Document(s) Sodium 138 mmol/L 136-145 Normal (applies to non-numeric resul ts) [facility] Potassium 3.5-5.1 Normal (applies to non-numeric resul ts) [facility] Chloride 103 mmol/L 98-107 Normal (applies to non-numeric resul ts) [facility] Carbon Dioxide CO2 21-32 Normal (applies to non-numer ic results) [facility] Anion Gap 5.0-16.0 Normal (applies to non-numeric resul ts) [facility] BUN 18 mg/dL 7-18 Normal (applies to non-numeric results) [facility] Creatinine,Serum 0.7-1.2 Normal (applies to non-numeric results) [facility] GFR >60 Normal (applies to non-numeric results) [facility] Glucose Level 93 mg/dL 60-99 Normal (applies to non-numeric re sults) [facility] Reference range is only applicable when patient is fasting Note the following drug interference: Sulfasalazine Sulfapyridine Can see falsely depressed Can see falsely elevated result with up to 17% results with up to 11% decrease in measurement increase in measurement Recommend patients be collected for this test prior to administration of either drug. Calcium 8.5-10.1 Normal (applies to non-numeric resul ts) [facility] Bilirubin,Total 0.1-1.9 Normal (applies to non-numeric results) [facility] SGOT(AST) 24 U/L 15-37 Normal (applies to non-numeric resul ts) [facility] Note the following drug interference: Sulfasalazine Sulfapyridine Can see falsely depressed Can see falsely elevated result with up to 10% results with up to 10% decrease in measurement increase in measurement Recommend patients be collected for this test prior to administration of either drug. SGPT(ALT) 29 U/L 12-78 Normal (applies to non-numeric resul ts) [facility] Note the following drug interference: Sulfasalazine Sulfapyridine Can see falsely depressed Can see falsely elevated result with up to 29% results with up to 10% decrease in measurement increase in measurement Recommend patients be collected for this test prior to administration of either drug. Alkaline Phosphatase 75 U/L 38-126 Normal (applies to non-num roseann results) [facility] can increase Alkaline Phosp le vels up to 2 times the normal adult value. Normal values for children and adolescents are 2 to 3 times the normal adult value. Total Protein 6.0-8.2 Normal (applies to non-numeric re sults) [facility] Albumin Level 3.4-5.0 Below low normal [facility] ID Date Data Source [id number] 06/01/2020 05:00:00 PM [facility] Value Range Interpretation Code Description Data Kena rce(s) Supporting Document(s) Bilirubin,Direct 0.05-0.20 Normal (applies to non-numeric results) [facility] ID Date Data Source [id number] 06/01/2020 05:00:00 PM [facility] Value Range Interpretation Code Description Data Kena rce(s) Supporting Document(s) Phosphorus 2.5-4.9 Normal (applies to non-numeric resul ts) [facility] ID Date Data Source [id number] 06/01/2020 05:00:00 PM [facility] Value Range Interpretation Code Description Data Kena rce(s) Supporting Document(s) Magnesium 1.8-2.4 Normal (applies to non-numeric resul ts) [facility] ID Date Data Source [id number] 06/01/2020 05:00:00 PM [facility] Value Range Interpretation Code Description Data Kena rce(s) Supporting Document(s) Thyroid Stimulate Hormone TSH 0.358-3.74 No rmal (applies to non-numeric results) [facility] ID Date Data Source [id number] 06/02/2020 01:27:00 AM [facility] Value Range Interpretation Code Description Data Kena rce(s) Supporting Document(s) CPK result 72 U/L 26-192 Normal (applies to non-numeric resul ts) [facility] Test Performed By: [place] [address] Director: Yanick Wooten MD ID Date Data Source [id number] 06/02/2020 01:27:00 AM [facility] Name Value Range Interpretation Code Description Data Kena rce(s) Supporting Document(s) Hepatitis C Virus Ab result Nonreactive Very abnormal (applies to non-numeric units [facility] Test Performed By: [place] [address] Director: Yanick Wooten MD Results called 06/01/20JAMES [...] be requested by the physician if necessary. ([facility] MMWR No RR-3. 2003). called to PATTIE FARR ID Date Data Source [id number] 06/02/2020 01:27:00 AM [facility] Value Range Interpretation Code Description Data Kena rce(s) Supporting Document(s) Hep Bs Ag result T-Test Nonreactive Normal (applies to non -numeric results) [facility] Test Performed By: [place] [address] Director: Yanick Wooten MD ID Date Data Source [id number] 06/02/2020 01:27:00 AM [facility] Value Range Interpretation Code Description Data Kena rce(s) Supporting Document(s) Syphilis Serology result Nonreactive Normal (applies to non-numeric results) [facility] Test Performed By: [place] [address] Director: Yanick Wooten MD ID Date Data Source [id number] 06/01/2020 05:09:00 PM EST [facility] Name Value Range Interpretation Code Description Data Kena rce(s) Supporting Document(s) Ethanol Less than 10.0 Normal (applies to non-numeric r esults) [facility] ID Date Data Source [id number] 06/01/2020 04:40:00 PM EST [facility] Name Value Range Interpretation Code Description Data Kena rce(s) Supporting Document(s) White Blood Count 3.5-10.5 Normal (applies to non-numeri c results) [facility] Red Blood Count 3.90-5.00 Below low normal [facility] Hemoglobin 12.0-15.5 Below low normal [facility]ital Hematocrit 34.9-44.5 Below low normal [facility] Mean Corpuscular Volume 81.2-95.1 Normal (applies to non- numeric results) [facility] Mean Corpuscular Hgb 25.6-32.2 Normal (applies to non-num roseann results) [facility] Mean Corpuscular Hgb Conc 32.0-36.0 Normal (applies to no n-numeric results) [facility] Red Cell Distribution Width 11.9-15.5 Above high normal [facility] Platelet Count 329 x10 3/uL 150-450 Normal (applies to non-numeric results) [facility] Mean Platelet Volume 9.4-12.4 Normal (applies to non-num roseann results) [facility] Neutrophils% (Auto) 31.0-71.0 Normal (applies to non-nume erlinda results) [facility] Lymphocytes% (Auto) 20.0-55.0 Above high normal [facility] Monocytes% (Auto) 4.0-12.0 Normal (applies to non-numeri c results) [facility] Eosinophils% (Auto) 1.0-8.0 Normal (applies to non-nume erlinda results) [facility] Basophils% (Auto) 0.0-2.0 Normal (applies to non-numeri c results) [facility] Immature Granulocytes% (Auto) 0.0-2.0 Normal (wendy lies to non-numeric results) [facility] Neutrophils# (Auto) 1.50-6.20 Normal (applies to non-nume erlinda results) [facility] Lymphocytes# (Auto) 1.20-4.00 Normal (applies to non-nume erlinda results) [facility] Monocytes# (Auto) 0.00-0.90 Normal (applies to non-numeri c results) [facility] Eosinophils# (Auto) 0.00-0.50 Normal (applies to non-nume erlinda results) [facility] Basophils# (Auto) 0.00-0.20 Normal (applies to non-numeri c results) [facility] Immature Granulocytes# (Auto) 0.00-7.00 No rmal (applies to non-numeric results) [facility] ID Date Data Source [id number] 06/01/2020 03:36:00 PM EST [facility] First test? NOEmployed in healthcare? NOSymptomatic per CDC? NOHospitalized? YESICU? NOResident in congregated care? ex [facility], [facility] NO? NO Name Value Range Interpretation Code Description Data Kena rce(s) Supporting Document(s) RP Internal Control Passed Normal (applies to non-nume erlinda results) [facility] Adenovirus None Detect Normal (applies to non-numeric resu lts) [facility] Coronavirus 229E None Detect Normal (applies to non-numeri c results) [facility] Coronavirus HKU1 None Detect Normal (applies to non-numeri c results) [facility] Coronavirus NL63 None Detect Normal (applies to non-numeri c results) [facility] Coronavirus OC43 None Detect Normal (applies to non-numeri c results) [facility] SARS-CoV-2 Not Detect Normal (applies to non-numeric resul ts) [facility] Negative results do not preclude SARS-Co V-2 infection and should not be used as the sole basis for treatment or other patient management decisions. Negative results must be combined with clinical observations, patient history, and epidemiological information. Testing was performed using the [employer] real-time nested multiplexed PCR Respiratory Panel 2.1 [...] Detect Normal (applies to non-n umeric results) [facility] Rhino/Enterovirus None Detect Normal (applies to non-numer ic results) [facility] Influenza A None Detect Normal (applies to non-numeric res ults) [facility] Influenza B None Detect Normal (applies to non-numeric res ults) [facility] Parainfluenza Virus 1 None Detect Normal (applies to non-n umeric results) [facility] Parainfluenza Virus 2 None Detect Normal (applies to non-n umeric results) [facility] Parainfluenza Virus 3 None Detect Normal (applies to non-n umeric results) [facility] Parainfluenza Virus 4 None Detect Normal (applies to non-n umeric results) [facility] Respiratory Syncytial Virus None Detect Norm al (applies to non-numeric results) [facility] Bordetella Parapertussis None Detect Normal (applies to non-numeric results) [facility] Bordetella Pertussis None Detect Normal (applies to non-nu meric results) [facility] Chlamydia Pneumoniae None Detect Normal (applies to non-nu meric results) [facility] Mycoplasma Pneumoniae None Detect Normal (applies to non-n umeric results) [facility] Methodology: Multiplexed PCR Refer ence Range: None detected ID Date Data Source [id number] 11/16/2019 12:00:00 AM EDT [facility] Brittany Solano Cnm Patient Name: RICARDA [id number] Ibeth Burns [facility] 1995[facility] [place] [address] Date of Exam: 11/16/2019PH#: Fax: [phone] EXAM: US OB, FOLLOW-UP (GROWTH, ORGAN SYSTEMS)/FETUSCLINICAL INFORMATION: Followup anatomy.LMP: 06/16/2019GA by LMP: 21 weeks 6 days, JAGDISH: 03/22/2020Cervical Length: 3.9 cmFetal Heart Rate: 159 BPMType of Gestation: SingletonIntrauterine in vertex presentation.Placental location: Anterior, Grade 1Placental maturity: Grade 1Amniotic fluid volume: NormalFetal heart and facial profile are well seen on today's exam.Accredited by the [employer] in Obstetrical Ultrasound.JACK Winn/Violette ramos for referring KRYSTINA HORNE to our office. Electronically Signed - TYSON IRENE DO 11/16/19 16:58 Name Value Range Interpretation Code Description Data Kena rce(s) Supporting Document(s) Procedure Social History Code Duration Value Status Description Data Source(s ) Smoking 01/17/2020 12:00:00 AM EDT Current Smoker completed Curre nt Smoker eCW1 ([facility]) Smoking 01/17/2020 12:00:00 AM EDT Current Smoker completed Curre nt Smoker eCW1 ([facility]) Smoking 01/17/2020 12:00:00 AM EDT Current Smoker completed Curre nt Smoker eCW1 ([facility]) Smoking 12/03/2019 12:00:00 AM EDT Current Smoker completed Curre nt Smoker eCW1 ([facility]) Smoking 12/03/2019 12:00:00 AM EDT Current Smoker completed Curre nt Smoker eCW1 ([facility]) Smoking 12/03/2019 12:00:00 AM EDT Current Smoker completed Curre nt Smoker eCW1 ([facility]) Smoking 12/03/2019 12:00:00 AM EDT Current Smoker completed Curre nt Smoker eCW1 ([facility]) Vital Signs ID Date Data Source UNK Name Value Range Interpretation Code Description Data Source(s) Diastolic blood pressure 58 mm[Hg] 58 mm[Hg] eCW1 ([facility]) Systolic blood pressure 108 mm[Hg] 108 mm[Hg] e CW1 ([facility]) Body mass index (BMI) [Ratio] 24.714 kg/m2 24.7 14 kg/m2 W1 ([facility]) Body height 61 [in_i] 61 [in_i] e[facility] Body weight 130.8 [lb_av] 130.8 [lb_av] eCW1 ([facility]) Diastolic blood pressure 54 mm[Hg] 54 mm[Hg] eCW1 ([facility]) Systolic blood pressure 114 mm[Hg] 114 mm[Hg] e CW1 ([facility]) Body mass index (BMI) [Ratio] 24.563 kg/m2 24.5 63 kg/m2 eCW1 ([facility]) Body height 61 [in_i] 61 [in_i] eCW1 ([facility]) Body weight 130 [lb_av] 130 [lb_av] eCW1 ([facility]) Diastolic blood pressure 60 mm[Hg] 60 mm[Hg] eCW1 ([facility]) Systolic blood pressure 102 mm[Hg] 102 mm[Hg] e CW1 ([facility]) Body mass index (BMI) [Ratio] 24.79 kg/m2 24.79 kg/m2 eCW1 ([facility]) Body height 61 [in_i] 61 [in_i] eCW1 ([facility]) Body weight 131.2 [lb_av] 131.2 [lb_av] eCW1 ([facility]) Diastolic blood pressure 68 mm[Hg] 68 mm[Hg] eCW1 ([facility]) Systolic blood pressure 102 mm[Hg] 102 mm[Hg] e CW1 ([facility]) Body mass index (BMI) [Ratio] 23.052 kg/m2 23.0 52 kg/m2 W1 ([facility]) Body height 61 [in_i] 61 [in_i] eCW1 ([facility]) Body weight 122.0 [lb_av] 122.0 [lb_av] eCW1 ([facility]) Diastolic blood pressure 60 mm[Hg] 60 mm[Hg] eCW1 ([facility]) Systolic blood pressure 100 mm[Hg] 100 mm[Hg] e CW1 ([facility]) Body mass index (BMI) [Ratio] 22.371 kg/m2 22.3 71 kg/m2 W1 ([facility]) Body height 61 [in_us] 61 [in_us] eCW1 ([facility]) Body weight Measured 118.4 [lb_av] 118.4 [lb_av ] eCW1 ([facility]) Diastolic blood pressure 66 mm[Hg] 66 mm[Hg] eCW1 ([facility]) Systolic blood pressure 108 mm[Hg] 108 mm[Hg] e CW1 ([facility]) Body mass index (BMI) [Ratio] 23.052 kg/m2 23.0 52 kg/m2 W1 ([facility]) Body height 61 [in_us] 61 [in_us] eCW1 ([facility]) Body weight Measured 122 [lb_av] 122 [lb_av] eC W1 ([facility]) ID Date Data Source [id number] 06/13/2020 08:36:00 AM [facility] Name Value Range Interpretation Code Description Data Source(s) Weight (Calculated Kilograms) 67.59 67.59 [facility] Height (Calculated Centimeters) 154.94 154. 94 [facility] Body Mass Index (BMI) 28.1 28.1 Health system ID Date Data Source [id number] 06/13/2020 07:23:00 AM [facility] Name Value Range Interpretation Code Description Data Source(s) Weight (Calculated Kilograms) 67.59 67.59 [facility] Height (Calculated Centimeters) 154.94 154. 94 [facility] Body Mass Index (BMI) 28.1 28.1 Health system ID Date Data Source [id number] 06/13/2020 07:21:00 AM [facility] Name Value Range Interpretation Code Description Data Source(s) Weight (Calculated Kilograms) 67.59 67.59 [facility] Height (Calculated Centimeters) 154.94 154. 94 [facility] Body Mass Index (BMI) 28.1 28.1 Health system ID Date Data Source [id number] 06/05/2020 07:53:[address] [facility] Name Value Range Interpretation Code Description Data Source(s) Weight Measurement Method 1 1 [facility] Weight (Calculated Kilograms) 48.99 48.99 [facility] Weight 1728 1728 [facility] pital Temperature Source 7 7 [facility] Temperature 97.[address] [facility] spital Respiratory Effort 1 1 [facility] Respiratory Rate 16 16 [facility] Pulse Assessment Method 1 1 [facility] 84 [facility] (Calculated Centimeters) 156.21 156. 21 [facility] Height 61.5 61.5 [facility] Blood Pressure 112/64 112/64 [facility] Body Mass Index (BMI) [address] [facility] Weight Measurement Method 1 1 [facility] Weight (Calculated Kilograms) 48.99 48.99 [facility] Weight 1728 1728 [facility] pital Temperature Source 7 7 [facility] Temperature 97.4 97.4 [facility] Res[facility] Effort 1 1 [facility] Respiratory Rate 16 16 [facility] Pulse Assessment Method 1 1 [facility] Pulse Rate 84 84 [facility] pital Height (Calculated Centimeters) 156.21 156. 21 [facility] Height 61.5 61.5 [facility] pital Blood Pressure 112/64 112/64 [facility] Body Mass Index (BMI) [address] [facility] Weight Measurement Method 1 1 [facility] Weight (Calculated Kilograms) 48.99 48.99 [facility] Weight 1728 1728 [facility] pital Temperature Source 7 7 [facility] Temperature 97.4 97.4 [facility] Respiratory Effort 1 1 [facility] Respiratory Rate 16 16 [facility] Pulse Assessment Method 1 1 [facility] Pulse Rate 84 84 [facility] pital Height (Calculated Centimeters) 156.21 156. 21 [facility] Height 61.5 61.5 [facility] pital Blood Pressure 112/64 112/64 [facility] Body Mass Index (BMI) [address] [facility] Weight Measurement Method 1 1 [facility] Weight (Calculated Kilograms) 48.99 48.99 [facility] Weight 1728 1728 [facility] pital Temperature Source 7 7 [facility] Temperature 97.4 97.4 [facility] Respiratory Effort 1 1 [facility] Respiratory Rate 16 16 [facility] Pulse Assessment Method 1 1 [facility] Pulse Rate 84 84 [facility] pital Height (Calculated Centimeters) 156.21 156. 21 [facility] Height 61.5 61.5 [facility] pital Blood Pressure 112/64 112/64 [facility] Body Mass Index (BMI) [address] [facility] Weight Measurement Method 1 1 [facility] Weight (Calculated Kilograms) 48.99 48.99 [facility] Weight 1728 1728 [facility] pital Temperature Source 1 1 [facility] Temperature [address] [facility] spital Respiratory Effort 1 1 [facility] Respiratory Rate 17 17 [facility] Pulse Assessment Method 4 4 G [facility] Pulse Rate 83 83 [facility] pital Height (Calculated Centimeters) 156.21 156. 21 [facility] Height 61.5 61.5 [facility] pital Blood Pressure 103/62 103/62 [facility] Body Mass Index (BMI) [address] [facility] Weight Measurement Method 1 1 [facility] Weight (Calculated Kilograms) 48.99 48.99 [facility] Weight 1728 1728 [facility] pital Temperature Source 7 7 [facility] Temperature 97.[address] [facility] spital Respiratory Effort 1 1 [facility] Respiratory Rate 18 18 [facility] Pulse Assessment Method 4 4 G [facility] Pulse Rate 88 88 [facility] pital Height (Calculated Centimeters) 156.21 156. 21 [facility] 61.5 61.5 [facility] 99/67 99/67 [facility] Body Mass Index (BMI) [address] [facility] Weight (Calculated Kilograms) 65.50 65.50 [facility] Height (Calculated Centimeters) 154.94 154. 94 [facility] Body Mass Index (BMI) 27.[address] [facility] Patient Treatment Plan of Care Planned Activity Planned Date Details Description Data Source (s) Ondansetron 4 MG Oral Tablet [Zofran] 09/24/2019 12:00:00 AM EDT [email or web address] ([facility])
== END 2020-07-26 13:44 | disposition left against medical advice (07) ==
LOC: M ED 13:25
DX: Z53.21 Procedure and treatment not carried out due to patient leaving prior to being seen by health care provider (principal)

== ENCOUNTER 2020-08-04 23:11 | Emergency (ER) | payer OTHER ==
[~2020-08-04] VITALS: Ht 154.9 cm; Wt 48.6 kg
[2020-08-04 23:11] VITALS: BP 107/67
== END 2020-08-05 00:13 | disposition left against medical advice (07) ==
LOC: M ED 23:11
DX: Z53.21 Procedure and treatment not carried out due to patient leaving prior to being seen by health care provider (principal)

== ENCOUNTER 2020-12-30 14:54 | Emergency (ER) | payer OTHER ==
[~2020-12-30] VITALS: Ht 154.9 cm; Wt 51.2 kg
[2020-12-30 14:58] VITALS: BP 109/58
== END 2020-12-30 20:01 | disposition left against medical advice (07) ==
LOC: M ED 16:50
DX: Z53.29 Procedure and treatment not carried out because of patient's decision for other reasons (principal)

== ENCOUNTER 2020-12-30 21:08 | Emergency (ER) | payer OTHER ==
[~2020-12-30] VITALS: Ht 154.9 cm; Wt 51.5 kg
[2020-12-30 21:09] VITALS: BP 117/55
== END 2020-12-30 22:30 | disposition left against medical advice (07) ==
LOC: M ED 21:08
DX: Z53.21 Procedure and treatment not carried out due to patient leaving prior to being seen by health care provider (principal)

== ENCOUNTER 2021-01-01 11:19 | Emergency (ER) | payer OTHER ==
[~2021-01-01] VITALS: Ht 154.9 cm; Wt 53.1 kg
[2021-01-01 11:20] VITALS: BP 111/63
[2021-01-01] MEDS ORDERED: BOOSTRIX/ADACEL VACCINE (DIPHTH/PERTUSS/ACELL/TETANUS) 0.5ML SYR IM ONE (14:15)
[2021-01-01] MEDS ORDERED: BACT800T5 PO (14:34)
== END 2021-01-01 14:53 | disposition home or self-care (01) ==
LOC: EEVIPCON 11:19 → M ED 11:19
DX: L03.114 Cellulitis of left upper limb (principal); L98.499 Non-pressure chronic ulcer of skin of other sites with unspecified severity; F33.9 Major depressive disorder, recurrent, unspecified; F41.9 Anxiety disorder, unspecified; D64.9 Anemia, unspecified; Z86.19 Personal history of other infectious and parasitic diseases; F17.210 Nicotine dependence, cigarettes, uncomplicated

== ENCOUNTER 2021-02-13 23:23 | Emergency (ER) | payer OTHER ==
[~2021-02-13] VITALS: Ht 154.9 cm; Wt 53.6 kg
[2021-02-13 23:23] VITALS: BP 114/57
== END 2021-02-14 02:26 | disposition left against medical advice (07) ==
LOC: M ED 23:23
DX: Z53.29 Procedure and treatment not carried out because of patient's decision for other reasons (principal)

== ENCOUNTER → 2021-03-31 | Outpatient (CLI) | payer OTHER ==
[2021-03-31 16:11] LABS: BASO % 0.4 % (0.0-1.0); EOS # 0.3 10^3/uL (0.0-0.5); EOS % 3.6 % (0.0-3.0); HEMOGLOBIN 11.2 g/dl (12.0-15.5); LYMPH # 3.2 10^3/uL (1.5-5.0); LYMPH % 45.9 % (24.0-44.0); MEAN CORPUSCULAR HGB CONC 30.3 g/dl (32.0-36.5); MEAN CORPUSCULAR VOLUME 76.1 fl (80.0-96.0); MONO # 0.4 10^3/uL (0.0-0.8); MONO % 5.1 % (2.0-8.0); NEUTROPHILS # 3.1 10^3/uL (1.5-8.5); NEUTROPHILS % 44.9 % (36.0-66.0); PLATELET COUNT, AUTOMATED 343 10^3/uL (150-450); RED BLOOD COUNT 4.86 10^6/uL (4.00-5.40)
[2021-03-31 16:30] LABS: HEMOGLOBIN A1c 5.1 %
[2021-03-31 16:45] LABS: ALBUMIN 3.5 GM/DL (3.2-5.2); ALT/SGPT 30 U/L (12-78); BILIRUBIN,DIRECT < 0.1 MG/DL (0.0-0.2); BILIRUBIN,TOTAL 0.1 MG/DL (0.2-1.0); BLOOD UREA NITROGEN 20 MG/DL (7-18); CALCIUM LEVEL 9.1 MG/DL (8.5-10.1); CARBON DIOXIDE LEVEL 29 MEQ/L (21-32); CHLORIDE LEVEL 104 MEQ/L (98-107); CHOLESTEROL LEVEL 193 MG/DL (<200); CHOLESTEROL RISK RATIO 2.797 (<5); CREATININE FOR GFR 0.65 MG/DL (0.55-1.30); FREE T4 0.95 NG/DL (0.76-1.46); GLOMERULAR FILTRATION RATE > 60.0 (>60); GLUCOSE, FASTING 85 MG/DL (70-100); HDL CHOLESTEROL 69 MG/DL (>40); LDL CHOLESTEROL 95 MG/DL (<100); NON-HDL-C 124 MG/DL; PHOSPHORUS LEVEL 3.4 MG/DL (2.5-4.9); POTASSIUM SERUM 4.2 MEQ/L (3.5-5.1); SODIUM LEVEL 138 MEQ/L (136-145); THYROID STIMULATING HORMONE 0.606 uIU/ML (0.358-3.740); TOTAL PROTEIN 7.5 GM/DL (6.4-8.2); TRIGLYCERIDES LEVEL 147 MG/DL (<150)
== END ==
LOC: M LAB 15:07
PROVIDERS: ATTEND Nurse Practitioner Psychiatric/Mental Health
DX: F41.9 Anxiety disorder, unspecified (principal); F32.9 Major depressive disorder, single episode, unspecified; Z79.899 Other long term (current) drug therapy

== ENCOUNTER 2022-02-03 22:42 | Emergency (ER) | payer OTHER ==
[2022-02-03 22:55] VITALS: BP 110/55
[2022-02-03] MEDS ORDERED: ACETAMINOPHEN TAB 650MG DOSE (2X325MG) PO ONE (23:00)
[2022-02-03 23:25] LABS: BASO % 0.6 % (0.0-1.0); EOS # 0.1 10^3/uL (0.0-0.5); EOS % 2.4 % (0.0-3.0); HEMATOCRIT 32.6 % (36.0-47.0); HEMOGLOBIN 10.3 g/dl (12.0-15.5); LYMPH # 3.1 10^3/uL (1.5-5.0); LYMPH % 56.9 % (24.0-44.0); MEAN CORPUSCULAR HEMOGLOBIN 25.4 pg (27.0-33.0); MEAN CORPUSCULAR HGB CONC 31.6 g/dl (32.0-36.5); MEAN CORPUSCULAR VOLUME 80.3 fl (80.0-96.0); MONO # 0.4 10^3/uL (0.0-0.8); MONO % 7.8 % (2.0-8.0); NEUTROPHILS # 1.7 10^3/uL (1.5-8.5); NEUTROPHILS % 32.1 % (36.0-66.0); PLATELET COUNT, AUTOMATED 253 10^3/uL (150-450); RED BLOOD COUNT 4.06 10^6/uL (4.00-5.40); WHITE BLOOD COUNT 5.4 10^3/uL (4.0-10.0)
[2022-02-04 00:37] LABS: ALBUMIN 3.6 GM/DL (3.2-5.2); ALT/SGPT 45 U/L (12-78); AMYLASE 49 U/L (25-115); BILIRUBIN,TOTAL 0.1 MG/DL (0.2-1.0); BLOOD UREA NITROGEN 14 MG/DL (7-18); CALCIUM LEVEL 8.9 MG/DL (8.5-10.1); CARBON DIOXIDE LEVEL 24 MEQ/L (21-32); CHLORIDE LEVEL 106 MEQ/L (98-107); CREATININE FOR GFR 0.46 MG/DL (0.55-1.30); GLOMERULAR FILTRATION RATE > 60.0 (>60); GLUCOSE, FASTING 96 MG/DL (70-100); HCG, SERUM QUANTITATIVE 8670 MIU/ML; LIPASE 137 U/L (73-393); POTASSIUM SERUM 4.1 MEQ/L (3.5-5.1); SODIUM LEVEL 136 MEQ/L (136-145); TOTAL PROTEIN 7.4 GM/DL (6.4-8.2)
== END 2022-02-04 00:16 | disposition left against medical advice (07) ==
LOC: M ED 22:42
DX: S39.012A Strain of muscle, fascia and tendon of lower back, initial encounter (principal); V49.40XA Driver injured in collision with unspecified motor vehicles in traffic accident, initial encounter; Z53.20 Procedure and treatment not carried out because of patient's decision for unspecified reasons

== ENCOUNTER → 2022-03-15 | Outpatient (CLI) | payer OTHER | LOC: M LAB 12:41 | PROVIDERS: ATTEND Obstetrics & Gynecology | DX: Z34.91 Encounter for supervision of normal pregnancy, unspecified, first trimester (principal) ==

== ENCOUNTER → 2022-05-09 | Outpatient (CLI) | payer OTHER ==
[~2022-05-09] MED LIST changes: +FIOR1CAP PO; +MAGN70CA PO; +PRENMIS3 PO
[2022-05-09 15:11] LABS: HEMATOCRIT 30.6 % (36.0-47.0); HEMOGLOBIN 9.7 g/dl (12.0-15.5); MEAN CORPUSCULAR HEMOGLOBIN 27.3 pg (27.0-33.0); MEAN CORPUSCULAR HGB CONC 31.7 g/dl (32.0-36.5); MEAN CORPUSCULAR VOLUME 86.2 fl (80.0-96.0); PLATELET COUNT, AUTOMATED 181 10^3/uL (150-450); RED BLOOD COUNT 3.55 10^6/uL (4.00-5.40); WHITE BLOOD COUNT 6.5 10^3/uL (4.0-10.0)
[2022-05-09 15:49] LABS: ALBUMIN 2.8 GM/DL (3.2-5.2); ALT/SGPT 32 U/L (12-78); BILIRUBIN,TOTAL 0.2 MG/DL (0.2-1.0); BLOOD UREA NITROGEN 9 MG/DL (7-18); CALCIUM LEVEL 8.6 MG/DL (8.5-10.1); CARBON DIOXIDE LEVEL 22 MEQ/L (21-32); CHLORIDE LEVEL 107 MEQ/L (98-107); CREATININE FOR GFR 0.38 MG/DL (0.55-1.30); GLOMERULAR FILTRATION RATE > 60.0 (>60); GLUCOSE, FASTING 88 MG/DL (70-100); POTASSIUM SERUM 3.9 MEQ/L (3.5-5.1); SODIUM LEVEL 136 MEQ/L (136-145); TOTAL PROTEIN 6.3 GM/DL (6.4-8.2)
[2022-05-09 17:33] LABS: GC DNA AMPLIFICATION NEGATIVE (NEGATIVE)
[2022-05-09 17:56] LABS: HIV 1&2 SCREEN CENTAUR NEGATIVE (NEGATIVE)
[2022-05-09 18:19] LABS: HEPATITIS C VIRUS ABY INDEX > 11.0 INDEX (<0.8)
[2022-05-11 23:07] LABS: HEPATITIS C QUANTITATION 434000 IU/mL (.)
== END ==
LOC: M LAB 13:19 → M PLALAB 13:19
PROVIDERS: ATTEND Obstetrics & Gynecology
DX: Z36.89 Encounter for other specified antenatal screening (principal)

== ENCOUNTER 2022-05-10 12:24 | Emergency (ER) | payer OTHER ==
[~2022-05-10] VITALS: Ht 154.9 cm; Wt 74.0 kg
[~2022-05-10 12:24] MED LIST changes: -FIOR1CAP PO; -MAGN70CA PO; -PRENMIS3 PO
[2022-05-10] MEDS ORDERED: PRENMIS3 PO (12:38)
[2022-05-10] MEDS ORDERED: MAGN70CA PO (15:24)
[2022-05-10] MEDS ORDERED: FIOR1CAP PO (15:24)
[2022-05-10 15:30] VITALS: BP 110/56
== END 2022-05-10 15:33 | disposition home or self-care (01) ==
LOC: M ED 12:24
DX: O99.351 Diseases of the nervous system complicating pregnancy, first trimester (principal); G43.909 Migraine, unspecified, not intractable, without status migrainosus; I25.2 Old myocardial infarction; O99.340 Other mental disorders complicating pregnancy, unspecified trimester; O99.330 Smoking (tobacco) complicating pregnancy, unspecified trimester; Z79.899 Other long term (current) drug therapy; Z3A.00 Weeks of gestation of pregnancy not specified

== ENCOUNTER → 2022-05-16 | Outpatient (CLI) | payer OTHER ==
[~2022-05-16] MED LIST changes: +FIOR1CAP PO; +MAGN70CA PO; +PRENMIS3 PO
== END ==
LOC: M WHC 08:44
PROVIDERS: ATTEND Obstetrics & Gynecology
DX: Z34.92 Encounter for supervision of normal pregnancy, unspecified, second trimester (principal); Z3A.20 20 weeks gestation of pregnancy

== ENCOUNTER → 2022-07-19 | Outpatient (CLI) | payer OTHER ==
[2022-07-19 16:27] LABS: HEMATOCRIT 29.6 % (36.0-47.0); HEMOGLOBIN 9.5 g/dl (12.0-15.5); MEAN CORPUSCULAR HEMOGLOBIN 28.1 pg (27.0-33.0); MEAN CORPUSCULAR HGB CONC 32.1 g/dl (32.0-36.5); MEAN CORPUSCULAR VOLUME 87.6 fl (80.0-96.0); PLATELET COUNT, AUTOMATED 269 10^3/uL (150-450); RED BLOOD COUNT 3.38 10^6/uL (4.00-5.40)
[2022-07-19 20:18] LABS: GC DNA AMPLIFICATION NEGATIVE (NEGATIVE)
== END ==
LOC: M PLALAB 12:51
PROVIDERS: ATTEND Obstetrics & Gynecology
DX: Z34.82 Encounter for supervision of other normal pregnancy, second trimester (principal)

== ENCOUNTER → 2022-07-24 | Outpatient (CLI) | payer OTHER | LOC: M WHC 07:50 | PROVIDERS: ATTEND Obstetrics & Gynecology | DX: Z36.2 Encounter for other antenatal screening follow-up (principal); Z3A.30 30 weeks gestation of pregnancy ==

== ENCOUNTER → 2022-07-29 | Outpatient (CLI) | payer OTHER | LOC: M WHC 10:09 | PROVIDERS: ATTEND Obstetrics & Gynecology | DX: O28.3 Abnormal ultrasonic finding on antenatal screening of mother (principal); Z3A.30 30 weeks gestation of pregnancy ==

== ENCOUNTER 2022-09-02 12:14 | Outpatient (CLI) | payer OTHER ==
[~2022-09-02] VITALS: Ht 154.9 cm; Wt 79.1 kg
[2022-09-02 12:36] VITALS: BP 145/83
[2022-09-02 12:48] VITALS: BP 117/56
[2022-09-02] MEDS ORDERED: FERR325T81 PO (12:52)
[2022-09-02 12:58] VITALS: BP 107/59
[2022-09-02] MEDS ORDERED: METOCLOPRAMIDE 10MG TAB PO ONE (13:00)
[2022-09-02] MEDS ORDERED: diphenhydrAMINE 25MG CAP PO ONE (13:00)
[2022-09-02 13:10] VITALS: BP 110/65
[2022-09-02 13:11] VITALS: BP 93/55
[2022-09-02 13:45] LABS: MEAN CORPUSCULAR HEMOGLOBIN 26.1 pg (27.0-33.0); MEAN CORPUSCULAR HGB CONC 31.3 g/dl (32.0-36.5); MEAN CORPUSCULAR VOLUME 83.6 fl (80.0-96.0); PLATELET COUNT, AUTOMATED 278 10^3/uL (150-450); RED BLOOD COUNT 3.83 10^6/uL (4.00-5.40); WHITE BLOOD COUNT 6.8 10^3/uL (4.0-10.0)
[2022-09-02 14:01] LABS: TOTAL PROTEIN,RANDOM URINE 15.4 MG/DL (0.0-14.0)
[2022-09-02 14:03] LABS: URIC ACID 4.3 MG/DL (3.1-7.8)
[2022-09-02 14:04] LABS: LDH LACTATE DEHYDROGENASE 180 U/L (120-246)
[2022-09-02 14:05] LABS: CREATININE,RANDOM URINE 63.9 MG/DL
[2022-09-02 14:06] LABS: ALT/SGPT 17 U/L (7.0-40); AST/SGOT 22 U/L (<34); BILIRUBIN,TOTAL 0.4 MG/DL (0.3-1.2); CREATININE FOR GFR 0.38 MG/DL (0.55-1.30); GLOMERULAR FILTRATION RATE > 60.0 (>60)
== END 2022-09-02 14:20 | disposition home or self-care (01) ==
LOC: M LDO 12:14
PROVIDERS: ATTEND Advanced Practice Midwife
DX: O26.893 Other specified pregnancy related conditions, third trimester (principal); R51.9 Headache, unspecified; O26.853 Spotting complicating pregnancy, third trimester; O99.013 Anemia complicating pregnancy, third trimester; D64.9 Anemia, unspecified; O98.413 Viral hepatitis complicating pregnancy, third trimester; O99.333 Smoking (tobacco) complicating pregnancy, third trimester; F17.210 Nicotine dependence, cigarettes, uncomplicated; O99.323 Drug use complicating pregnancy, third trimester; F19.11 Other psychoactive substance abuse, in remission; Z3A.35 35 weeks gestation of pregnancy

== ENCOUNTER 2022-09-07 17:39 | Inpatient (IN) | payer OTHER ==
[~2022-09-07] VITALS: Ht 154.9 cm; Wt 79.1 kg
[~2022-09-07 17:39] MED LIST changes: +FERR325T81 PO
[2022-09-07 17:54] VITALS: BP 121/63
[2022-09-07] MEDS ORDERED: HOME MED LIST COMPLETE! XX SCH (18:00)
[2022-09-07] MEDS ORDERED: OXYTOCIN DRIP 30 UNITS in IV 1 EA IV PRN (18:45)
[2022-09-07] MEDS ORDERED: LIDOCAINE 1% MDV 20ML VIAL INFIL PRN (18:45)
[2022-09-07 19:58] LABS: HEMATOCRIT 32.1 % (36.0-47.0); HEMOGLOBIN 10.1 g/dl (12.0-15.5); MEAN CORPUSCULAR HEMOGLOBIN 25.7 pg (27.0-33.0); MEAN CORPUSCULAR HGB CONC 31.5 g/dl (32.0-36.5); MEAN CORPUSCULAR VOLUME 81.7 fl (80.0-96.0); PLATELET COUNT, AUTOMATED 325 10^3/uL (150-450); RED BLOOD COUNT 3.93 10^6/uL (4.00-5.40); WHITE BLOOD COUNT 8.6 10^3/uL (4.0-10.0)
[2022-09-07] MEDS: miSOPROStol 50MCG 1/2 TABLET SL SCH (20:42)
[2022-09-07 20:47] VITALS: BP 116/56
[2022-09-07 23:17] VITALS: BP 113/53
[2022-09-08] VITALS (23 sets, daily range): BP systolic 92–131; BP diastolic 46–94
[2022-09-08] MEDS: miSOPROStol 50MCG 1/2 TABLET SL SCH ×3 (00:52→07:56)
[2022-09-08] MEDS ORDERED: OXYTOCIN DRIP 30 UNITS in IV 1 EA IV SCH (10:45)
[2022-09-08] MEDS: LR 1,000 ML IV SCH ×2 (17:53→19:03)
[2022-09-08] MEDS ORDERED: FENTANYL/ROPIVACAINE/NACL BAG 100 ML EPIDURAL SCH (18:25)
[2022-09-08] MEDS ORDERED: EPIDURAL/PCA KEYS XX PRN (18:25)
[2022-09-08] MEDS ORDERED: diphenhydrAMINE 50MG/ML VIAL IV PRN (18:25)
[2022-09-08] MEDS ORDERED: LR 500 ML IV PRN (18:25)
[2022-09-08] MEDS ORDERED: ePHEDrine SULFATE 25 MG/5 ML(5MG/ML) SYRINGE IVP PRN (18:25)
[2022-09-08] MEDS ORDERED: NALOXONE INJ 0.4MG/1ML VIAL IV PRN (18:25)
[2022-09-08] MEDS ORDERED: ONDANSETRON 4MG 2ML VIAL IV PRN (18:25)
[2022-09-08] MEDS ORDERED: IBUPROFEN 600MG TAB PO PRN (19:55)
[2022-09-08] MEDS ORDERED: IBUPROFEN 800 MG TAB PO PRN (19:55)
[2022-09-08] MEDS ORDERED: DIBUCAINE 1% OINTMENT 30GM TOP PRN (19:55)
[2022-09-08] MEDS ORDERED: METHYLERGONOVINE MALEATE 0.2 MG TAB PO PRN (19:55)
[2022-09-08] MEDS ORDERED: ACETAMINOPHEN TAB 650MG DOSE (2X325MG) PO PRN (19:55)
[2022-09-08] MEDS ORDERED: DOCUSATE SODIUM 100MG CAPSULE PO PRN (19:55)
[2022-09-08] MEDS ORDERED: RHOGAM 300MCG (1500IU) INJ IM SCH (19:55)
[2022-09-08] MEDS ORDERED: ACETAMINOPHEN 500 MG TAB PO PRN (19:55)
[2022-09-09 05:55] VITALS: BP 116/57
[2022-09-09] MEDS: PRENATAL VITAMINS CHEWABLE TABLET PO SCH (09:03)
[2022-09-10 06:00] VITALS: BP 113/51
[2022-09-10] MEDS: PRENATAL VITAMINS CHEWABLE TABLET PO SCH (08:27)
[2022-09-10] MEDS ORDERED: MEASLES,MUMPS,RUBELLA VACCINE INJ (MMR-II) SC.IMMUN ONE (09:00)
[2022-09-10] MEDS ORDERED: ACET-683 PO (10:27)
[2022-09-10] MEDS ORDERED: COLA100C5 PO (10:27)
[2022-09-10] MEDS ORDERED: IBUP-1022 PO (10:27)
== END 2022-09-10 11:18 | disposition home or self-care (01) | DRG 560 ==
LOC: M LDO 17:39 → M LDI 18:25 → M OBS 09-08 21:30
PROVIDERS: ADMIT Specialist; ATTEND Specialist
PROC: 3E0P7GC Introduction of Other Therapeutic Substance into Female Reproductive, Via Natural or Artificial Opening (ICD-10-PCS; 2022-09-07)
PROC: 10E0XZZ Delivery of Products of Conception, External Approach (ICD-10-PCS; principal; 2022-09-08)
DX: O42.013 Preterm premature rupture of membranes, onset of labor within 24 hours of rupture, third trimester (principal); Z37.0 Single live birth; Z3A.36 36 weeks gestation of pregnancy

== ENCOUNTER → 2022-10-29 | Outpatient (CLI) | payer OTHER ==
[~2022-10-29] MED LIST changes: +IBUP-1022 PO
[2022-10-29 15:17] LABS: HEMATOCRIT 36.7 % (36.0-47.0); HEMOGLOBIN 11.2 g/dl (12.0-15.5); MEAN CORPUSCULAR HGB CONC 30.5 g/dl (32.0-36.5); MEAN CORPUSCULAR VOLUME 85.2 fl (80.0-96.0); PLATELET COUNT, AUTOMATED 259 10^3/uL (150-450); RED BLOOD COUNT 4.31 10^6/uL (4.00-5.40)
[2022-10-29 15:50] LABS: ALBUMIN 3.6 G/DL (3.2-5.2); ALKALINE PHOSPHATASE 88 U/L (46-116); ALT/SGPT 48 U/L (7.0-40); AST/SGOT 35 U/L (<34); BILIRUBIN,TOTAL 0.4 MG/DL (0.3-1.2); BLOOD UREA NITROGEN 18 MG/DL (9-23); CARBON DIOXIDE LEVEL 28 MMOL/L (20-31); CHLORIDE LEVEL 105 MMOL/L (98-107); CREATININE FOR GFR 0.55 MG/DL (0.55-1.30); GLOMERULAR FILTRATION RATE > 60.0 (>60); GLUCOSE, FASTING 95 MG/DL (60-100); POTASSIUM SERUM 4.4 MMOL/L (3.5-5.1); SODIUM LEVEL 138 MMOL/L (136-145); TOTAL PROTEIN 6.9 G/DL (5.7-8.2)
[2022-11-02 03:08] LABS: HEPATITIS C QUANTITATION 787000 IU/mL (.); HEPATITIS C VIRUS GENOTYPE 1a (.)
== END ==
LOC: M LAB 14:30
PROVIDERS: ATTEND Internal Medicine Infectious Disease
DX: B18.2 Chronic viral hepatitis C (principal)

== ENCOUNTER 2022-11-21 17:11 | Emergency (ER) | payer OTHER ==
[~2022-11-21] VITALS: Ht 154.9 cm; Wt 74.7 kg
[2022-11-21] MEDS ORDERED: SOFO1TAB PO (17:21)
[2022-11-21 17:50] LABS: BASO % 0.3 % (0.0-1.0); EOS # 0.1 10^3/uL (0.0-0.5); EOS % 1.2 % (0.0-3.0); HEMATOCRIT 34.5 % (36.0-47.0); LYMPH # 2.6 10^3/uL (1.5-5.0); LYMPH % 26.9 % (24.0-44.0); MEAN CORPUSCULAR HEMOGLOBIN 26.4 pg (27.0-33.0); MEAN CORPUSCULAR HGB CONC 31.9 g/dl (32.0-36.5); MEAN CORPUSCULAR VOLUME 82.9 fl (80.0-96.0); MONO # 0.6 10^3/uL (0.0-0.8); MONO % 6.3 % (2.0-8.0); NEUTROPHILS # 6.4 10^3/uL (1.5-8.5); PLATELET COUNT, AUTOMATED 305 10^3/uL (150-450); RED BLOOD COUNT 4.16 10^6/uL (4.00-5.40); WHITE BLOOD COUNT 9.8 10^3/uL (4.0-10.0)
[2022-11-21] MEDS ORDERED: ONDANSETRON 4MG 2ML VIAL IV ONE (18:15)
[2022-11-21] MEDS ORDERED: KETOROLAC 30 MG/ML 1ML VIAL IV ONE (18:15)
[2022-11-21 18:21] LABS: LIPASE 29 U/L (12-53)
[2022-11-21 18:23] LABS: ALKALINE PHOSPHATASE 80 U/L (46-116); ALT/SGPT 58 U/L (7.0-40); AMYLASE 44 U/L (30-118); AST/SGOT 35 U/L (<34); BILIRUBIN,DIRECT 0.1 MG/DL (<0.4); BILIRUBIN,TOTAL 0.4 MG/DL (0.3-1.2); BLOOD UREA NITROGEN 17 MG/DL (9-23); CALCIUM LEVEL 9.4 MG/DL (8.5-10.1); CARBON DIOXIDE LEVEL 27 MMOL/L (20-31); CHLORIDE LEVEL 104 MMOL/L (98-107); CREATININE FOR GFR 0.74 MG/DL (0.55-1.30); GLOMERULAR FILTRATION RATE > 60.0 (>60); GLUCOSE, FASTING 96 MG/DL (60-100); POTASSIUM SERUM 4.5 MMOL/L (3.5-5.1); SODIUM LEVEL 139 MMOL/L (136-145); TOTAL PROTEIN 7.2 G/DL (5.7-8.2)
[2022-11-21 18:33] LABS: HCG, SERUM QUALITATIVE NEGATIVE (NEGATIVE)
[2022-11-21] MEDS ORDERED: NS 1,000 ML IV ONE (19:40)
[2022-11-21] MEDS ORDERED: CEFUROXIME 500 MG TAB PO ONE (20:50)
[2022-11-21] MEDS ORDERED: TAMSULOSIN 0.4 MG CAP PO ONE (20:50)
[2022-11-21] MEDS ORDERED: ONDA4TAB6 PO (20:52)
[2022-11-21] MEDS ORDERED: FLOM0.4C39 PO (20:52)
[2022-11-21] MEDS ORDERED: CEFU50TA PO (20:52)
[2022-11-21] MEDS ORDERED: IBUP-1022 PO (20:52)
[2022-11-21] MEDS ORDERED: HYDR-3713 PO (20:52)
[2022-11-21 21:24] VITALS: BP 110/63
[2022-11-21] MEDS ORDERED: ACETAMINOPHEN TAB 650MG DOSE (2X325MG) PO ONE (21:25)
== END 2022-11-21 21:34 | disposition home or self-care (01) ==
LOC: M ED 17:11
DX: N13.2 Hydronephrosis with renal and ureteral calculous obstruction (principal); N39.0 Urinary tract infection, site not specified; I25.82 Chronic total occlusion of coronary artery; F17.200 Nicotine dependence, unspecified, uncomplicated
CPT/HCPCS: 74176; 80048; 80076; 81001; 82150; 83605; 83690; 84703; 85025; 87088; 87186; 96374; 96375; 99284; J1885; J2405

== ENCOUNTER 2022-11-24 20:08 | Inpatient (IN) | payer OTHER ==
[~2022-11-24] VITALS: Ht 154.9 cm; Wt 74.2 kg
[~2022-11-24 20:08] MED LIST changes: +CEFU50TA PO; +FLOM0.4C39 PO; +HYDR-3713 PO; +ONDA4TAB6 PO; +SOFO1TAB PO
[2022-11-24] MEDS ORDERED: PIPERACILLIN/TAZOBACTAM SOD 4.5 GM in D5W MINI-BAG PLUS 50 ML IV ONE (20:30)
[2022-11-24] MEDS ORDERED: ACETAMINOPHEN 1000MG 100ML IV BAG IV ONE (20:30)
[2022-11-24] MEDS ORDERED: NS 2,230 ML in IV 1 EA IV ONE (20:30)
[2022-11-24] MEDS ORDERED: ONDANSETRON 4MG 2ML VIAL IV ONE (20:30)
[2022-11-24 22:00] LABS: HEMATOCRIT 30.7 % (36.0-47.0); HEMOGLOBIN 9.8 g/dl (12.0-15.5); MEAN CORPUSCULAR HEMOGLOBIN 26.4 pg (27.0-33.0); MEAN CORPUSCULAR HGB CONC 31.9 g/dl (32.0-36.5); MEAN CORPUSCULAR VOLUME 82.7 fl (80.0-96.0); RED BLOOD COUNT 3.71 10^6/uL (4.00-5.40); WHITE BLOOD COUNT 1.1 10^3/uL (4.0-10.0)
[2022-11-24 22:16] LABS: LIPASE 16 U/L (12-53)
[2022-11-24 22:18] LABS: ALBUMIN 2.8 G/DL (3.2-5.2); ALKALINE PHOSPHATASE 152 U/L (46-116); ALT/SGPT 29 U/L (7.0-40); AST/SGOT 16 U/L (<34); BILIRUBIN,DIRECT 0.8 MG/DL (<0.4); BILIRUBIN,TOTAL 1.4 MG/DL (0.3-1.2); BLOOD UREA NITROGEN 23 MG/DL (9-23); CALCIUM LEVEL 8.4 MG/DL (8.5-10.1); CARBON DIOXIDE LEVEL 21 MMOL/L (20-31); CHLORIDE LEVEL 106 MMOL/L (98-107); CREATININE FOR GFR 1.43 MG/DL (0.55-1.30); GLOMERULAR FILTRATION RATE 46.9 (>60); GLUCOSE, FASTING 98 MG/DL (60-100); POTASSIUM SERUM 3.1 MMOL/L (3.5-5.1); SODIUM LEVEL 138 MMOL/L (136-145); TOTAL PROTEIN 5.9 G/DL (5.7-8.2)
[2022-11-24 22:19] LABS: HCG, SERUM QUALITATIVE NEGATIVE (NEGATIVE)
[2022-11-24 22:42] LABS: BASOPHILS 1 % (0-1); EOSINOPHILS 2 % (0-3); LYMPHOCYTES 28 % (16-44); MONOCYTES 2 % (0-5); NEUTROPHILS 61 % (28-66)
[2022-11-24 22:43] LABS: PLATELET ESTIMATE NORMAL (NORMAL)
[2022-11-24 22:44] LABS: TOXIC GRANULATION 2+; TOXIC VACUOLATION 1+
[2022-11-25] MEDS ORDERED: CEFU1TAB22 PO (00:05)
[2022-11-25] MEDS ORDERED: IBUP-1022 PO (00:05)
[2022-11-25] MEDS ORDERED: TAMS1CAP17 PO (00:05)
[2022-11-25] MEDS ORDERED: HOME MED LIST COMPLETE! XX SCH (00:05)
[2022-11-25] MEDS ORDERED: ONDA4TAB6 PO (00:05)
[2022-11-25] MEDS ORDERED: HYDR-3713 PO (00:05)
[2022-11-25] MEDS ORDERED: NOREPINEPHRINE 4MG IN D5 250ML 4 MG in IV 1 EA IV SCH ×4 (00:15→01:00)
[2022-11-25] MEDS ORDERED: NS 1,000 ML IV ONE (00:55)
[2022-11-25] MEDS ORDERED: ONDANSETRON 4MG 2ML VIAL IV PRN (01:10)
[2022-11-25] MEDS ORDERED: oxyCODONE 5MG TAB PO PRN ×2 (01:10→03:25)
[2022-11-25] MEDS ORDERED: fentaNYL 100 MCG/2 ML INJECTION IV PRN ×2 (01:10→03:25)
[2022-11-25] MEDS ORDERED: HYDROMORPHONE HCL 0.5 MG/ 0.5 ML SYRINGE IV PRN ×2 (01:10→03:25)
[2022-11-25] MEDS ORDERED: MEPERIDINE 25 MG/ML 1ML VIAL IV PRN ×2 (01:10→03:25)
[2022-11-25] MEDS ORDERED: ISOVUE-300 61% 100ML VIAL As Ordered ONE (01:30)
[2022-11-25] MEDS ORDERED: POTASSIUM CHLORIDE 10% LIQ 20MEQ/15ML UDC PO ONE (01:55)
[2022-11-25] MEDS ORDERED: LR 1,000 ML IV SCH (01:55)
[2022-11-25] MEDS ORDERED: KCL 20MEQ IN 100ML SWI (KRUN) 20 MEQ in IV 1 EA IV SCH ×2 (02:00)
[2022-11-25 02:19] LABS: MAGNESIUM LEVEL 1.4 MG/DL (1.8-2.4)
[2022-11-25] MEDS ORDERED: KETOROLAC 60MG 2ML VIAL As Ordered ONE (02:46)
[2022-11-25] MEDS ORDERED: ONDANSETRON 4MG 2ML VIAL As Ordered ONE ×2 (02:46→03:06)
[2022-11-25] MEDS ORDERED: propofoL 200 MG/20 ML VIAL As Ordered ONE (02:46)
[2022-11-25] MEDS ORDERED: fentaNYL 100 MCG/2 ML INJECTION As Ordered ONE ×2 (02:46→03:24)
[2022-11-25] MEDS ORDERED: LIDOCAINE 2% 100MG/5ML SDV (FOR ANES.) As Ordered ONE (02:46)
[2022-11-25] MEDS ORDERED: MIDAZOLAM INJ 2MG/2ML VIAL As Ordered ONE (02:46)
[2022-11-25] MEDS ORDERED: ONDANSETRON 4MG 2ML VIAL IV STA (03:04)
[2022-11-25] MEDS ORDERED: PROMETHAZINE 25MG/ML 1ML VIAL IV PRN (03:25)
[2022-11-25 03:40] VITALS: BP 112/63
[2022-11-25] MEDS ORDERED: PIPERACILLIN/TAZOBACTAM SOD 4.5 GM in D5W MINI-BAG PLUS 50 ML IV SCH (04:00)
[2022-11-25] MEDS ORDERED: HEPARIN SOD (PORCINE) 5000UNITS/ML 1ML VIAL/SYRINGE SC SCH (06:00)
[2022-11-25] MEDS ORDERED: PANTOPRAZOLE 40MG VIAL IV SCH (09:00)
== END 2022-11-25 04:40 | disposition short-term general hospital (02) | DRG 720 ==
LOC: M ED 20:08 → M ED INP 11-25 00:56 → M ICU 11-25 03:45
PROVIDERS: ADMIT Internal Medicine Pulmonary Disease; ATTEND Family Medicine
PROC: 0TJB8ZZ Inspection of Bladder, Via Natural or Artificial Opening Endoscopic (ICD-10-PCS; principal; 2022-11-25 01:17)
DX: A41.9 Sepsis, unspecified organism (principal); R65.21 Severe sepsis with septic shock; N17.9 Acute kidney failure, unspecified; N13.1 Hydronephrosis with ureteral stricture, not elsewhere classified; R16.0 Hepatomegaly, not elsewhere classified; R91.8 Other nonspecific abnormal finding of lung field; E87.6 Hypokalemia; Z79.899 Other long term (current) drug therapy; Z91.048 Other nonmedicinal substance allergy status; Z53.8 Procedure and treatment not carried out for other reasons

== ENCOUNTER → 2022-12-09 | Outpatient (CLI) | payer OTHER ==
[~2022-12-09] MED LIST changes: +CEFU1TAB22 PO; +TAMS1CAP17 PO
== END ==
LOC: M RAD 13:06
PROVIDERS: ATTEND Urology
DX: N20.0 Calculus of kidney (principal)

== ENCOUNTER → 2022-12-26 | Outpatient (REF) | payer OTHER | LOC: M PLALAB 14:20 | PROVIDERS: ATTEND Obstetrics & Gynecology | DX: Z12.4 Encounter for screening for malignant neoplasm of cervix (principal) ==

== ENCOUNTER → 2023-06-13 | Outpatient (REF) | payer OTHER ==
[2023-06-13 18:13] LABS: APPEARANCE, URINE HAZY (CLEAR); BACTERIA, URINE AUTO NEGATIVE (NEGATIVE); BILIRUBIN, URINE AUTO NEGATIVE (NEGATIVE); BLOOD, URINE BLOOD NEGATIVE (NEGATIVE); COLOR, URINE YELLOW (YELLOW); GLUCOSE, URINE (UA) AUTO NEGATIVE (NEGATIVE); KETONE, URINE AUTO NEGATIVE (NEGATIVE); LEUKOCYTE ESTERASE, URINE AUTO 3+ (NEGATIVE); NITRITE, URINE AUTO NEGATIVE (NEGATIVE); PROTEIN, URINE AUTO 1+ mg/dL (NEGATIVE); RBC, URINE AUTO 0 /HPF (0-3); SPECIFIC GRAVITY URINE AUTO 1.024 (1.002-1.035); SQUAMOUS EPITHELIAL CELL UR AU 3 /HPF (0-6); UROBILINOGEN, URINE AUTO 0.2 mg/dL (0.0-2.0); WBC, URINE AUTO 98 /HPF (0-3)
== END ==
LOC: M SMT 17:11
PROVIDERS: ATTEND Urology
DX: N39.0 Urinary tract infection, site not specified (principal)

== ENCOUNTER → 2023-06-27 | Outpatient (CLI) | payer OTHER | LOC: M RAD 12:43 | PROVIDERS: ATTEND Urology | DX: N20.0 Calculus of kidney (principal) ==

== ENCOUNTER 2024-01-28 10:34 | Emergency (ER) | payer OTHER ==
[~2024-01-28] VITALS: Ht 154.9 cm; Wt 81.3 kg
[2024-01-28 10:34] VITALS: BP 124/60; TEMP 101; O2SAT 96
[~2024-01-28 10:34] MED LIST changes: +ONDA-282 PO; -ONDA4TAB6 PO
[2024-01-28] MEDS ORDERED: IBUP-1022 PO (12:15)
[2024-01-28] MEDS ORDERED: ACET325C5 PO (12:15)
[2024-01-28] MEDS ORDERED: PENI500T PO (12:15)
[2024-01-28] MEDS: ACETAMINOPHEN TAB 650MG DOSE (2X325MG) PO ONE (12:19)
[2024-01-28] MEDS: PENICILLIN V POTASSIUM 500 MG TAB PO ONE (12:20)
[2024-01-28] MEDS: IBUPROFEN 600MG TAB PO ONE (12:20)
== END 2024-01-28 12:23 | disposition home or self-care (01) ==
LOC: M ED 10:34
DX: J02.0 Streptococcal pharyngitis (principal); F41.9 Anxiety disorder, unspecified; Z91.048 Other nonmedicinal substance allergy status; Z79.1 Long term (current) use of non-steroidal anti-inflammatories (NSAID); Z79.2 Long term (current) use of antibiotics

== ENCOUNTER 2024-05-16 12:55 | Emergency (ER) | payer OTHER ==
[~2024-05-16] VITALS: Ht 154.9 cm; Wt 75.8 kg
[~2024-05-16 12:55] MED LIST changes: +ACET325C5 PO; +PENI500T PO
[2024-05-16 14:43] VITALS: BP 109/56; TEMP 97.6; O2SAT 98
== END 2024-05-16 14:48 | disposition home or self-care (01) ==
LOC: M ED 12:55
DX: S60.221A Contusion of right hand, initial encounter (principal); S60.222A Contusion of left hand, initial encounter; Y92.019 Unspecified place in single-family (private) house as the place of occurrence of the external cause; Y93.9 Activity, unspecified; Y99.9 Unspecified external cause status; F17.210 Nicotine dependence, cigarettes, uncomplicated; Z86.19 Personal history of other infectious and parasitic diseases; Z91.048 Other nonmedicinal substance allergy status

== ENCOUNTER 2024-10-08 14:12 | Emergency (ER) | payer OTHER ==
[~2024-10-08] VITALS: Ht 154.9 cm; Wt 65.2 kg
[2024-10-08 15:13] VITALS: BP 102/60; TEMP 97.1; O2SAT 100
[2024-10-08] MEDS: IBUPROFEN 600MG TAB PO ONE (15:29)
== END 2024-10-08 15:30 | disposition home or self-care (01) ==
LOC: M ED 14:12
DX: S50.02XA Contusion of left elbow, initial encounter (principal); Y92.512 Supermarket, store or market as the place of occurrence of the external cause; Y93.9 Activity, unspecified; Y99.9 Unspecified external cause status; W01.0XXA Fall on same level from slipping, tripping and stumbling without subsequent striking against object, initial encounter; I25.2 Old myocardial infarction; F41.9 Anxiety disorder, unspecified; F32.A Depression, unspecified; Z91.048 Other nonmedicinal substance allergy status

== ENCOUNTER → 2025-02-10 | Outpatient (CLI) | payer OTHER ==
[~2025-02-10] MED LIST changes: +CEFD300C PO; -FLOM0.4C39 PO; +REGL10TA6 PO; +TAMS-18 PO
== END ==
LOC: M WHC 06:56
PROVIDERS: ATTEND Nurse Practitioner Family
DX: O99.332 Smoking (tobacco) complicating pregnancy, second trimester (principal); F17.210 Nicotine dependence, cigarettes, uncomplicated; Z3A.19 19 weeks gestation of pregnancy

== ENCOUNTER → 2025-04-07 | Outpatient (CLI) | payer OTHER ==
[~2025-04-07] MED LIST changes: -IBUP-1022 PO; +IBUP600T42 PO
[2025-04-07 16:50] LABS: PLATELET COUNT, AUTOMATED 360 10^3/uL (150-450)
[2025-04-07 16:51] LABS: GLUCOSE CHALLENGE TEST 1 HOUR 84 MG/DL (LESS THAN 140)
[2025-04-07 17:26] LABS: HIV 1&2 SCREEN NEGATIVE (NEGATIVE)
[2025-04-07 17:48] LABS: Trichomonas vaginalis (AMP) NOT DETECTED (NEGATIVE)
[2025-04-07 17:57] LABS: HEPATITIS C VIRUS ABY INDEX > 11.00 INDEX (<0.8)
[2025-04-07 18:12] LABS: GC DNA AMPLIFICATION NEGATIVE (NEGATIVE)
[2025-04-10 02:28] LABS: HCV RNA QUANTITATION 894000.0 IU/mL (NOT DETECTED); HCV RNA log10 5.95 Log IU/mL (NOT DETECTED)
== END ==
LOC: M PLALAB 12:57
PROVIDERS: ATTEND Obstetrics & Gynecology
DX: Z34.80 Encounter for supervision of other normal pregnancy, unspecified trimester (principal)

== ENCOUNTER → 2025-04-08 | Outpatient (REF) | payer OTHER | LOC: M PLALAB 09:07 | PROVIDERS: ATTEND Obstetrics & Gynecology | DX: Z53.9 Procedure and treatment not carried out, unspecified reason (principal) ==

== ENCOUNTER → 2025-04-19 | Outpatient (CLI) | payer OTHER | LOC: M WHC 09:44 | PROVIDERS: ATTEND Advanced Practice Midwife | DX: O99.012 Anemia complicating pregnancy, second trimester (principal) ==

== ENCOUNTER 2025-05-10 14:31 | Outpatient (CLI) | payer OTHER ==
[~2025-05-10] VITALS: Ht 154.9 cm; Wt 69.6 kg
[2025-05-10 14:49] VITALS: BP 90/57
[2025-05-10] MEDS ORDERED: IRON240T PO (14:51)
== END 2025-05-10 16:00 | disposition home or self-care (01) ==
LOC: M LDO 14:31
PROVIDERS: ATTEND Obstetrics & Gynecology
DX: O36.8330 Maternal care for abnormalities of the fetal heart rate or rhythm, third trimester, not applicable or unspecified (principal); O09.213 Supervision of pregnancy with history of pre-term labor, third trimester; O99.343 Other mental disorders complicating pregnancy, third trimester; O98.413 Viral hepatitis complicating pregnancy, third trimester; B18.2 Chronic viral hepatitis C; F32.A Depression, unspecified; F41.9 Anxiety disorder, unspecified; Z3A.31 31 weeks gestation of pregnancy
CPT/HCPCS: 59025; G0463

== ENCOUNTER → 2025-05-23 | Outpatient (CLI) | payer OTHER ==
[~2025-05-23] MED LIST changes: +IRON240T PO
[2025-05-23 17:38] LABS: PLATELET COUNT, AUTOMATED 321 10^3/uL (150-450)
[2025-05-23 17:54] LABS: ALT/SGPT 24 U/L (7.0-40); AST/SGOT 27 U/L (<34)
[2025-05-27 12:02] LABS: HCV RNA log10 5.90 Log IU/mL (NOT DETECTED)
[2025-05-29 01:17] LABS: FACTOR II PROTHROMBIN GENE AN NEGATIVE
== END ==
LOC: M PLALAB 15:44
PROVIDERS: ATTEND Obstetrics & Gynecology
DX: B18.2 Chronic viral hepatitis C (principal)

== ENCOUNTER → 2025-06-07 | Outpatient (REF) | payer OTHER | LOC: M PLALAB 16:10 | PROVIDERS: ATTEND Obstetrics & Gynecology | DX: Z3A.36 36 weeks gestation of pregnancy (principal) ==